=== PATIENT | male | born 1950 | race Caucasian/White ===

== ENCOUNTER 2019-07-30 14:04 | Inpatient (IN) | payer MEDICARE, MEDICAID, SELFPAY ==
[2019-07-30] VITALS (10 sets, daily range): BP systolic 88–133; BP diastolic 57–110; PULSE 77–102; RESP 12–30; TEMP 36.2; O2SAT 98–100; BMI 27.8
--- NOTE | ~2019-07-30 | XR_ITS ---
EXAMINATION: XR chest 1V portable EXAM DATE: 08/02/2019 05:52 INDICATION: Acute respiratory failure. TECHNIQUE: Portable AP frontal chest x-ray was obtained. Comparison is made to prior examination from 08/01/2019. FINDINGS: There is a left-sided chest tube in position. The left lung appears inflated. Endotracheal tube tip is 5 centimeters above the mika (ideal range is between 2 to 5 cm). Feeding tube and lef t IJ line appear in position. Moderate amount of left basilar predominant atelectasis and/or pneumonia again noted. There are no s izable pleural effusions. Cardiomediastinal silhouette is normal. There are bony degenerative méndez ges. There is aortic arterial sclerosis. There is no significant interval change compared to prior exam. IMPRESSION: 1. Line and tube(s) in position. 2. Stable airspace disease and other findings as above. Reviewed, dictated and finalized at location A.
--- NOTE | ~2019-07-30 | XR_ITS ---
EXAMINATION: XR chest port-a-cath/central INDICATION: Central line insertion TECHNIQUE: Portable AP chest at 1817 hours COMPARISON: 1501 hours FINDINGS: A left internal jugular central venous catheter has been inserted which ends with its tip i n the midsuperior vena cava. There is patchy airspace opacity of the left lung base. No pleural effus ion or pneumothorax is identified. IMPRESSION: 1. Left internal jugular central line insertion without pneumothorax. 2. Patchy opacity of the left lower lobe, likely pneumonia. Reviewed, dictated and finalized at location A.
--- NOTE | ~2019-07-30 | XR_ITS ---
EXAMINATION: XR chest 1V portable DATE: 08/11/2019 05:40 INDICATION: Left pneumothorax TECHNIQUE: frontal view of the chest was obtained. COMPARISON: Chest radiograph dated 08/11/[address] dated 08/06/2019 FINDINGS: Unchanged apically directed left chest tube. Left internal jugular central venous catheter with dista l tip at the caudal superior vena cava. No pneumothorax. Volume loss in the left hemithorax with leftward shift of the most sized heart and m ediastinum and compensatory hyperexpansion of the right lung. Hazy opacity throughout the left hemith orax with blunting at the costophrenic angle consistent with small pleural effusion. Patchy opacities at the left lung base could represent associated atelectasis and/or pneumonia. Right lung remains cl ear with no airspace disease or pleural effusion. Emphysema better appreciated on prior chest CT. Con tinued decrease in subcutaneous emphysema at the chest and base of the neck. IMPRESSION: 1. Unchanged left chest tube. No pneumothorax. 2. Persistent volume loss in left hemithorax with small left pleural effusion and left basilar atelec tasis and/or pneumonia. 3. Emphysema. Reviewed, dictated and finalized at location A. IMPRESSION: 1. Unchanged left chest tube. No pneumothorax. 2. Persistent volume loss in left hemithorax with small left pleural effusion a nd left basilar atelectasis and/or pneumonia. 3. Emphysema.
--- NOTE | ~2019-07-30 | XR_ITS ---
EXAMINATION: XR chest 1V portable DATE: 08/10/2019 05:54 INDICATION: Left pneumothorax and left lung consolidation TECHNIQUE: frontal view of the chest was obtained. COMPARISON: Chest radiograph dated 08/09/2019 FINDINGS: Unchanged apically directed left chest tube. Left internal jugular central venous catheter with dista l tip in the caudal superior vena cava. Right lung remains clear. Mild emphysematous changes at the apices. Persistent mild volume loss in th e left hemithorax with opacities in the left mid and lower lung zones. Small left pleural effusion wi th blunting at the costophrenic angle. No pneumothorax or right-sided pleural effusion. Heart size is normal. Persistent subcutaneous emphysema at the bilateral neck and chest. IMPRESSION: 1. Unchanged left chest tube with no pneumothorax. 2. No significant interval change in decreased left lung volume with small left pleural effusion and associated basilar atelectasis and/or pneumonia. 3. Emphysema. Reviewed, dictated and finalized at location A.
--- NOTE | ~2019-07-30 | XR_ITS ---
EXAMINATION: XR chest 1V portable EXAM DATE: 08/01/2019 09:19 INDICATION: Pneumothorax. TECHNIQUE: Portable AP frontal chest x-ray was obtained. Comparison is made to prior examination from earlier same date. FINDINGS: Left-sided chest tube has been removed. There has been redevelopment of a moderate-sized le ft-sided pneumothorax, pleural reflection has been indicated. Left axillary, thoracic wall and subcut aneous gas. Endotracheal tube tip is 5 centimeters above the mika (ideal range is between 2 to 5 cm). There is a left-sided IJ venous line in position. There is a nasogastric tube seen with tip collimated off th e study, but below the left hemidiaphragm. Patchy left basilar segmental atelectasis and/or pneumonia not significantly changed. Cardiomediastinal silhouette is normal. There is aortic arterial sclerosi s. There are bony degenerative changes. IMPRESSION: 1. Redevelopment of moderate size left-sided pneumothorax. 2. Left basilar multifocal atelectasis and/or pneumonia unchanged. Reviewed, dictated and finalized at location A.
--- NOTE | ~2019-07-30 | XR_ITS ---
EXAMINATION: XR chest 1V portable DATE: 08/05/2019 22:19 INDICATION: Chest tube with desaturations. TECHNIQUE: frontal view of the chest was obtained. COMPARISON: Chest radiograph dated 08/05/2019 FINDINGS: Apically directed left chest tube appears unchanged in position. No evident pneumothorax. Increasing opacities in the left lung which is decreased in volume with interval increase in leftward shift of t he heart and mediastinum. Right hemithorax remains clear with no focal airspace opacities, pulmonary edema or pleural effusion. Heart size is normal. Atherosclerotic aorta. Extensive subcutaneous emphys maritza throughout the chest likely related to chest tube placement. IMPRESSION: 1. Left chest tube in expected position with no evident residual left pneumothorax. 2. Increasing opacities throughout the left lung primarily to partial collapse of the left lung with leftward shift of the heart and mediastinum. Superimposed pneumonia not excludable. Reviewed, dictated and finalized at location A. IMPRESSION: 1. Left chest tube in expected position with no evident residual left pneumotho rax. 2. Increasing opacities throughout the left lung primarily to partial collapse of the left lung with leftward shift of the heart and mediastinum. Superimposed pneumonia not excludable.
--- NOTE | ~2019-07-30 | XR_ITS ---
EXAMINATION: XR chest 1V portable EXAM DATE: 08/01/2019 05:54 INDICATION: Left-sided pneumothorax. TECHNIQUE: Portable AP frontal chest x-ray was obtained. Comparison is made to prior examination from 07/30/2019. FINDINGS: There is a left-sided chest tube, which has retracted, with the tip still overlying the le ft hemithorax but the side-port now on the lateral aspect of the subcutaneous tissues. There is a yadi ogastric tube seen with tip collimated off the study, but below the left hemidiaphragm. There is a le ft IJ venous line overlying expected position. Moderate amount of left basilar predominant airspace disease. There are no sizable pleural effusions . There is no pneumothorax suspected. Cardiomediastinal silhouette is normal. The bones and soft tissues are unremarkable. Airspace disease appears to have mildly progressed compared to prior stud y. IMPRESSION: 1. Thoracic chest tube retraction with side port now in subcutaneous tissues. No evidence of pneumot horax. 2. Moderate left basilar atelectasis and/or pneumonia. I discussed chest tube position with nurse with nurse Dale at 08/01/2019 07:06 CDT . Reviewed, dictated and finalized at location A. IMPRESSION: 1. Thoracic chest tube retraction with side port now in subcutaneous tissues. No evidence of pneumothorax. 2. Moderate left basilar atelectasis and/or pneumonia. I discussed chest tube position with nurse with nurse Dale at 08/01/2019 07:0 6 CDT .
--- NOTE | ~2019-07-30 | XR_ITS ---
XR chest 1V portable 08/05/2019 02:50 Indication: Acute respiratory failure. Procedure: AP portable chest Comparison: Comparison to multiple prior studies sequentially, with oldest reviewed study dated 08/01. Findings: There has been significant progression of extensive subcutaneous emphysema of the neck and chest. There is a possible left pneumothorax, difficult to assess due to subcutaneous emphysema. Ther e is leftward mediastinal shift consistent with left lung collapse. There is subdiaphragmatic lucency which may relate to subcutaneous emphysema, distended bowel although pneumoperitoneum is not exclude d. Left IJ central line tip in the SVC. Impression: 1: Probable left pneumothorax with underlying compressive atelectasis. Mediastinal shift to the left, consistent with collapse. 2: Extensive subcutaneous emphysema of the neck and chest bilaterally which has progressed since larisa or examination. 3: Cannot exclude free intraperitoneal gas based on this examination. Reviewed, dictated and finalized at location A. Impression: 1: Probable left pneumothorax with underlying compressive atelectasis. Mediasti nal shift to the left, consistent with collapse. 2: Extensive subcutaneous emphysema of the neck and chest bilaterally which fernandes s progressed since prior examination. 3: Cannot exclude free intraperitoneal gas based on this examination.
--- NOTE | ~2019-07-30 | XR_ITS ---
XR abdomen NG/feed tube rechec DATE: 07/31/2019 09:03 INDICATION: Advancement of NG tube; recheck position TECHNIQUE: Portable supine AP view on 07/31/2019 at 0856 hours COMPARISON: 07/30/2019 portable supine AP view at 1925 hours FINDINGS: NG tube tip now overlies the distal body of the stomach. There is some gas distended small bowel segments as well as transverse colon. There is extensive calcification and tortuosity of the abdominal aorta and extensive calcification of the common, internal and external iliac arteries. Renal artery calcifications are noted. IMPRESSION: NG tube in distal body of stomach Reviewed, dictated and finalized at Location A. Reviewed, dictated and finalized at location B.
--- NOTE | ~2019-07-30 | XR_ITS ---
EXAMINATION: XR chest 1V portable DATE: 08/13/2019 05:43 INDICATION: Left pneumothorax TECHNIQUE: frontal view of the chest was obtained. COMPARISON: Chest radiograph dated 08/12/2019 FINDINGS: Unchanged apically directed left chest tube. No pneumothorax. Minimal change in a gradient of lower l vinnie predominant hazy airspace opacity throughout the left hemithorax with blunting at the costophreni c angle consistent with small left pleural effusion with associated basilar atelectasis and/or pneumo leonel. Hyperexpansion of lungs with increased lucency at the apices consistent with emphysema. Right johana ng remains clear with no pulmonary edema or pleural effusion. Persistent volume loss in left hemithor ax with mild leftward shift of the normal sized heart and mediastinum left internal jugular central v enous catheter with distal tip at the caudal superior vena cava. IMPRESSION: 1. Unchanged left chest tube. No pneumothorax. 2. Unchanged small left pleural effusion with associated atelectasis and/or pneumonia in the lower johana ng zone. 3. Emphysema. Reviewed, dictated and finalized at location A. IMPRESSION: 1. Unchanged left chest tube. No pneumothorax. 2. Unchanged small left pleural effusion with associated atelectasis and/or pne umonia in the lower lung zone. 3. Emphysema.
--- NOTE | ~2019-07-30 | XR_ITS ---
EXAMINATION: XR chest 1V portable DATE: 08/08/2019 05:30 INDICATION: Left pneumothorax and left lung consolidation TECHNIQUE: frontal view of the chest was obtained. COMPARISON: Chest radiograph dated 08/07/2019 FINDINGS: No interval change in position of an apically directed left chest tube. Left internal jugular central venous catheter with distal tip in the midsuperior vena cava. Emphysema. No significant interval change in airspace opacities in the left mid to lower lung zone co nsistent with small left pleural effusion and associated atelectasis and/or pneumonia. Right lung rem ains clear. No pneumothorax or right-sided pleural effusion. Cardiomediastinal silhouette remains wit hin normal limits accounting for leftward rotation of the patient. Extensive subcutaneous gas at the chest and neck and small amount of pneumomediastinum, both likely related to chest tube placement. IMPRESSION: 1. No significant change accounting for changes in patient positioning and a small left pleural effus ion with associated atelectasis and/or pneumonia. 2. Emphysema. Reviewed, dictated and finalized at location A. IMPRESSION: 1. No significant change accounting for changes in patient positioning and a sm all left pleural effusion with associated atelectasis and/or pneumonia. 2. Emphysema.
--- NOTE | ~2019-07-30 | XR_ITS ---
EXAMINATION: XR chest 1V portable EXAM DATE: 08/03/2019 05:23 INDICATION: Acute respiratory failure. Intubated. TECHNIQUE: Portable AP frontal chest x-ray was obtained. Comparison is made to prior examination from 08/02/2019. FINDINGS: There is a left-sided chest tube in position. The left lung appears inflated. Endotracheal tube tip is 6 centimeters above the mika (ideal range is between 2 to 5 cm). Feeding tube and left IJ line appear in position. Moderate amount of left basilar predominant atelectasis and/or pneumonia. There are no sizable pleur al effusions. Cardiomediastinal silhouette is normal. There are bony degenerative changes. There i s aortic arterial sclerosis. There is no significant interval change compared to prior exam. IMPRESSION: 1. ET tube could be safely advanced 1-2 cm. 2. Stable airspace disease and other findings as above. Reviewed, dictated and finalized at location A.
--- NOTE | ~2019-07-30 | XR_ITS ---
EXAMINATION: XR chest ET placement INDICATION: Endotracheal tube insertion TECHNIQUE: Portable AP chest at 1925 hours COMPARISON: 1810 hours FINDINGS: An endotracheal tube has been inserted which ends 4.1 cm above the mika. A left internal jugular central venous catheter ends in the midsuperior vena cava. Patchy opacities of the left lung base persist. There is been development of opacities in the mid and upper lung zones. A nasogastric h as been inserted which ends with its tip at the gastroesophageal junction. The cardiomediastinal silh ouette is normal. A small left pneumothorax has developed. IMPRESSION: 1. Small left pneumothorax. These findings were discussed with Dr. Johnie López MD in the Emergenc y Department at 1946 hours on 07/30/2019. 2. Endotracheal tube ending 4.1 cm above the mika. 3. Patchy opacities of the mid and upper lung zones and left lower lobe, likely pneumonia and/or pulm onary edema. 4. Nasogastric tube ending at the gastroesophageal junction which can be safely advanced 11 cm. Reviewed, dictated and finalized at location A. IMPRESSION: 1. Small left pneumothorax. These findings were discussed with Dr. Johnie harris MD in the Emergency Department at 1946 hours on 07/30/2019. 2. Endotracheal tube ending 4.1 cm above the mika. 3. Patchy opacities of the mid and upper lung zones and left lower lobe, likely pneumonia and/or pulmonary edema. 4. Nasogastric tube ending at the gastroesophageal junction which can be safely advanced 11 cm.
--- NOTE | ~2019-07-30 | XR_ITS ---
EXAMINATION: XR chest 1V portable EXAM DATE: 08/02/2019 07:59 INDICATION: Chest tube changed to waterseal. TECHNIQUE: Portable AP frontal chest x-ray was obtained. Comparison is made to prior examination from earlier same date. FINDINGS: There is a left-sided chest tube in position. The left lung appears inflated. Endotracheal tube tip is 6 centimeters above the mika (ideal range is between 2 to 5 cm). Feeding tube and lef t IJ line appear in position. Moderate amount of left basilar predominant atelectasis and/or pneumonia again noted. There are no s izable pleural effusions. Cardiomediastinal silhouette is normal. There are bony degenerative méndez ges. There is aortic arterial sclerosis. There is no significant interval change compared to prior exam. IMPRESSION: 1. ET tube could be safely advanced 1-2 cm. 2. Stable airspace disease and other findings as above. Reviewed, dictated and finalized at location A.
--- NOTE | ~2019-07-30 | XR_ITS ---
XR chest 1V portable DATE: 08/13/2019 16:40 INDICATION: Removal of left chest TECHNIQUE: Portable AP chest, 2 views, on 08/13/2019 at 1636 and 1637 hours COMPARISON: 08/13/2019 portable AP chest at 0533 hours FINDINGS: There is interval removal of left thoracostomy tube since 0533 hours today. There is persistent left lower lung infiltrate/atelectasis with leftward shift of the heart mediastin um and compensatory hyperaeration of the right lung. No pneumothorax is evident. Mild blunting of the left costophrenic angle suggests mild left pleural effusion. No right pleural effusion. Normal heart size. Aortic calcification. Diffuse osteopenia. IMPRESSION: Removal of left thoracostomy tube; no pneumothorax Persistent left lower lung infiltrate/atelectasis and mild left pleural effusion Reviewed, dictated and finalized at location B. IMPRESSION: Removal of left thoracostomy tube; no pneumothorax Persistent left lower lung infiltrate/atelectasis and mild left pleural effusio n
--- NOTE | ~2019-07-30 | XR_ITS ---
EXAMINATION: XR chest 1V portable DATE: 08/09/2019 07:40 INDICATION: Change chest tube to waterseal from suction. TECHNIQUE: frontal view of the chest was obtained. COMPARISON: Chest radiograph dated 08/09/2019 at 5:[address] dated 08/06/2019 FINDINGS: Unchanged position of an apically directed left chest tube. Left internal jugular central venous cath eter with distal tip at the caudal superior vena cava. Decreased left lung volume accentuated by leftward rotation. Opacities in the left mid and lower lung zone consistent with small bilateral pleural effusion and associated atelectasis and/or pneumonia. N o pneumothorax. Right lung is clear with increased lucency in the lower lung zone likely related to e mphysema better appreciated on prior CT. No pulmonary edema or right-sided pleural effusion. Heart si ze is normal. Subcutaneous emphysema at the neck and left chest wall. There is also mild pneumomedias tinum. IMPRESSION: 1. No pneumothorax. 2. Decreased left lung volume with persistent opacities in the mid and lower lung zone which could re present atelectasis and/or pneumonia. 3. Small left pleural effusion. 4. Emphysema. Reviewed, dictated and finalized at location A. IMPRESSION: 1. No pneumothorax. 2. Decreased left lung volume with persistent opacities in the mid and lower johana ng zone which could represent atelectasis and/or pneumonia. 3. Small left pleural effusion. 4. Emphysema.
--- NOTE | ~2019-07-30 | XR_ITS ---
EXAMINATION: XR chest-chest tube insert/pos DATE: 08/01/2019 11:40 CDT INDICATION: Left pneumothorax post chest tube placement TECHNIQUE: frontal view of the chest was obtained. COMPARISON: Chest radiograph dated 08/01/2019 at 9:15 AM FINDINGS: Endotracheal tube tip 5.1 cm above the mika. Left internal jugular central venous catheter with dis wendi tip at the caudal superior vena cava. Nasogastric tube with proximal side-port in the body of the stomach and with distal tip collimated off the study. Interval placement of an apically directed left thoracostomy tube with resolution of prior left pneum othorax. Persistent interstitial and airspace opacities in the left mid and lower lung zones. No pleu ral effusion. No right-sided airspace disease or pneumothorax. The cardiomediastinal silhouette is no rmal. Persistent subcutaneous gas along the left chest wall related to an earlier chest tube placemen t. IMPRESSION: 1. Resolution of left pneumothorax post placement of a new left chest tube. 2. Lung disease in the left mid to lower lung zone which could represent atelectasis, pneumonia or as ymmetric pulmonary edema. Reviewed, dictated and finalized at location A. IMPRESSION: 1. Resolution of left pneumothorax post placement of a new left chest tube. 2. Lung disease in the left mid to lower lung zone which could represent atelec tasis, pneumonia or asymmetric pulmonary edema.
--- NOTE | ~2019-07-30 | XR_ITS ---
XR chest 1V portable 08/05/2019 09:07 Indication: Change of chest tube system. Left pneumothorax.. Procedure: AP portable chest Comparison: 08/05/2019 Findings: Left apical chest tube present. Left IJ central line tip in the SVC. Significantly decrease d size of left pneumothorax with possible residual pneumothorax at the left lung base. Decreased left airspace consolidation, consistent with resolving atelectasis. Persistent mild mediastinal shift to the left. Decreased subcutaneous gas of the neck and chest. Right lung clear. Impression: 1: Decreased size of left pneumothorax and improved left basilar airspace consolidation, likely resol ving collapse. Reviewed, dictated and finalized at location A. Impression: 1: Decreased size of left pneumothorax and improved left basilar airspace conso lidation, likely resolving collapse.
--- NOTE | ~2019-07-30 | XR_ITS ---
XR chest 1V portable DATE: 07/30/2019 15:03 INDICATION: Shortness of breath TECHNIQUE: Portable upright AP chest on 07/30/2019 at 1503 hours COMPARISON: None FINDINGS: There is interstitial prominence in the left lower lung field which may be due to interstit ial pneumonitis or fibrosis. The lungs are clear of infiltrate or consolidation otherwise. There is minimal if any left pleural ef fusion. No right pleural effusion. Normal heart size. Aortic calcification and mild unfolding. Diffuse osteopenia. IMPRESSION: Interstitial infiltrate versus interstitial fibrosis, left lower lung. Interstitial pneum onia is favored; clinical correlation is advised. Reviewed, dictated and finalized at location B. IMPRESSION: Interstitial infiltrate versus interstitial fibrosis, left lower johana ng. Interstitial pneumonia is favored; clinical correlation is advised.
--- NOTE | ~2019-07-30 | XR_ITS ---
EXAMINATION: XR chest 1V portable INDICATION: Hypoxia TECHNIQUE: Portable AP chest at 0918 hours COMPARISON: 08/05/2019 FINDINGS: There is improved aeration of the left lung compared to prior examination. Left basilar air space opacities persist. A left chest tube projects in expected position without evidence of residual pneumothorax. There is extensive subcutaneous emphysema. A left internal jugular central venous cath eter ends with its tip in the distal superior vena cava. The cardiomediastinal silhouette is stable. IMPRESSION: 1. Improved aeration of the left lung with minimal residual opacity of the left lung base, consistent with atelectasis and/or pneumonia. 2. Left chest tube in expected position without visible pneumothorax. 3. Extensive subcutaneous emphysema. Reviewed, dictated and finalized at location B.
--- NOTE | ~2019-07-30 | XR_ITS ---
EXAMINATION: XR chest 1V portable DATE: 08/09/2019 05:41 INDICATION: Left pneumothorax. Left lung consolidation. TECHNIQUE: frontal view of the chest was obtained. COMPARISON: Chest radiograph dated 08/08/2019 FINDINGS: Unchanged position of the apically directed left chest tube. Left internal jugular central venous cat heter with distal tip at the caudal superior vena cava. Small left pleural effusion with persistent o pacities in the left lower lung zone. Right lung remains clear. No pulmonary edema, pneumothorax or r ight-sided pleural effusion. Cardiac mediastinal silhouette unchanged and within normal limits accoun ting for leftward rotation of the patient. Again seen is subcutaneous edema at the left chest and cristian ateral neck along with small amount of mediastinal emphysema. IMPRESSION: 1. Minimal change in a small left pleural effusion and left basilar opacities which could represent a telectasis and/or pneumonia. Reviewed, dictated and finalized at location A. IMPRESSION: 1. Minimal change in a small left pleural effusion and left basilar opacities w hich could represent atelectasis and/or pneumonia.
--- NOTE | ~2019-07-30 | CT_ITS ---
EXAMINATION:CT chest high resolution wo co DATE: 08/06/2019 16:07 INDICATION: Hypoxemia. Left pneumothorax. TECHNIQUE: Computed tomography (CT) of the chest was performed without intravenous contrast. Automate d exposure control and iterative reconstruction technique were employed. The dose-length product (DLP ) was 175.09 mGy-cm. COMPARISON: Chest single view 07/30/2019, 08/06/2019 FINDINGS: There is moderate emphysema. There is mild scarring at the lung apices. There are extensive airspace opacities in left lower lobe with volume loss. There are dependent airspace opacities in ri ght lower lobe. There are small pleural effusions, left greater than right. The left-sided pleural ef fusion demonstrates mixed attenuation. There is a left-sided chest tube in the pleural space anterior ly with tip abutting the mediastinum. Pneumomediastinum is noted. There is extensive soft tissue gas in the chest and neck bilaterally. No pneumothorax. The heart size is normal. There are coronary darren ry calcifications. No pericardial effusion. There is a left internal jugular central venous catheter with tip in superior vena cava. There is cortical thinning of left kidney. There is mild thoracic spo ndylosis. IMPRESSION: 1. Small pleural effusions, left worse than right. The left pleural effusion demonstrates mixed atten uation, consistent with an exudate. Left-sided chest tube in the anterior pleural space. 2. Extensive airspace opacities in left lower lobe with volume loss, likely at least predominantly at electasis. Pneumonia cannot be excluded. Mild dependent atelectasis in right lower lobe. 3. Moderate emphysema. Reviewed, dictated and finalized at location A. IMPRESSION: 1. Small pleural effusions, left worse than right. The left pleural effusion de monstrates mixed attenuation, consistent with an exudate. Left-sided chest tube in the anterior pleural space. 2. Extensive airspace opacities in left lower lobe with volume loss, likely at least predominantly atelectasis. Pneumonia cannot be excluded. Mild dependent a telectasis in right lower lobe. 3. Moderate emphysema.
--- NOTE | ~2019-07-30 | XR_ITS ---
EXAMINATION: XR chest 1V portable INDICATION: Chest tube insertion TECHNIQUE: Portable AP chest at 8 hours COMPARISON: 5 hours FINDINGS: A left-sided chest tube has been inserted. The previously described left pneumothorax is no longer evident. The nasogastric tube has advanced into the stomach. The endotracheal tube ends 4.3 c m above the mika. Again seen are patchy opacities of the left lung base and bilateral mid and upper lung zones. There is no pleural effusion. Cardiomediastinal silhouette is stable.. IMPRESSION: 1. No persistent pneumothorax post chest tube insertion. 2. Nasogastric tube advanced into the stomach. Otherwise, no significant interval change. Reviewed, dictated and finalized at location A. IMPRESSION: 1. No persistent pneumothorax post chest tube insertion. 2. Nasogastric tube advanced into the stomach. Otherwise, no significant interv al change.
--- NOTE | ~2019-07-30 | XR_ITS ---
EXAMINATION: XR chest 1V portable DATE: 08/12/2019 05:22 INDICATION: Left pneumothorax TECHNIQUE: frontal view of the chest was obtained. COMPARISON: Chest radiograph dated 08/11/[address] dated 08/06/2019 FINDINGS: Change apically directed left chest tube. Left internal jugular central venous catheter with distal t ip at the caudal superior vena cava. Improving aeration of the left lung. No pneumothorax. Opacities throughout the left lung with basilar predominance and blunting at the left costophrenic angle. Right lung remains hyperexpanded but clear with no pulmonary edema or right pleural effusion. Mild leftward shift of the normal sized heart and mediastinum likely exaggerated by some leftward rotation of the patient. IMPRESSION: 1. Unchanged left chest tube. No pneumothorax. 2. Improving aeration in the left lung with persistent opacities consistent with small left pleural e ffusion and associated atelectasis and/or pneumonia. 3. Emphysema. Reviewed, dictated and finalized at location A. IMPRESSION: 1. Unchanged left chest tube. No pneumothorax. 2. Improving aeration in the left lung with persistent opacities consistent wit h small left pleural effusion and associated atelectasis and/or pneumonia. 3. Emphysema.
--- NOTE | ~2019-07-30 | XR_ITS ---
EXAMINATION: XR abdomen NG/feed tube insert INDICATION: Nasogastric tube placement TECHNIQUE: Portable AP [id number] at 1925 hours COMPARISON: None available FINDINGS: The tip of the nasogastric tube ends at the gastroesophageal junction. The proximal side po rt is in the distal esophagus. There patchy opacities of the mid and upper lung zones and left lung b ase. A small left pneumothorax is identified. There is gaseous distention of the transverse colon. IMPRESSION: 1. Nasogastric tube with its tip at the gastroesophageal junction, can be safely advanced 11 cm. 2. Small left pneumothorax. ER aware. Reviewed, dictated and finalized at location A. IMPRESSION: 1. Nasogastric tube with its tip at the gastroesophageal junction, can be safel y advanced 11 cm. 2. Small left pneumothorax. ER aware.
--- NOTE | ~2019-07-30 | XR_ITS ---
XR chest 1V portable 08/04/2019 06:23 Indication: Acute respiratory failure Procedure: AP portable chest Comparison: Comparison to multiple prior studies sequentially, with oldest reviewed study dated 07/31. Findings: Interval removal of endotracheal and NG tubes. Diffuse bilateral airspace disease, likely e lisa. Heart size normal. Subcutaneous gas in the neck left chest wall. Left-sided apical chest tube i n position. No definite pneumothorax. Left IJ central line tip in the SVC. Atherosclerosis. Impression: 1: Cardiomegaly with pulmonary edema. Cannot exclude superimposed pneumonia. 2: Extensive subcutaneous emphysema. Reviewed, dictated and finalized at location A. Impression: 1: Cardiomegaly with pulmonary edema. Cannot exclude superimposed pneumonia. 2: Extensive subcutaneous emphysema.
--- NOTE | ~2019-07-30 | XR_ITS ---
EXAMINATION: XR chest 1V portable DATE: 08/15/2019 08:26 INDICATION: Left pneumothorax. TECHNIQUE: A single frontal view of the chest was obtained on 2 radiographs. COMPARISON: Chest single view 08/13/2019, chest CT 08/06/2019 FINDINGS: There is mild scarring at the lung apices. There are airspace opacities in left mid and low er lung zones with a basilar predominance. There is gas in left chest wall with improvement from 08/05. Again seen is a small volume of pneumomediastinum. No pleural effusion or pneumothorax. The he art size is normal. IMPRESSION: 1. No pneumothorax. 2. Persistent pneumomediastinum. 3. Unchanged airspace opacities in left mid and lower lung zones with a basilar predominance, consist ent with atelectasis versus pneumonia. Reviewed, dictated and finalized at location A. IMPRESSION: 1. No pneumothorax. 2. Persistent pneumomediastinum. 3. Unchanged airspace opacities in left mid and lower lung zones with a basilar predominance, consistent with atelectasis versus pneumonia.
--- NOTE | ~2019-07-30 | XR_ITS ---
EXAMINATION: XR chest 1V portable DATE: 08/07/2019 05:48 INDICATION: Left pneumothorax and left lung consolidation. TECHNIQUE: frontal view of the chest was obtained. COMPARISON: Chest radiograph and CT dated 08/06/2019 FINDINGS: No interval change in position of a posterior directed left chest tube. Left internal jugular central venous catheter with distal tip at the caudal superior vena cava. Emphysema with hyperexpansion of l ungs. Increasing gradient of a predominant hazy airspace opacity in the left mid to lower lung zone c onsistent with small posteriorly layering pleural effusion with superimposed atelectasis and/or pneum onia. No pneumothorax or definitive right pleural effusion. Diffuse subcutaneous emphysema throughout the chest and neck. IMPRESSION: 1. Increasing small left pleural effusion with associated atelectasis and/or pneumonia. 2. Emphysema. Reviewed, dictated and finalized at location A. IMPRESSION: 1. Increasing small left pleural effusion with associated atelectasis and/or pn eumonia. 2. Emphysema.
--- NOTE | 2019-07-30 14:10 | ECG_ITS ---
Measurements Intervals [place] Rate: 96 P: 58 WV: 137 QRS: 16 QRSD: 90 T: 58 QT: 320 QTc: 406 Interpretive Statements SINUS OR ECTOPIC ATRIAL RHYTHM LOW QRS VOLTAGE IN LIMB LEADS BORDERLINE R WAVE PROGRESSION, ANTERIOR LEADS BASELINE WANDER- II, III, AVF, V1, V3-V6 BORDERLINE ECG Electronically Signed On 07-30-2019 15:21:08 CDT by Morgan Stevens D.O.
--- NOTE | 2019-07-30 14:15 | ED.GENADULT ---
HPI - General Adult General Chief complaint: Unspecified Stated complaint: low blood pressure Time Seen by Provider: 07/30/19 14:15 Source: patient and EMS Mode of arrival: ambulatory Limitations: other (poor historian) History of Present Illness HPI narrative: A 69 y/o male presents to the ED with c/o low BP. Per EMS, they were called out by pt's wound care doctor for hypovolemic shock. Pt denies any pain at this time and told EMS that he just wanted to eat. He denies CP, N/V, fever, and chills. A complete HPI is limited due to poor historian. Related Data Allergies Allergy/AdvReac Type Severity Reaction Status Date / Time No Known Allergies Allergy Unverified 03/11/16 06:58 Review of Systems Review of Systems: Narrative: A complete ROS is limited due to poor historian. Constitutional: Constitutional: Denies chills and Denies fever(s) Cardiovascular: Cardiovascular: Denies chest pain Comments: Reports: low BP Gastrointestinal: Gastrointestinal: Denies nausea and Denies vomiting [facility] Past Medical History Medical History Bladder mass CHF (congestive heart failure) COPD (chronic obstructive pulmonary disease) Dementia Emphysema lung GERD (gastroesophageal reflux disease) HLD (hyperlipidemia) HTN (hypertension) PVD (peripheral vascular disease) Surgical History Surgical History History of below-knee amputation of both lower extremities Social History Social History (Updated 07/30/19 @ 14:22 by Muna Cheung) Smoking status: Smoker, status unknown Comments PCP: Dr. Negrete Exam Narrative: Exam Narrative: GENERAL: [id number], undernourished, and in no acute distress. HEAD: Normocephalic, atraumatic. EYES: PERRLA and EOMI. ENT: Nares clear, Mucous membranes moist. NECK: Supple. CHEST: Clear to auscultation. No respiratory distress. HEART: Tachycardic. No murmur heard. Normal peripheral pulses. ABDOMEN: Soft, non tender,, normal active bowel sounds. EXTREMITIES: Normal range of motion. No edema. Bilateral BKA SKIN: Warm, dry, no rash. NEURO: No focal deficits. Alert and oriented x2 PSYCH: Normal mood and affect. Course Course Emergency Course: Patient did not respond to IV boluses, central line was placed in the left internal jugular, Levophed was started IV Zosyn and vancomycin was given. Vital Signs Vital signs: Vital Signs Temperature 36.2 C L 07/30/19 14:00 Pulse Rate 97 07/30/19 14:00 Respiratory Rate 28 H 07/30/19 14:00 Blood Pressure 133/110 H 07/30/19 14:00 Pulse Oximetry 98 07/30/19 14:00 Temperature 36.2 C L 07/30/19 14:00 Pulse Rate 102 H 07/30/19 15:33 Respiratory Rate 30 H 07/30/19 15:33 Blood Pressure 104/86 07/30/19 15:33 Pulse Oximetry 98 07/30/19 15:33 Procedures Central Line Placement Left IJ: Central Line Date: 07/30/19 Central Line Time: 18:36 Time Out Performed: Yes Patient Placed on Monitor/Pulse Ox: Yes Max. Sterile Barrier Technique: Caps, large sterile sheet and hand hygiene Central Line Prep: 2% chlorhexidine scrub Technique: US-Guided Local Anesthetic: lidocaine 1% Ultrasound Used for Placement: Yes Central Line Lumen Inserted: triple Post Procedure: sutured in place and good blood return Post Procedure X-Ray: tip of catheter in good position Additional Comments: Dr Rm was at bed side doing procedure . Medical Decision Making Vital Signs Vital Signs: Vital Signs Temperature 36.2 C L 07/30/19 14:00 Pulse Rate 97 07/30/19 14:00 Respiratory Rate 28 H 07/30/19 14:00 Blood Pressure 133/110 H 07/30/19 14:00 Pulse Oximetry 98 07/30/19 14:00 Temperature 36.2 C L 07/30/19 14:00 Pulse Rate 102 H 07/30/19 15:33 Respiratory Rate 30 H 07/30/19 15:33 Blood Pressure 104/86 07/30/19 15:33 Pulse Oximetry 98 03
[2019-07-30 14:47] LABS: Hematocrit 33.6 % (42.0-52.0); Hemoglobin 10.3 g/dL (14.0-18.0); Mean Corpuscular HGB Conc 30.7 g/dl (32-36); Mean Corpuscular Hemoglobin 29.3 pg (26-34); Mean Corpuscular Volume 95.5 fl (80-100); Mean Platelet Volume 10.6 fl (7.4-10.4); Platelet Count Result 335 k/mm3 (150-375); Red Blood Count 3.52 M/mm3 (4.6-6.20); Red Cell Distribution Width 15.7 % (11.5-14.5)
[2019-07-30 15:05] LABS: Albumin Level 3.6 g/dL (3.5-5.1); Alkaline Phosphatase 85 U/L (38-126); Aspartate Amino Transferase 92 U/L (17-59); Bilirubin,Total 0.9 mg/dL (0.2-1.3); Blood Urea Nitrogen 55 mg/dL (9-20); Calcium 9.2 mg/dL (8.4-10.2); Carbon Dioxide 13 mmol/L (22-30); Chloride 102 mmol/L (98-107); Estimated Glomerular Filt Rate 26; Glucose 92 mg/dL (75-110); Potassium 4.4 mmol/L (3.4-5.0); Sodium 140 mmol/L (137-145)
[2019-07-30 15:16] LABS: Troponin I 0.093 ng/mL (0.000-0.034)
[2019-07-30 15:17] LABS: Lactic Acid Reflex 12.3 mmol/L (0.7-2.1)
[2019-07-30 15:18] LABS: Alanine Aminotransferase 46 U/L (4-50)
[2019-07-30 15:24] LABS: Band Neutrophils Percent 3 % (0-6); Lymphocytes Absolute Manual 2.99 K/mm3 (1.1-4.5); Monocytes Absolute Manual 2.53 K/mm3 (0.1-0.90); Monocytes Percent Manual 11 % (3-9); Neutrophils Absolute Manual 17.48 K/mm3 (1.3-6.7); Neutrophils Percent Manual 73 % (46-73); Platelet Estimate Adequate (Adequate); Total Cells Counted 100
[2019-07-30] MEDS: SODIUM CHLORIDE 0.9% IV 1,000 ML 999 ML IV CONT ×2 (16:54→21:00)
[2019-07-30] MEDS: SODIUM CHLORIDE 0.9% IV 1,000 ML 999 ML (16:55)
[2019-07-30 17:03] LABS: Add Urine Microscopic? YES; Appearance Urine Cloudy (Clear); Bacteria Urine 4+ /hpf; Bilirubin Urine Negative (Negative); Blood Urine 1+ (Negative); Budding Yeast Urine Present /hpf; Color Urine Yellow (Yellow); Glucose Urine UA 1+ mg/dL (Negative); Ketones Urine Trace mg/dL (Negative); Leukocyte Esterase Ur Trace LEU/UL (Negative); Nitrate Urine Negative (Negative); Protein Urine 3+ mg/dL (Negative); Specific Grav Ur 1.018 (1.001-1.035); Squamous Epithelial Cell Urine Few /hpf (Few); Urobilinogen Urine Negative mg/dL (<2.0); WBC Clumps Urine Present /HPF; WBC Urine >75 /hpf
[2019-07-30 17:45] LABS: Reflex Lactic Acid Yes or No Add Lactic
[2019-07-30] MEDS: LORAZEPAM INJ 2 MG/ML VIAL (17:50)
[2019-07-30] MEDS: NOREPINEPHRINE 8 MG/D5W 250 ML 8 MG/250 ML BAG 9.4 MG IV CONT (18:27)
--- NOTE | 2019-07-30 19:00 | PC.NURSE ---
1903 10mg Etomidate given via IV 190 80mg Succinylcholine given via IV 190 Intubation completed 21 at the lip, placed by EDP. 1908 NG tube placed X rays ordered for placement.
--- NOTE | 2019-07-30 19:40 | PC.NURSE ---
Called at 1934 to ICU to give report. Ramona HAGEN took report.
--- NOTE | 2019-07-30 20:16 | PM.IMHP ---
H&P: HPI History of Present Illness Chief complaint: Left pneumothorax Narrative: This is a 69 year old male with known HTN, COPD, CHF, and b/l BKA who presented to the hospital from his wound care doctor secondary to hypotension. The patient was found to be significantly hypotensive and did recieve 2 liters of IV fluids in the ER. A left IJ central line was placed and the patient was started on levophed. He was found to be in septic shock w/ an elevated WBC, abnormal urinalysis, elevated lactic acid of 12.3. The patient was started on wide spectrum IV antiboitics. Document Specialist, Dr. Her was consulted by ER provider. The patient decompensated while in the ER and was emergently intubated and placed on mechanical ventilation. On my encounter with the patient he is alone and on mechanical ventilation. There is no family present and no further history is obtainable at this time. Review of Systems Review of Systems: ROS unobtainable: unobtainable due to endotracheal tube and unobtainable due to mental condition PMFSH Past Medical History Medical History Bladder mass CHF (congestive heart failure) COPD (chronic obstructive pulmonary disease) Dementia Emphysema lung GERD (gastroesophageal reflux disease) HLD (hyperlipidemia) HTN (hypertension) PVD (peripheral vascular disease) Surgical History Surgical History History of below-knee amputation of both lower extremities Social History Social History Smoking status: Smoker, status unknown Additional smoking assessment comments: Patient unable to answer questions. Sedated/intubated. Alcohol intake: unknown Substance use: unknown Spiritual care concerns: No Meds Home Medications and Allergies Home Medications Medication Instructions Recorded Confirmed Type acetaminophen 650 mg PO Q4-6H PRN 07/30/19 07/30/19 History amlodipine 10 mg PO DAILY 07/30/19 07/30/19 History aspirin [Aspir-81] 81 mg PO DAILY 07/30/19 07/30/19 History atorvastatin 10 mg PO HS 07/30/19 07/30/19 History cholecalciferol (vitamin D3) 50,000 unit PO MONTHLY 07/30/19 07/30/19 History clotrimazole-betamethasone 1 applic TOPICAL BID 07/30/19 07/30/19 History divalproex 250 mg PO BID 07/30/19 07/30/19 History lisinopril 2.5 mg PO DAILY 07/30/19 07/30/19 History metoprolol succinate 25 mg PO DAILY 07/30/19 07/30/19 History mtgevbaqkrgd-brfkfwov-mlwdmj 1 tablet PO DAILY 07/30/19 07/30/19 History [Multivitamin 50 Plus] omeprazole 20 mg PO DAILY 07/30/19 07/30/19 History Allergies Allergy/AdvReac Type Severity Reaction Status Date / Time No Known Allergies Allergy Unverified 03/11/16 06:58 Vital Signs Vital Signs - 24 hr 07/30/19 14:00 07/30/19 14:07 07/30/19 14:45 Temperature 36.2 C L Pulse Rate 97 97 Respiratory Rate 28 H 24 H Blood Pressure 133/110 H Pulse Oximetry 98 98 07/30/19 15:33 07/30/19 19:13 07/30/19 19:42 Temperature Pulse Rate 102 H 95 89 Respiratory Rate 30 H 16 12 Blood Pressure 104/86 88/73 L 93/57 L Pulse Oximetry 98 100 100 Exam Const: General: ill appearing and other (Intubated and on mechanical ventilation. ) Nutritional Appearance: cachectic and thin Orientation/consciousness: Other orientation findings (Intubated and on mechanical ventilation. ) HENMT: Head: normal to inspection General nose exam: Normal external nose present Face and sinus: normal facial exam Eyes: Pupils: Equal, round and reactive pupils present Neck: Neck: supple and no JVD Thyroid: thyroid normal Lymphatic: lymphadenopathy not noted Resp: Effort & Inspection: normal respiratory effort Auscultation: other (course breath sounds b/l++ ) Cardio: Rate: regular rate Rhythm: regular rhythm Heart sounds: no murmurs GI: Inspection: normal to inspection Auscultation: normal bowel sounds Skin:
--- NOTE | 2019-07-30 20:18 | PC.NURSE ---
This nurse notified MD Garcia that respiratory needed a sedative in order to draw ABG that the hospitalist requested moments before leaving the patient's room, due to Pt moving hands and body making it hard to obtain blood draw. MD Garcia stated Pt had been admitted and ABG could be drawn upstairs. child welfare counselor notified by this nurse of Pt needing ABG and stated the Pt had been admitted and to get him up to the ICU. This nurse called and told Ramona that ABG would need to still be drawn.
[2019-07-30] MEDS: MIDAZOLAM HCL 50 MG in DEXTROSE 5% 90 ML IV CONT (20:20)
[2019-07-30] MEDS: MIDAZOLAM HCL 2 MG/2 ML VIAL 4 MG IV PUSH (20:50)
[2019-07-30] MEDS: NOREPINEPHRINE 8 MG/D5W 250 ML 8 MG/250 ML BAG 56.3 MG IV CONT (20:55)
[2019-07-30 21:19] LABS: Alveolar/Arterial O2 Gradient 255.2 mmHg; Base Excess ABG -6.8 mEq/l (+/-2.0); Fractional Inspired Oxygen 100 %; HCO3 ABG 17.9 mEq/l (22.0-26.0); Oxygen Content ABG 15.7 %vol (16.0-22.0); Oxygen Saturation ABG 99.8 % (95.0-100.0); Oxyhemoglobin 98.5 % THb (90.0-100.0); PCO2 ABG 33.2 mmHg (35.0-45.0); PO2 ABG 424.6 mmHg (80.0-100.0); PO2 FiO2 Ratio Arterial Blood 4.25 %; Total Hemoglobin 10.5 g/dL (12.0-18.0)
[2019-07-30 21:20] LABS: Arterial Blood Gas Vent Mode CMV; Arterial Blood Gas Ventilator rate 12 /MIN; Device VENTILATOR; Modified Allen's Test Pass; Site Drawn LEFT RADIAL
[2019-07-30 21:21] LABS: Arterial Blood Gas PEEP 5 cmH2O; Arterial Blood Gas Tidal Volume 400 ml
[2019-07-30 21:39] LABS: Lactic Acid Reflex 1.7 mmol/L (0.7-2.1)
[2019-07-30] MEDS: SODIUM BICARBONATE 8.4% 50 MEQ/50 ML VIAL IV PUSH (21:43)
[2019-07-30] MEDS: SODIUM BICARBONATE 8.4% 150 MEQ in DEXTROSE 5% 1,000 ML 950 ML IV CONT (22:07)
--- NOTE | 2019-07-30 23:42 | PC.NURSE ---
At 2216 I administered norepinephrine drip without scanning the barcode after being instructed to do so per kristy Leonardo. Jorden stated he would not be sending a scannable lable and that the scanning should be bypassed for this med administration. In order to accurately chart titrations on this medication, I administered it without a barcode scan.
--- NOTE | 2019-07-30 23:45 | ADMGEN ---
This patient, Garcia Goodwin, was admitted to Intensive Care Unit-2. Patient/family unable to be oriented to hospital policies and general routines including ID bracelet, bed and alarms, visiting hours, pain management, procedures, bathroom and other care routines, personal items, smoking policy, room service/diet, and visiting hours due to sedation and intubation. Valuables list has been completed. Information on how to activate the Rapid Response Team has been discussed. Patient/Family are encouraged to report perceived risks to care and to ask questions if they do not understand what they are told or what they should do.
[2019-07-31] VITALS (26 sets, daily range): BP systolic 72–120; BP diastolic 53–80; PULSE 75–110; RESP 15–23; TEMP 36.9–38.6; O2SAT 98–100; BMI 28.1
--- NOTE | 2019-07-31 | ECHO_ITS ---
Patient Info Name: Garcia Goodwin Age: 69 years : 1950 Gender: Male Ht: 55 in Wt: 121 lbs BSA: 1.48 m2 HR: 115 bpm BP: 89 / 53 mmHg Heart Rhythm: Tachycardia Technical Quality: Fair Exam Date: 07/31/2019 9:43 AM Exam Location: [facility] Patient Status: Inpatient Admit Date: 07/30/2019 Staff Ordering Physician: Jones Her MD Dyed Yarn Operator: Micah Schmitt RDCS Attending Provider: Jolene Hooker PA-C Referring Physician: Arden DORMAN; Exam Type: CA echo doppler color flow Study Info Indications R65.21 - Severe sepsis with septic shock Complete two-dimensional, color flow and Doppler transthoracic echocardiogram is performed. History/Risk Factors Septic shock; CHF, COPD, HTN, acute respiratory failure, BKA. Summary 1. Poor echocardiographic imaging. Limited visualization of myocardium. Grossly normal ejection fraction. Wall motion assessment cannot be provided. 2. Right ventricular chamber dimension is mildly enlarged. 3. Left atrial chamber dimension is mildly enlarged. 4. There is mild aortic valve sclerosis. 5. There is mild tricuspid valve regurgitation. 6. Technically difficult study. Left Ventricle Left ventricular chamber dimension is normal. The left ventricular diastolic function is grade I diastolic dysfunction. Poor echocardiographic imaging. Limited visualization of myocardium. Grossly normal ejection fraction. Wall motion assessment cannot be provided. Right Ventricle Right ventricular chamber dimension is mildly enlarged. Right ventricular systolic function is normal. Left Atria Left atrial chamber dimension is mildly enlarged. Right Atria Right atrial chamber dimension is normal. Atrial Septum Intact interatrial septum visualized by color flow imaging. Aortic Valve The aortic valve is trileaflet. There is mild aortic valve sclerosis. There is no aortic valve stenosis. There is trace aortic valve regurgitation. Pulmonic Valve The pulmonic valve is normal. There is no pulmonic valve stenosis. There is trace pulmonic regurgitation. Mitral Valve The mitral valve has normal leaflets. There is no mitral valve stenosis. There is mild mitral valve regurgitation. Tricuspid Valve The tricuspid valve leaflets are normal. There is no significant tricuspid valve stenosis. There is mild tricuspid valve regurgitation. Other Findings Technically difficult study. Pericardium/Pleural The pericardium appears normal. There is no pericardial effusion. Inferior Vena Cava Dilated inferior vena cava with >50% collapse upon inspiration consistent with elevated right atrial pressure, 10 mmHg. Aorta The aortic root size at the sinus of Valsalva is not well visualized. Mitral Valve Name Value Normal MV Doppler MV Decel [place] 354 cm/s2 MV PHT 50 ms MV Area (PHT) 4.4 cm2 4.0-5.0 MV Diastolic Function MV E Peak Velocity 61 cm/s MV A Peak Velocity 54 cm/s MV E/A 1.1
[2019-07-31] MEDS: NOREPINEPHRINE 8 MG/D5W 250 ML 8 MG/250 ML BAG 37.5 MG IV CONT (01:56)
[2019-07-31 04:04] LABS: Alveolar/Arterial O2 Gradient 136.3 mmHg; Base Excess ABG 2.6 mEq/l (+/-2.0); Fractional Inspired Oxygen 40 %; HCO3 ABG 26.1 mEq/l (22.0-26.0); Oxygen Content ABG 13.9 %vol (16.0-22.0); Oxygen Saturation ABG 98.3 % (95.0-100.0); Oxyhemoglobin 96.4 % THb (90.0-100.0); PCO2 ABG 35.8 mmHg (35.0-45.0); PO2 ABG 107.7 mmHg (80.0-100.0); PO2 FiO2 Ratio Arterial Blood 2.69 %; Total Hemoglobin 10.1 g/dL (12.0-18.0)
[2019-07-31 04:05] LABS: Arterial Blood Gas PEEP 5 cmH2O; Arterial Blood Gas Vent Mode CMV; Arterial Blood Gas Ventilator rate 14 /MIN; Device VENTILATOR; Modified Allen's Test Pass; Site Drawn LEFT RADIAL
[2019-07-31 04:06] LABS: Arterial Blood Gas Tidal Volume 400 ml
[2019-07-31 05:13] LABS: Hematocrit 28.1 % (42.0-52.0); Hemoglobin 9.1 g/dL (14.0-18.0); Mean Corpuscular HGB Conc 32.4 g/dl (32-36); Mean Corpuscular Hemoglobin 29.3 pg (26-34); Mean Corpuscular Volume 90.4 fl (80-100); Mean Platelet Volume 10.4 fl (7.4-10.4); Platelet Count Result 299 k/mm3 (150-375); Red Blood Count 3.11 M/mm3 (4.6-6.20); Red Cell Distribution Width 15.3 % (11.5-14.5); White Blood Count 9.5 K/mm3 (4.5-10.0)
[2019-07-31 05:30] LABS: Blood Urea Nitrogen 50 mg/dL (9-20); Calcium 7.1 mg/dL (8.4-10.2); Carbon Dioxide 29 mmol/L (22-30); Chloride 103 mmol/L (98-107); Estimated Glomerular Filt Rate 50; Glucose 147 mg/dL (75-110); Potassium 3.9 mmol/L (3.4-5.0); Sodium 135 mmol/L (137-145)
[2019-07-31] MEDS: SODIUM BICARBONATE 8.4% 150 MEQ in DEXTROSE 5% 1,000 ML 950 ML IV CONT (05:31)
[2019-07-31 07:03] LABS: Band Neutrophils Percent 14 % (0-6); Lymphocytes Absolute Manual 1.52 K/mm3 (1.1-4.5); Monocytes Absolute Manual 0.57 K/mm3 (0.1-0.90); Monocytes Percent Manual 6 % (3-9); Neutrophils Absolute Manual 7.41 K/mm3 (1.3-6.7); Neutrophils Percent Manual 64 % (46-73); Total Cells Counted 100
[2019-07-31 07:04] LABS: Hypochromasia 1+ (NORMAL); Ovalocytes 1+ (NORMAL); Platelet Estimate Adequate (Adequate); Poikilocytosis 1+ (NORMAL)
[2019-07-31] MEDS: NOREPINEPHRINE 8 MG/D5W 250 ML 8 MG/250 ML BAG 46.9 MG IV CONT (07:47)
[2019-07-31] MEDS: LACTATED RINGERS 1,000 ML 100 ML IV CONT ×2 (07:47→15:44)
--- NOTE | 2019-07-31 09:11 | WPDCNINT ---
Assessment and Plan Assessment and plan (1) Septic shock: Code(s): A41.9 - Sepsis, unspecified organism; R65.21 - Severe sepsis with septic shock Status: Acute Assessment and Plan: patient presented with hypotension, found to elevated lactic acid, acute kidney injury. - Likely source of septic shock: Lungs and urine - patient was adequately fluid resuscitated, left IJ central line in place - continue Levophed and Micheal-Synephrine, is maintain mean arterial pressures greater than 65 mmHg - Continue vancomycin and Zosyn - blood in urine cultures have been obtained and pending (2) Acute respiratory failure: Qualifiers: Respiratory failure complication: unspecified whether with hypoxia or hypercapnia Qualified Code(s): J96.00 - Acute respiratory failure, unspecified whether with hypoxia or hypercapnia Code(s): J96.00 - Acute respiratory failure, unspecified whether with hypoxia or hypercapnia Status: Acute Assessment and Plan: respiratory failure likely related to pneumonia, intubated on 07/30/2019. Influenza A and B were negative in the ED - chest x-ray and ABGs reviewed - continue antibiotics as above - will start bronchodilators, Pulmozyme - continue sedation with Versed and fentanyl, daily sedation vacation, maintain RASS of 0 to -2 (3) Pneumothorax on left: Code(s): J93.9 - Pneumothorax, unspecified Status: Acute Assessment and Plan: iatrogenic pneumothorax status post left IJ line. Chest tube in place - pneumothorax resolved on repeat chest x-ray this morning (4) UTI (urinary tract infection): Qualifiers: Urinary tract infection type: site unspecified Hematuria presence: without hematuria Qualified Code(s): N39.0 - Urinary tract infection, site not specified Code(s): N39.0 - Urinary tract infection, site not specified Status: Acute Assessment and Plan: UA revealed urinary tract infection - urine cultures obtained and pending, continue antibiotics as above (5) GERD (gastroesophageal reflux disease): Qualifiers: Esophagitis presence: esophagitis presence not specified Qualified Code(s): K21.9 - Gastro-esophageal reflux disease without esophagitis Code(s): K21.9 - Gastro-esophageal reflux disease without esophagitis Status: Acute Assessment and Plan: started on Protonix (6) CHF (congestive heart failure): Qualifiers: Heart failure type: unspecified Heart failure chronicity: chronic Qualified Code(s): I50.9 - Heart failure, unspecified Code(s): I50.9 - Heart failure, unspecified Status: Chronic Assessment and Plan: history of congestive heart failure, will obtain echocardiogram to evaluate cardiac status (7) DVT prophylaxis: Code(s): Z29.9 - Encounter for prophylactic measures, unspecified Status: Acute Assessment and Plan: heparin SQ Additional Plan will discuss with family when available. Code status: Full code Critical care time spent: 43 minutes Due to a high probability of clinically significant, life threatening deterioration, the patient required my highest level of preparedness to intervene emergently and I personally spent this critical care time directly and personally managing the patient. This critical care time included obtaining a history; examining the patient; pulse oximetry; ordering and review of studies; arranging urgent treatment with development of a management plan; evaluation of patient's response to treatment; frequent reassessment; and discussions with other providers. It was exclusive of separately billable procedures and treating other patients and teaching time. Please see Assessment and Plan section and the rest of the note for further information on patient assessment and treatment Lab Coordinator Consult Note Consult date: 07/31/19 Time Seen: 06:57 Reason for consult: Septic shock, acute
--- NOTE | 2019-07-31 09:34 | PM.CNGS ---
Assessment and Plan Assessment and plan (1) Pneumothorax on left: Code(s): J93.9 - Pneumothorax, unspecified Status: Acute Assessment and Plan: Small left pneumothorax on chest x-ray status post left internal jugular central venous catheter placement. Left anterior chest tube in place and working well. Will obtain serial chest x-rays daily. Keep the chest tube to -20 cm of suction today. We will continue to monitor the chest tube while the patient is on mechanical ventilation. Thank you for allowing me to see the patient consultation and will continue to follow along with you. (2) Acute respiratory failure: Qualifiers: Respiratory failure complication: unspecified whether with hypoxia or hypercapnia Qualified Code(s): J96.00 - Acute respiratory failure, unspecified whether with hypoxia or hypercapnia Code(s): J96.00 - Acute respiratory failure, unspecified whether with hypoxia or hypercapnia Status: Acute Assessment and Plan: Currently intubated and sedated. Care per Labour Market Economist. (3) Septic shock: Code(s): A41.9 - Sepsis, unspecified organism; R65.21 - Severe sepsis with septic shock Status: Acute Assessment and Plan: Criteria met on admission with leukocytosis, lactic acidosis, tachypnea, and tachycardia. Patient has been treated with IV fluid boluses and is currently on vasopressor support. Leukocytosis and lactic acidosis resolved today. Currently on broad-spectrum IV antibiotics. Cultures pending. (4) Metabolic acidosis: Code(s): E87.2 - Acidosis Status: Acute (5) UTI (urinary tract infection): Qualifiers: Urinary tract infection type: site unspecified Hematuria presence: without hematuria Qualified Code(s): N39.0 - Urinary tract infection, site not specified Code(s): N39.0 - Urinary tract infection, site not specified Status: Acute (6) COPD (chronic obstructive pulmonary disease): Qualifiers: COPD type: unspecified COPD Qualified Code(s): J44.9 - Chronic obstructive pulmonary disease, unspecified Code(s): J44.9 - Chronic obstructive pulmonary disease, unspecified Status: Chronic (7) CHF (congestive heart failure): Qualifiers: Heart failure type: unspecified Heart failure chronicity: chronic Qualified Code(s): I50.9 - Heart failure, unspecified Code(s): I50.9 - Heart failure, unspecified Status: Chronic Additional Plan Discussed the patient's case and plan of care with Dr. Cuellar. History of Present Illness Consult details Consult date: 07/31/19 Reason for consult: chest tube (Left pneumothorax status post chest tube placement) Requesting physician: Johnie López MD Narrative: This is a 69-year-old male with a history of CHF, COPD, and hypertension, who presented to the emergency department via EMS from his wound care doctor due to hypotension. The patient was evaluated in the ER [place] [address] and lactic acid of 12.3. He became hypotensive and tachycardic in the emergency department and was fluid resuscitated, although still ultimately required vasopressor support. A left IJ central line was placed by the ED physician. The patient went into respiratory failure and required intubation as well. Chest x-ray following procedures showed a small left pneumothorax. The patient was transferred to the ICU and admitted to the hospitalist service. Labour Market Economist was consulted. Our service was consulted for the small left pneumothorax and chest tube management. The patient is now being seen in the intensive care unit. No family is at the bedside. Unable to obtain a significant history due to the patient's medical status, therefore his history is obtained from the electronic medical record. Patient is currently intubated and sedated. He is still on vasopressors. Review of Systems Review of Systems: ROS unobtainable: unobtain
[2019-07-31] MEDS: PANTOPRAZOLE SODIUM IV 40 MG VIAL IV PUSH (09:54)
[2019-07-31] MEDS: HYDROCORTISONE SODIUM SUCCINATE 100 MG/2 ML VIAL 50 MG IV PUSH ×3 (11:02→23:41)
[2019-07-31 11:14] LABS: Magnesium 2.3 mg/dL (1.6-2.3)
--- NOTE | 2019-07-31 11:21 | PM.IMPN ---
Progress Note: A&P Assessment and Plan (1) Acute respiratory failure: Qualifiers: Respiratory failure complication: unspecified whether with hypoxia or hypercapnia Qualified Code(s): J96.00 - Acute respiratory failure, unspecified whether with hypoxia or hypercapnia Code(s): J96.00 - Acute respiratory failure, unspecified whether with hypoxia or hypercapnia Status: Acute Assessment and Plan: Remains sedated ventilator. Management per money manager. Probably result of pneumonia. Continue nebulizer treatments including Pulmozyme. Continue IV Zosyn and vancomycin. (2) Septic shock: Code(s): A41.9 - Sepsis, unspecified organism; R65.21 - Severe sepsis with septic shock Status: Acute Assessment and Plan: Criteria met on admission. Blood, urine and sputum cultures pending. Remains on phenylephrine and Levophed. Blood pressure reviewed on 07/31/2019 and stable. Telemetry reviewed on 07/31/2019 with sinus rhythm. (3) Pneumothorax on left: Code(s): J93.9 - Pneumothorax, unspecified Status: Acute Assessment and Plan: Likely caused during left IJ central line placement in ER. General surgery consulted and appreciate help. Chest tube remains in place. Chest xray today with no persistent pneumothorax. Management per general surgery. (4) Pneumonia: Qualifiers: Pneumonia type: due to unspecified organism Laterality: bilateral Lung location: unspecified part of lung Qualified Code(s): J18.9 - Pneumonia, unspecified organism Code(s): J18.9 - Pneumonia, unspecified organism Status: Acute Assessment and Plan: Patchy opacities of left lung base adn bilateral mid and upper lung zones. Continue respiratory treatments and IV antibiotics as noted. (5) UTI (urinary tract infection): Qualifiers: Hematuria presence: without hematuria Urinary tract infection type: site unspecified Qualified Code(s): N39.0 - Urinary tract infection, site not specified Code(s): N39.0 - Urinary tract infection, site not specified Status: Acute Assessment and Plan: U/A suspicious. Urine culture pending. Continue IV antibiotics as noted. (6) Normocytic anemia: Code(s): D64.9 - Anemia, unspecified Status: Acute Assessment and Plan: Hemoglobin 9.1 today. Will monitor. No sign of bleeding. (7) Metabolic acidosis: Code(s): E87.2 - Acidosis Status: Acute Assessment and Plan: Secondary to septic shock and hypoperfusion. CO2 29 today. Monitor with treatment of acute issues as noted. (8) COPD (chronic obstructive pulmonary disease): Qualifiers: COPD type: unspecified COPD Qualified Code(s): J44.9 - Chronic obstructive pulmonary disease, unspecified Code(s): J44.9 - Chronic obstructive pulmonary disease, unspecified Status: Chronic Assessment and Plan: Now on ventilator as noted above. Continue respiratory treatments as noted. (9) CHF (congestive heart failure): Qualifiers: Heart failure chronicity: chronic Heart failure type: unspecified Qualified Code(s): I50.9 - Heart failure, unspecified Code(s): I50.9 - Heart failure, unspecified Status: Chronic Assessment and Plan: Echocardiogram completed with grossly normal ejection fraction, grade 1 diastolic dysfunction and mild tricuspid valve regurgitation. Home lisinopril and metoprolol on hold. (10) GERD (gastroesophageal reflux disease): Qualifiers: Esophagitis presence: esophagitis presence not specified Qualified Code(s): K21.9 - Gastro-esophageal reflux disease without esophagitis Code(s): K21.9 - Gastro-esophageal reflux disease without esophagitis Status: Acute Assessment and Plan: Continue IV Protonix. (11) DVT prophylaxis: Code(s): Z29.9 - Encounter for prophylactic measures, unspecified Status: Acute Assessment and Plan:
--- NOTE | 2019-07-31 13:04 | PCFNICU ---
ICU Rounding Note: Pt current nutrition is NPO. Nutrition recommendation: Jevity 1.5 at 25 ml/hr advance by 10 ml q 4 hours to goal rate of 45 ml/hr Last recorded weight is [f pt wt kg]kg. Bowel Motility:+BM reported 07/30/19 Labs Reviewed:Na 135,BUN 50,Cr 1.4,Glu 147,Ca 7.1 Meds Noted:Zosyn,LR 1000 ml at 100 ml/hr, Levophed Additional Notes: Patient currently on mechanical ventilator. Bilateral BKA. Wounds: Right and Left Stump-Deep Tissue ulcer, Left hip-blister. Additional protein needs would recommend Pro stat once daily with water flush, providing additional 100 kcals and 15 gms protein. Following daily in ICU rounds and every Tuesday and Tuesday.
[2019-07-31] MEDS: NOREPINEPHRINE 8 MG/D5W 250 ML 8 MG/250 ML BAG 52.5 MG IV CONT ×2 (13:05→17:08)
[2019-07-31] MEDS: HEPARIN SODIUM 5,000 UNITS/ML VIAL 5000 UNITS SUB-Q ×2 (13:47→21:07)
[2019-07-31] MEDS: IPRATROPIUM BR 0.02% INH SOLN 0.5 MG/2.5 ML VIAL INHALATION ×2 (14:56→20:19)
[2019-07-31] MEDS: LEVALBUTEROL NEB 1.25 MG/3 ML 0.63 MG INHALATION ×2 (14:57→20:19)
[2019-07-31] MEDS: MIDAZOLAM HCL 50 MG in DEXTROSE 5% 90 ML IV CONT (19:59)
[2019-07-31] MEDS: DORNASE ALFA INH SOLN 1 MG/ML 2.5 ML AMP 2.5 MG INHALATION (20:18)
[2019-07-31] MEDS: NOREPINEPHRINE 8 MG/D5W 250 ML 8 MG/250 ML BAG 18.8 MG IV CONT (23:40)
[2019-08-01] VITALS (29 sets, daily range): BP systolic 85–114; BP diastolic 54–70; PULSE 59–78; RESP 13–20; TEMP 36.8–37.1; O2SAT 97–100
[2019-08-01] MEDS: IPRATROPIUM BR 0.02% INH SOLN 0.5 MG/2.5 ML VIAL INHALATION ×4 (02:22→19:20)
[2019-08-01] MEDS: LEVALBUTEROL NEB 1.25 MG/3 ML 0.63 MG INHALATION ×4 (02:22→19:20)
[2019-08-01] MEDS: LACTATED RINGERS 1,000 ML 100 ML IV CONT ×3 (02:52→21:45)
[2019-08-01 03:12] LABS: Alveolar/Arterial O2 Gradient 82.5 mmHg; Base Excess ABG 1.7 mEq/l (+/-2.0); Carboxyhemoglobin 0.3 % THb (0-2.0); Fractional Inspired Oxygen 30 %; HCO3 ABG 25.6 mEq/l (22.0-26.0); Methemoglobin ABG 0.6 %THb (0-1.5); Oxygen Content ABG 13.8 %vol (16.0-22.0); Oxygen Saturation ABG 97.1 % (95.0-100.0); Oxyhemoglobin 94.8 % THb (90.0-100.0); PCO2 ABG 37.4 mmHg (35.0-45.0); PO2 ABG 87.5 mmHg (80.0-100.0); PO2 FiO2 Ratio Arterial Blood 2.92 %; Reduced Hemoglobin 4.3 %THb (0-5.0); Total Hemoglobin 10.3 g/dL (12.0-18.0); pH ABG 7.453 (7.350-7.450)
[2019-08-01 03:14] LABS: Arterial Blood Gas Ventilator rate 14 /MIN; Device VENTILATOR; Modified Allen's Test Pass; Site Drawn LEFT RADIAL
[2019-08-01 03:15] LABS: Arterial Blood Gas PEEP 5 cmH2O; Arterial Blood Gas Tidal Volume 400 ml; Arterial Blood Gas Vent Mode CMV
[2019-08-01 05:33] LABS: Hemoglobin 8.1 g/dL (14.0-18.0); Mean Corpuscular HGB Conc 33.8 g/dl (32-36); Mean Corpuscular Hemoglobin 29.8 pg (26-34); Mean Corpuscular Volume 88.2 fl (80-100); Mean Platelet Volume 10.1 fl (7.4-10.4); Platelet Count Result 278 k/mm3 (150-375); Red Blood Count 2.72 M/mm3 (4.6-6.20); Red Cell Distribution Width 15.2 % (11.5-14.5); White Blood Count 17.5 K/mm3 (4.5-10.0)
[2019-08-01] MEDS: HYDROCORTISONE SODIUM SUCCINATE 100 MG/2 ML VIAL 50 MG IV PUSH ×4 (05:33→22:55)
[2019-08-01] MEDS: HEPARIN SODIUM 5,000 UNITS/ML VIAL 5000 UNITS SUB-Q ×3 (05:33→19:55)
[2019-08-01 05:50] LABS: Lactic Acid 2.2 mmol/L (0.7-2.1)
[2019-08-01 06:09] LABS: Blood Urea Nitrogen 33 mg/dL (9-20); Calcium 7.3 mg/dL (8.4-10.2); Carbon Dioxide 30 mmol/L (22-30); Chloride 99 mmol/L (98-107); Estimated Glomerular Filt Rate > 60; Glucose 170 mg/dL (75-110); Magnesium 2.4 mg/dL (1.6-2.3); Phosphorus 3.4 mg/dL (2.5-4.5); Potassium 3.8 mmol/L (3.4-5.0); Sodium 132 mmol/L (137-145)
[2019-08-01] MEDS: PANTOPRAZOLE SODIUM IV 40 MG VIAL IV PUSH (07:30)
[2019-08-01] MEDS: NOREPINEPHRINE 8 MG/D5W 250 ML 8 MG/250 ML BAG 16.9 MG IV CONT (07:44)
--- NOTE | 2019-08-01 08:01 | PM.IMPN ---
Progress Note: A&P Assessment and Plan (1) Acute respiratory failure: Qualifiers: Respiratory failure complication: unspecified whether with hypoxia or hypercapnia Qualified Code(s): J96.00 - Acute respiratory failure, unspecified whether with hypoxia or hypercapnia Code(s): J96.00 - Acute respiratory failure, unspecified whether with hypoxia or hypercapnia Status: Acute Assessment and Plan: Remains sedated ventilator. Management per cold rolling coordinator. Probably result of pneumonia. Continue nebulizer treatments including Pulmozyme. Continue IV Zosyn and vancomycin. Continue nebulizer treatments. Remains on IV fluids. Continue IV steroids. (2) Septic shock: Code(s): A41.9 - Sepsis, unspecified organism; R65.21 - Severe sepsis with septic shock Status: Acute Assessment and Plan: Criteria met on admission. 1 of 2 blood cultures now positive for gram-negative bacilli. Urine culture negative. Sputum culture pending. MRSA nasal swab negative. Now on Levophed alone. Blood pressure reviewed on 08/01/2019 and low but stable. Telemetry reviewed on 08/01/2019 with sinus rhythm. WBC up to 17.5 today and will follow. (3) Pneumothorax on left: Code(s): J93.9 - Pneumothorax, unspecified Status: Acute Assessment and Plan: Likely caused during left IJ central line placement in ER. General surgery consulted and appreciate help. Imaging today with no pneumothorax but side port of chest tube in subcutaneous tissue. Discussed with surgery. Chest tube to be removed today. (4) Pneumonia: Qualifiers: Laterality: bilateral Lung location: unspecified part of lung Pneumonia type: due to unspecified organism Qualified Code(s): J18.9 - Pneumonia, unspecified organism Code(s): J18.9 - Pneumonia, unspecified organism Status: Acute Assessment and Plan: Patchy opacities of left lung base adn bilateral mid and upper lung zones. Continue respiratory treatments and IV antibiotics as noted above. (5) UTI (urinary tract infection): Qualifiers: Hematuria presence: without hematuria Urinary tract infection type: site unspecified Qualified Code(s): N39.0 - Urinary tract infection, site not specified Code(s): N39.0 - Urinary tract infection, site not specified Status: Acute Assessment and Plan: U/A suspicious on admission but urine culture negative. UTI ruled out. (6) Normocytic anemia: Code(s): D64.9 - Anemia, unspecified Status: Acute Assessment and Plan: Hemoglobin lower at 8.1 today but may be dilutional. No sign of active bleeding. Will monitor. (7) Metabolic acidosis: Code(s): E87.2 - Acidosis Status: Resolved Assessment and Plan: Secondary to septic shock and hypoperfusion. CO2 30 today. Monitor with treatment of acute issues as noted. (8) COPD (chronic obstructive pulmonary disease): Qualifiers: COPD type: unspecified COPD Qualified Code(s): J44.9 - Chronic obstructive pulmonary disease, unspecified Code(s): J44.9 - Chronic obstructive pulmonary disease, unspecified Status: Chronic Assessment and Plan: Remains on ventilator as noted above. Continue respiratory treatments as noted. (9) CHF (congestive heart failure): Qualifiers: Heart failure chronicity: chronic Heart failure type: unspecified Qualified Code(s): I50.9 - Heart failure, unspecified Code(s): I50.9 - Heart failure, unspecified Status: Chronic Assessment and Plan: Echocardiogram completed with grossly normal ejection fraction, grade 1 diastolic dysfunction and mild tricuspid valve regurgitation. Home lisinopril and metoprolol remain on hold. (10) GERD (gastroesophageal reflux disease): Qualifiers: Esophagitis presence: esophagitis presence not specified Qualified Code(s): K21.9 - Gastro-esophageal reflux disease without esophagitis
--- NOTE | 2019-08-01 08:42 | PM.PNGS ---
Progress Note: A&P Assessment and Plan (1) Pneumothorax on left: Code(s): J93.9 - Pneumothorax, unspecified Status: Acute Assessment and Plan: Chest x-ray this morning showed thoracic chest tube retraction with side port now in subcut. tissue, no evidence of pneumothorax. Discussed chest x-ray results with Dr. Cuellar and we will remove the chest tube this morning and monitor how the patient responds throughout the day. I removed the chest tube at the bedside with the nurse present this morning and applied an occlusive sterile dressing. The chest tube only appeared to be about 2 cm into the chest wall. Will order a chest x-ray now and again this afternoon. With the patient still on mechanical ventilation, there is a possibility he may require reinsertion of a chest tube if he develops a pneumothorax after removal. (2) Acute respiratory failure: Qualifiers: Respiratory failure complication: unspecified whether with hypoxia or hypercapnia Qualified Code(s): J96.00 - Acute respiratory failure, unspecified whether with hypoxia or hypercapnia Code(s): J96.00 - Acute respiratory failure, unspecified whether with hypoxia or hypercapnia Status: Acute Assessment and Plan: Currently intubated and sedated. Care per Tapper Supervisor. (3) Septic shock: Code(s): A41.9 - Sepsis, unspecified organism; R65.21 - Severe sepsis with septic shock Status: Acute (4) Metabolic acidosis: Code(s): E87.2 - Acidosis Status: Resolved (5) UTI (urinary tract infection): Qualifiers: Urinary tract infection type: site unspecified Hematuria presence: without hematuria Qualified Code(s): N39.0 - Urinary tract infection, site not specified Code(s): N39.0 - Urinary tract infection, site not specified Status: Acute (6) COPD (chronic obstructive pulmonary disease): Qualifiers: COPD type: unspecified COPD Qualified Code(s): J44.9 - Chronic obstructive pulmonary disease, unspecified Code(s): J44.9 - Chronic obstructive pulmonary disease, unspecified Status: Chronic (7) CHF (congestive heart failure): Qualifiers: Heart failure type: unspecified Heart failure chronicity: chronic Qualified Code(s): I50.9 - Heart failure, unspecified Code(s): I50.9 - Heart failure, unspecified Status: Chronic Additional Plan Discussed the patient's case and plan of care with Dr. Cuellar. Subjective Subjective Date/Time Seen: 08/01/19 07:50 Interval history: Patient still intubated and sedated. He is [facility]. Nurse is at the bedside. No acute events overnight per the nurse. Review of Systems Review of Systems: ROS unobtainable: unobtainable due to endotracheal tube Exam Const: General: other (sedated and intubated) Nutritional Appearance: thin Chest: Other: Left anterior chest tube retracted and nearly out of the chest wall. Dressing still in place clean and dry. Crepitus around insertion site on anterior chest. Resp: Auscultation: clear to auscultation bilaterally and other (Mechanically ventilated with FiO2 30% and PEEP 5) Psych: Other: DIANNA due to sedation and on ventilator. Objective Data Vital Signs Vital Signs: Vital Signs - 24 hr 07/31/19 08:50 07/31/19 10:00 07/31/19 11:49 Temperature Pulse Rate 108 H 110 H 105 H Respiratory Rate 23 H Blood Pressure 84/68 L Pulse Oximetry 98 100 100 07/31/19 12:00 07/31/19 14:00 07/31/19 14:58 Temperature 37.4 C Pulse Rate 94 83 82 Respiratory Rate 20 20 17 Blood Pressure 91/65 L 101/68 Pulse Oximetry 100 99 07/31/19 15:03 07/31/19 15:11 07/31/19 16:00 Temperature 37.2 C Pulse Rate 81 82 82 Respiratory Rate 18 18 Blood Pressure 112/72 Pulse Oximetry 98 100 07/31/19 17:37 07/31/19 18:00 07/31/19 20:00 Temperature 37.2 C Pulse Rate 88 80 76 Respiratory Rate 18 16 Blood Pressure 100/69 120/80 Pulse Oximetry 100 100 100 03
[2019-08-01] MEDS: DORNASE ALFA INH SOLN 1 MG/ML 2.5 ML AMP 2.5 MG INHALATION ×2 (09:31→19:20)
--- NOTE | 2019-08-01 10:59 | PCDIET ---
ICU Rounding Note: Patient remains NPO/intubated with decreased pressor support. Plan for chest tube placement this morning. Discussed with MD; verbal order to start tube feedings later today. Agree with previous recommendation for Vital 1.5 at goal of 45mL/hr x 22 hours/day with Pro-Stat flush 1x daily for total of 1585kcal, 83g protein and 756mL free water. MD ordered to start decreasing IV fluids as tube feeding advances. Last recorded weight is 56.9kg which is increased. Bowel Motility: BM x 2 today. Labs Reviewed: Glu (170), BUN (33), PO4 (2.4), Na (132), Hgb (8.1), Hct (24.0) Meds Noted: Fentanyl, Solu Cortef, Atrovent, Levophed, Versed, Protonix, Zosyn, Vancomycin, LR at 100mL/hr Additional Notes: Multiple LE pressure ulcers documented. Following daily in ICU rounds. Assessing/reassessing every Tuesday/Tuesday.
[2019-08-01] MEDS: LIDO 1%/EPINEPHRINE 1:100,000 20 ML VIAL INFILTRATE (11:22)
--- NOTE | 2019-08-01 11:24 | WPDINTPN ---
Progress Note: A&P Assessment and Plan (1) Septic shock: Code(s): A41.9 - Sepsis, unspecified organism; R65.21 - Severe sepsis with septic shock Status: Acute Assessment and Plan: patient presented with hypotension, found to elevated lactic acid, acute kidney injury. - Likely source of septic shock: Lungs and urine - patient was adequately fluid resuscitated, left IJ central line in place - continue Levophed, maintain mean arterial pressures greater than 65 mmHg - OFF Micheal-Synephrine, - Continue vancomycin and Zosyn - blood culture: Gram-negative bacilli 1 of 2 bottles. - Urine culture: No growth - sputum cultures growing many Gram-positive cocci (2) Acute respiratory failure: Qualifiers: Respiratory failure complication: unspecified whether with hypoxia or hypercapnia Qualified Code(s): J96.00 - Acute respiratory failure, unspecified whether with hypoxia or hypercapnia Code(s): J96.00 - Acute respiratory failure, unspecified whether with hypoxia or hypercapnia Status: Acute Assessment and Plan: respiratory failure likely related to pneumonia, intubated on 07/30/2019. Influenza A and B were negative in the ED - chest x-ray and ABGs reviewed - continue antibiotics as above - continue bronchodilators, Pulmozyme - continue sedation with Versed and fentanyl, daily sedation vacation, maintain RASS of 0 to -2 (3) Pneumothorax on left: Code(s): J93.9 - Pneumothorax, unspecified Status: Acute Assessment and Plan: iatrogenic pneumothorax status post left IJ line. Chest tube in place - chest x-ray this morning showed chest tube retracted with side port in the subcutaneous tissue, no evidence of pneumothorax. chest tube was pulled out by surgery this morning, repeat chest x-ray showed redevelopment of pneumothorax, surgeon reinserted chest tube with resolution of the pneumothorax on repeat chest x-ray (4) UTI (urinary tract infection): Qualifiers: Urinary tract infection type: site unspecified Hematuria presence: without hematuria Qualified Code(s): N39.0 - Urinary tract infection, site not specified Code(s): N39.0 - Urinary tract infection, site not specified Status: Acute Assessment and Plan: UA revealed urinary tract infection - urine culture negative so far, continue antibiotics as above (5) GERD (gastroesophageal reflux disease): Qualifiers: Esophagitis presence: esophagitis presence not specified Qualified Code(s): K21.9 - Gastro-esophageal reflux disease without esophagitis Code(s): K21.9 - Gastro-esophageal reflux disease without esophagitis Status: Acute Assessment and Plan: continue Protonix (6) CHF (congestive heart failure): Qualifiers: Heart failure type: unspecified Heart failure chronicity: chronic Qualified Code(s): I50.9 - Heart failure, unspecified Code(s): I50.9 - Heart failure, unspecified Status: Chronic Assessment and Plan: history of congestive heart failure, will obtain echocardiogram to evaluate cardiac status - will decrease IV fluids (7) DVT prophylaxis: Code(s): Z29.9 - Encounter for prophylactic measures, unspecified Status: Acute Assessment and Plan: heparin SQ (8) Dietary surveillance and counseling: Code(s): Z71.3 - Dietary counseling and surveillance Status: Acute Assessment and Plan: will start tube feeds today Additional Plan will discuss with family when available. Code status: Full code Critical care time spent: 34 minutes Due to a high probability of clinically significant, life threatening deterioration, the patient required my highest level of preparedness to intervene emergently and I personally spent this critical care time directly and personally managing the patient. This critical care time included obtaining a history; examining the patient; pu
--- NOTE | 2019-08-01 11:33 | P.OP_ITS ---
Procedure Note - Detailed Date of procedure: 08/01/19 Pre-op diagnosis: Left pneumothorax Left pneumothorax Post-op diagnosis: same Procedure performed: Placement left chest tube Description of procedure: The patient was in the intensive care unit. He was intubated and sedated. The dressings to the previous chest tube were removed. Prep and drape of the left anterior chest wall were carried out. The anticipated site of the chest tube had been marked on the skin. This was in the mid clavicular line above the nipple. Local was infiltrated using 0.5% Marcaine with epinephrine. Incision was made and I tunneled down to the rib just above. This was probably the 6th rib. Dissecting just over the 6th rib, I did enter the chest cavity. A matta of air was heard. I dilated this tract. A 28 Romanian trocar chest tube was then passed through the tract in into the left chest. The tip was directed apically. The trocar was removed. The chest tube was sutured securely to the skin with 0 silk. 4 x 4 gauze and occlusive tape dressing was placed. The chest tube was attached to 20 cm water Pleur-evac suction. The previous chest tube site was closed with 0 silk suture prior to placing the dressing. The patient tolerated the procedure well. Anesthesia: local (0.5% Marcaine with epinephrine) Surgeon: Eduardo Cuellar MD Senior Policy Associate: Lanny Mojica [employer] Estimated blood loss (mL): 2 Drains: Yes (Chest tube) Packing: No Pathology: none sent Complications: None Condition: critical Disposition: ICU Findings: Postprocedure chest x-ray shows chest tube in good position with left lung fully re-expanded.
[2019-08-01] MEDS: MIDAZOLAM HCL 50 MG in DEXTROSE 5% 90 ML IV CONT (20:11)
[2019-08-02] VITALS (32 sets, daily range): BP systolic 89–118; BP diastolic 54–70; PULSE 62–83; RESP 11–18; TEMP 36.4–36.9; O2SAT 94–100
[2019-08-02] MEDS: IPRATROPIUM BR 0.02% INH SOLN 0.5 MG/2.5 ML VIAL INHALATION ×4 (01:40→20:57)
[2019-08-02] MEDS: LEVALBUTEROL NEB 1.25 MG/3 ML 0.63 MG INHALATION ×4 (01:40→20:57)
[2019-08-02] MEDS: HYDROCORTISONE SODIUM SUCCINATE 100 MG/2 ML VIAL 50 MG IV PUSH ×3 (04:26→17:53)
[2019-08-02] MEDS: HEPARIN SODIUM 5,000 UNITS/ML VIAL 5000 UNITS SUB-Q ×3 (04:26→20:08)
[2019-08-02 04:31] LABS: Carboxyhemoglobin 0.2 % THb (0-2.0); Fractional Inspired Oxygen 30 %; HCO3 ABG 30.6 mEq/l (22.0-26.0); Oxygen Content ABG 4.6 %vol (16.0-22.0); Oxygen Saturation ABG 96.7 % (95.0-100.0); Oxyhemoglobin 93.9 % THb (90.0-100.0); PCO2 ABG 37.7 mmHg (35.0-45.0); PO2 ABG 77.6 mmHg (80.0-100.0); PO2 FiO2 Ratio Arterial Blood 2.59 %; Reduced Hemoglobin 4.9 %THb (0-5.0)
[2019-08-02 04:32] LABS: pH ABG 7.527 (7.350-7.450)
[2019-08-02 04:33] LABS: Arterial Blood Gas PEEP 5 cmH2O; Arterial Blood Gas Vent Mode CMV; Arterial Blood Gas Ventilator rate 14 /MIN; Device VENTILATOR; Modified Allen's Test Pass; Site Drawn LEFT RADIAL; Total Hemoglobin 3.3 g/dL (12.0-18.0)
[2019-08-02 04:34] LABS: Arterial Blood Gas Tidal Volume 400 ml
[2019-08-02 04:39] LABS: Mean Corpuscular HGB Conc 32.9 g/dl (32-36); Mean Corpuscular Hemoglobin 29.2 pg (26-34); Platelet Count Result 262 k/mm3 (150-375); Red Blood Count 2.36 M/mm3 (4.6-6.20); Red Cell Distribution Width 15.4 % (11.5-14.5); White Blood Count 15.7 K/mm3 (4.5-10.0)
[2019-08-02 04:58] LABS: Blood Urea Nitrogen 28 mg/dL (9-20); Calcium 7.4 mg/dL (8.4-10.2); Carbon Dioxide 31 mmol/L (22-30); Chloride 101 mmol/L (98-107); Estimated Glomerular Filt Rate > 60; Glucose 143 mg/dL (75-110); Magnesium 2.5 mg/dL (1.6-2.3); Phosphorus 2.6 mg/dL (2.5-4.5); Potassium 3.5 mmol/L (3.4-5.0); Sodium 132 mmol/L (137-145)
[2019-08-02 05:14] LABS: Hemoglobin 6.9 g/dL (14.0-18.0)
--- NOTE | 2019-08-02 07:29 | PM.IMPN ---
Progress Note: A&P Assessment and Plan (1) Acute respiratory failure: Qualifiers: Respiratory failure complication: unspecified whether with hypoxia or hypercapnia Qualified Code(s): J96.00 - Acute respiratory failure, unspecified whether with hypoxia or hypercapnia Code(s): J96.00 - Acute respiratory failure, unspecified whether with hypoxia or hypercapnia Status: Acute Assessment and Plan: Remains sedated on ventilator. Management per municipal bond trader. Probably result of pneumonia. Will continue nebulizer treatments including Pulmozyme. Continue IV Zosyn and vancomycin. Continue IV fluids. Will continue to monitor. (2) Septic shock: Code(s): A41.9 - Sepsis, unspecified organism; R65.21 - Severe sepsis with septic shock Status: Acute Assessment and Plan: Criteria met on admission. 1 of 2 blood cultures now positive for gram-negative bacilli. Urine culture negative. Sputum culture now with yeast. MRSA nasal swab negative. Remains on Levophed alone now. Blood pressure reviewed on 08/02/2019 and low normal but stable. Telemetry reviewed on 08/02/2019 with sinus rhythm. WBC down to 15.7 today and will follow. (3) Pneumothorax on left: Code(s): J93.9 - Pneumothorax, unspecified Status: Acute Assessment and Plan: Likely caused during left IJ central line placement in ER. General surgery consulted and appreciate help. Chest tube replaced by Dr. Cuellar on 08/01/2019 due to redevelopment of pneumothorax after migration of original chest tube. Tube in place with no pneumothorax on imaging today. Management per surgery. (4) Pneumonia: Qualifiers: Laterality: bilateral Lung location: unspecified part of lung Pneumonia type: due to unspecified organism Qualified Code(s): J18.9 - Pneumonia, unspecified organism Code(s): J18.9 - Pneumonia, unspecified organism Status: Acute Assessment and Plan: Patchy opacities of left lung base and bilateral mid and upper lung zones. Continue respiratory treatments and IV antibiotics as noted above. Sputum culture as noted above. (5) Normocytic anemia: Code(s): D64.9 - Anemia, unspecified Status: Acute Assessment and Plan: Acute on chronic with hemoglobin down to 6.9 today. Transfused 1 unit PRBC. Continue to monitor. Transfuse as needed. (6) UTI (urinary tract infection): Qualifiers: Hematuria presence: without hematuria Urinary tract infection type: site unspecified Qualified Code(s): N39.0 - Urinary tract infection, site not specified Code(s): N39.0 - Urinary tract infection, site not specified Status: Acute Assessment and Plan: U/A suspicious on admission but urine culture negative. UTI ruled out. (7) Metabolic acidosis: Code(s): E87.2 - Acidosis Status: Resolved Assessment and Plan: Secondary to septic shock and hypoperfusion. CO2 31 today. Monitor with treatment of acute issues as noted. (8) COPD (chronic obstructive pulmonary disease): Qualifiers: COPD type: unspecified COPD Qualified Code(s): J44.9 - Chronic obstructive pulmonary disease, unspecified Code(s): J44.9 - Chronic obstructive pulmonary disease, unspecified Status: Chronic Assessment and Plan: Remains on ventilator as noted above. Continue respiratory treatments as noted. (9) CHF (congestive heart failure): Qualifiers: Heart failure chronicity: chronic Heart failure type: unspecified Qualified Code(s): I50.9 - Heart failure, unspecified Code(s): I50.9 - Heart failure, unspecified Status: Chronic Assessment and Plan: Echocardiogram completed with grossly normal ejection fraction, grade 1 diastolic dysfunction and mild tricuspid valve regurgitation. Home lisinopril and metoprolol remain on hold. Will monitor with IV fluids in place. (10) GERD (gastroesophageal reflux disease): Qualif
--- NOTE | 2019-08-02 07:45 | PM.PNGS ---
Progress Note: A&P Assessment and Plan (1) Pneumothorax on left: Code(s): J93.9 - Pneumothorax, unspecified Status: Acute Assessment and Plan: chest tube in good position. Lung fully inflated. Will place chest tube to water seal and repeat chest x-ray today. Plan to leave chest tube in place several days unless patient is able to be extubated. (2) Acute respiratory failure: Qualifiers: Respiratory failure complication: unspecified whether with hypoxia or hypercapnia Qualified Code(s): J96.00 - Acute respiratory failure, unspecified whether with hypoxia or hypercapnia Code(s): J96.00 - Acute respiratory failure, unspecified whether with hypoxia or hypercapnia Status: Acute Assessment and Plan: Remains on ventilator with patient unlikely to extubate today. (3) Septic shock: Code(s): A41.9 - Sepsis, unspecified organism; R65.21 - Severe sepsis with septic shock Status: Acute Assessment and Plan: Weaning vasopressor agents but still in septic shock. Subjective Subjective Date/Time Seen: 08/02/19 07:45 Remains intubated on ventilator. Review of Systems Review of Systems: ROS unobtainable: unobtainable due to endotracheal tube Exam Resp: Effort & Inspection: other ( chest tube in good position, dressing dry and intact.) Auscultation: rhonchi ( Breath sounds noted throughout) Objective Data Vital Signs Vital Signs: Vital Signs - 24 hr 08/01/19 07:47 08/01/19 08:00 08/01/19 09:32 Temperature 36.8 C Pulse Rate 69 65 66 Respiratory Rate 16 14 Blood Pressure 106/64 Pulse Oximetry 99 08/01/19 09:41 08/01/19 09:42 08/01/19 10:00 Temperature Pulse Rate 62 61 65 Respiratory Rate 14 20 Blood Pressure 93/64 L Pulse Oximetry 100 99 08/01/19 11:05 08/01/19 12:00 08/01/19 14:00 Temperature 37.1 C Pulse Rate 66 63 62 Respiratory Rate 18 14 Blood Pressure 99/60 L 96/60 L Pulse Oximetry 99 98 98 08/01/19 14:55 08/01/19 15:42 08/01/19 15:49 Temperature Pulse Rate 59 L 60 62 Respiratory Rate 16 16 Blood Pressure Pulse Oximetry 100 08/01/19 16:00 08/01/19 18:00 08/01/19 18:01 Temperature 36.9 C Pulse Rate 65 69 71 Respiratory Rate 14 14 Blood Pressure 91/56 L 85/54 L Pulse Oximetry 99 99 98 08/01/19 19:20 08/01/19 19:32 08/01/19 20:00 Temperature 36.8 C Pulse Rate 69 67 70 Respiratory Rate 16 16 14 Blood Pressure 92/60 L Pulse Oximetry 100 08/01/19 20:18 08/01/19 22:00 08/01/19 22:50 Temperature Pulse Rate 71 65 78 Respiratory Rate 18 Blood Pressure 99/59 L Pulse Oximetry 98 97 99 08/02/19 00:00 08/02/19 01:40 08/02/19 01:50 Temperature 36.9 C Pulse Rate 83 78 78 Respiratory Rate 18 16 16 Blood Pressure 118/70 Pulse Oximetry 96 99 08/02/19 02:00 08/02/19 04:00 08/02/19 05:00 Temperature 36.8 C Pulse Rate 74 66 77 Respiratory Rate 18 16 Blood Pressure 101/60 99/58 L Pulse Oximetry 97 96 99 08/02/19 06:00 Temperature Pulse Rate 64 Respiratory Rate 18 Blood Pressure 92/55 L Pulse Oximetry 97 Intake/Output Intake/Output: Intake & Output 07/30/19 07/31/19 08/01/19 08/02/19 23:59 23:59 23:59 23:59 Intake Total 2350 4985.0 3962 662 Output Total 1710 1250 530 Balance 2350 3275.0 2712 132 Meds/Results Medications: Active Medications Generic Name Dose Route Start Last Admin Trade Name Freq PRN Reason Stop Dose Admin Dornase Erick 2.5 mg 07/31/19 10:00 08/01/19 21:46 Pulmozyme INHALATION Not Given Q12HRT AMY Fentanyl Citrate 50 mcg 07/30/19 18:19 Sublimaze IV PUSH Q2H PRN Pain Rated 7-10 Heparin Sodium (Porcine) 5,000 units 07/31/19 14:00 08/02/19 04:26 Heparin Sodium SUB-Q 5,000 units Q8HR AMY Administration Hydrocortisone Sodium Succinate 50 mg 07/31/19 12:00 08/02/19 04:26 Solu-Cortef IV PUSH 50 mg Q6HR AMY Administration Piperacillin Sod/Tazobactam Sod 2.25 gm in
[2019-08-02] MEDS: DORNASE ALFA INH SOLN 1 MG/ML 2.5 ML AMP 2.5 MG INHALATION ×2 (08:00→20:56)
[2019-08-02] MEDS: SODIUM CHLORIDE 0.9% IV 250 ML 30 ML IV CONT (08:11)
[2019-08-02] MEDS: PANTOPRAZOLE SODIUM IV 40 MG VIAL IV PUSH (08:13)
--- NOTE | 2019-08-02 10:53 | PCDIET ---
ICU Rounding Note: Patient tolerating Vital 1.5 at 45mL/hr goal rate with Pro-Stat 1x daily. Last recorded weight is 56.9kg which is stable. Bowel Motility: BM x 4 this date. Labs Reviewed: Glu (143), BUN (28), Na (132), Ca (7.4), Hgb (6.9), Hct (21.0) Meds Noted: Fentanyl, Solu Cortef, Atrovent, Levophed, Versed, Zosyn, Vancomycin, Protonix Additional Notes: Chest tube to water seal. No change in multiple wounds reported. Recommend checking albumin level for calcium correction and replacing calcium, if indicated. Recommend continuing present tube feeding/Pro-Stat flush. Following daily in ICU rounds. Assessing/reassessing every Tuesday/Tuesday.
--- NOTE | 2019-08-02 12:10 | WPDINTPN ---
Progress Note: A&P Assessment and Plan (1) Septic shock: Code(s): A41.9 - Sepsis, unspecified organism; R65.21 - Severe sepsis with septic shock Status: Acute Assessment and Plan: patient presented with hypotension, found to elevated lactic acid, acute kidney injury. - Likely source of septic shock: Lungs and urine - patient was adequately fluid resuscitated, left IJ central line in place - continue Levophed, maintain mean arterial pressures greater than 65 mmHg - OFF Micheal-Synephrine, - Continue vancomycin and Zosyn - blood culture: Gram-negative bacilli 1 of 2 bottles. - Urine culture: No growth - sputum cultures growing many Gram-positive cocci (2) Acute respiratory failure: Qualifiers: Respiratory failure complication: unspecified whether with hypoxia or hypercapnia Qualified Code(s): J96.00 - Acute respiratory failure, unspecified whether with hypoxia or hypercapnia Code(s): J96.00 - Acute respiratory failure, unspecified whether with hypoxia or hypercapnia Status: Acute Assessment and Plan: respiratory failure likely related to pneumonia, intubated on 07/30/2019. Influenza A and B were negative in the ED - chest x-ray and ABGs reviewed - continue antibiotics as above - continue bronchodilators, Pulmozyme - Wean sedation and will place patient of ASV mode (3) Pneumothorax on left: Code(s): J93.9 - Pneumothorax, unspecified Status: Acute Assessment and Plan: iatrogenic pneumothorax status post left IJ line. Chest tube in place - chest x-ray this morning showed chest tube retracted with side port in the subcutaneous tissue, no evidence of pneumothorax. 07/31: chest tube was pulled out by surgery this morning, repeat chest x-ray showed redevelopment of pneumothorax, surgeon reinserted chest tube with resolution of the pneumothorax on repeat chest x-ray - surgery managing the chest tube, - Chest tube to water seal (4) UTI (urinary tract infection): Qualifiers: Urinary tract infection type: site unspecified Hematuria presence: without hematuria Qualified Code(s): N39.0 - Urinary tract infection, site not specified Code(s): N39.0 - Urinary tract infection, site not specified Status: Acute Assessment and Plan: UA revealed urinary tract infection - urine culture negative so far, continue antibiotics as above (5) GERD (gastroesophageal reflux disease): Qualifiers: Esophagitis presence: esophagitis presence not specified Qualified Code(s): K21.9 - Gastro-esophageal reflux disease without esophagitis Code(s): K21.9 - Gastro-esophageal reflux disease without esophagitis Status: Acute Assessment and Plan: continue Protonix (6) CHF (congestive heart failure): Qualifiers: Heart failure type: unspecified Heart failure chronicity: chronic Qualified Code(s): I50.9 - Heart failure, unspecified Code(s): I50.9 - Heart failure, unspecified Status: Chronic Assessment and Plan: history of congestive heart failure, will obtain echocardiogram to evaluate cardiac status - will decrease IV fluids (7) DVT prophylaxis: Code(s): Z29.9 - Encounter for prophylactic measures, unspecified Status: Acute Assessment and Plan: heparin SQ (8) Dietary surveillance and counseling: Code(s): Z71.3 - Dietary counseling and surveillance Status: Acute Assessment and Plan: tolerating tube feeds (9) Normocytic anemia: Code(s): D64.9 - Anemia, unspecified Status: Acute Assessment and Plan: transfuse PRBc recheck H/H post transfusion Additional Plan will discuss with family when available. Code status: Full code Critical care time spent: 32 minutes Due to a high probability of clinically significant, life threatening deterioration, the patient required my highest level of preparedness to intervene
[2019-08-02] MEDS: LACTATED RINGERS 1,000 ML 50 ML IV CONT (20:26)
[2019-08-02] MEDS: MIDAZOLAM HCL 50 MG in DEXTROSE 5% 90 ML IV CONT (21:11)
[2019-08-03] VITALS (23 sets, daily range): BP systolic 87–104; BP diastolic 52–69; PULSE 54–93; RESP 10–22; TEMP 36.6–36.9; O2SAT 94–100
[2019-08-03] MEDS: HYDROCORTISONE SODIUM SUCCINATE 100 MG/2 ML VIAL 50 MG IV PUSH ×4 (00:17→21:59)
[2019-08-03] MEDS: LEVALBUTEROL NEB 1.25 MG/3 ML 0.63 MG INHALATION ×4 (01:51→20:11)
[2019-08-03] MEDS: IPRATROPIUM BR 0.02% INH SOLN 0.5 MG/2.5 ML VIAL INHALATION ×4 (01:51→20:11)
[2019-08-03 04:24] LABS: Hematocrit 24.9 % (42.0-52.0); Hemoglobin 8.2 g/dL (14.0-18.0); Mean Corpuscular HGB Conc 32.9 g/dl (32-36); Mean Corpuscular Hemoglobin 29.1 pg (26-34); Mean Corpuscular Volume 88.3 fl (80-100); Platelet Count Result 278 k/mm3 (150-375); Red Blood Count 2.82 M/mm3 (4.6-6.20); Red Cell Distribution Width 15.7 % (11.5-14.5); White Blood Count 14.9 K/mm3 (4.5-10.0)
[2019-08-03 04:36] LABS: Blood Urea Nitrogen 27 mg/dL (9-20); Calcium 7.5 mg/dL (8.4-10.2); Carbon Dioxide 29 mmol/L (22-30); Chloride 102 mmol/L (98-107); Estimated Glomerular Filt Rate > 60; Glucose 147 mg/dL (75-110); Magnesium 2.5 mg/dL (1.6-2.3); Phosphorus 1.7 mg/dL (2.5-4.5); Potassium 3.8 mmol/L (3.4-5.0); Sodium 133 mmol/L (137-145)
[2019-08-03 04:38] LABS: Lactic Acid 2.1 mmol/L (0.7-2.1)
[2019-08-03 04:43] LABS: Alveolar/Arterial O2 Gradient 89.3 mmHg; Base Excess ABG 5.8 mEq/l (+/-2.0); Carboxyhemoglobin 0.3 % THb (0-2.0); Fractional Inspired Oxygen 30 %; HCO3 ABG 29.2 mEq/l (22.0-26.0); Methemoglobin ABG 0.6 %THb (0-1.5); Oxygen Content ABG 14.5 %vol (16.0-22.0); Oxygen Saturation ABG 96.8 % (95.0-100.0); Oxyhemoglobin 94.7 % THb (90.0-100.0); PCO2 ABG 37.7 mmHg (35.0-45.0); PO2 ABG 80.3 mmHg (80.0-100.0); PO2 FiO2 Ratio Arterial Blood 2.68 %; Reduced Hemoglobin 4.4 %THb (0-5.0); Site Drawn LEFT RADIAL; Total Hemoglobin 10.8 g/dL (12.0-18.0); pH ABG 7.507 (7.350-7.450)
[2019-08-03 04:44] LABS: Arterial Blood Gas PEEP 5 cmH2O; Arterial Blood Gas Vent Mode ASV; Device VENTILATOR; Modified Allen's Test Pass
[2019-08-03 05:01] LABS: Vancomycin Trough 5.6 ug/mL (10.0-20.0)
[2019-08-03] MEDS: HEPARIN SODIUM 5,000 UNITS/ML VIAL 5000 UNITS SUB-Q ×3 (05:13→21:59)
[2019-08-03] MEDS: DORNASE ALFA INH SOLN 1 MG/ML 2.5 ML AMP 2.5 MG INHALATION ×2 (07:42→20:11)
[2019-08-03] MEDS: FUROSEMIDE INJ 40 MG/4 ML VIAL 20 MG IV PUSH (08:10)
[2019-08-03] MEDS: PANTOPRAZOLE SODIUM IV 40 MG VIAL IV PUSH (08:11)
--- NOTE | 2019-08-03 08:56 | PM.IMPN ---
Progress Note: A&P Assessment and Plan (1) Acute respiratory failure: Qualifiers: Respiratory failure complication: unspecified whether with hypoxia or hypercapnia Qualified Code(s): J96.00 - Acute respiratory failure, unspecified whether with hypoxia or hypercapnia Code(s): J96.00 - Acute respiratory failure, unspecified whether with hypoxia or hypercapnia Status: Acute Assessment and Plan: Remains sedated on ventilator. Management per jailkeeper with possible attempt at weaning today. Now on Precedex. Probably result of pneumonia. Will continue nebulizer treatments including Pulmozyme. Continue IV Zosyn and vancomycin. Continue IV fluids. Will continue to monitor. (2) Septic shock: Code(s): A41.9 - Sepsis, unspecified organism; R65.21 - Severe sepsis with septic shock Status: Acute Assessment and Plan: Criteria met on admission. 1 of 2 blood cultures now positive for gram-negative bacilli with final results still pending. Urine culture negative. Sputum culture now with yeast. MRSA nasal swab negative. Now off Levophed. Blood pressure reviewed on 08/03/2019 and remains low normal but stable. Telemetry reviewed on 08/03/2019 with sinus rhythm. WBC 14.9 today. Will continue to monitor. (3) Pneumothorax on left: Code(s): J93.9 - Pneumothorax, unspecified Status: Acute Assessment and Plan: Likely caused during left IJ central line placement in ER. General surgery consulted and appreciate help. Chest tube replaced by Dr. Cuellar on 08/01/2019 due to redevelopment of pneumothorax after migration of original chest tube. Chest x-ray today with stable airspace disease and chest tube in place. Per surgery, plan to leave chest tube in place for a few days. Management per surgery. (4) Pneumonia: Qualifiers: Laterality: bilateral Lung location: unspecified part of lung Pneumonia type: due to unspecified organism Qualified Code(s): J18.9 - Pneumonia, unspecified organism Code(s): J18.9 - Pneumonia, unspecified organism Status: Acute Assessment and Plan: Patchy opacities of left lung base and bilateral mid and upper lung zones. Continue respiratory treatments and IV antibiotics as noted above. Sputum culture as noted above. (5) Hypophosphatemia: Code(s): E83.39 - Other disorders of phosphorus metabolism Status: Acute Assessment and Plan: Phosphorus low at 1.7 today. IV K-Phos ordered. Continue to monitor. (6) Normocytic anemia: Code(s): D64.9 - Anemia, unspecified Status: Acute Assessment and Plan: Acute on chronic with hemoglobin down to 6.9 on 08/02/2019 with transfusion of 1 unit PRBC. Hemoglobin up to 8.2 today. Will continue to monitor. Transfuse as needed. (7) Metabolic acidosis: Code(s): E87.2 - Acidosis Status: Resolved Assessment and Plan: Secondary to septic shock and hypoperfusion. CO2 29 today. Monitor with treatment of acute issues as noted. (8) COPD (chronic obstructive pulmonary disease): Qualifiers: COPD type: unspecified COPD Qualified Code(s): J44.9 - Chronic obstructive pulmonary disease, unspecified Code(s): J44.9 - Chronic obstructive pulmonary disease, unspecified Status: Chronic Assessment and Plan: Remains on ventilator as noted above. Continue respiratory treatments as noted. (9) CHF (congestive heart failure): Qualifiers: Heart failure chronicity: chronic Heart failure type: unspecified Qualified Code(s): I50.9 - Heart failure, unspecified Code(s): I50.9 - Heart failure, unspecified Status: Chronic Assessment and Plan: Echocardiogram completed with grossly normal ejection fraction, grade 1 diastolic dysfunction and mild tricuspid valve regurgitation. Home lisinopril and metoprolol remain on hold. Will continue to monitor. (10) GERD (gastroesophageal reflux disease):
[2019-08-03] MEDS: POTASSIUM PHOS,M-BASIC-D-BASIC 20 MMOL in SODIUM CHLORIDE 0.9% IV 250 ML 62.5 MMOL IVPB (09:15)
--- NOTE | 2019-08-03 10:41 | WPDINTPN ---
Progress Note: A&P Assessment and Plan (1) Septic shock: Code(s): A41.9 - Sepsis, unspecified organism; R65.21 - Severe sepsis with septic shock Status: Acute Assessment and Plan: patient presented with hypotension, found to elevated lactic acid, acute kidney injury. - Likely source of septic shock: Lungs and urine - left IJ central line in place - OFF Levophed, - Continue vancomycin and Zosyn - blood culture: Gram-negative bacilli 1 of 2 bottles. - Urine culture: No growth - sputum cultures: normal oropharyngeal radha, yeast isolated (2) Acute respiratory failure: Qualifiers: Respiratory failure complication: unspecified whether with hypoxia or hypercapnia Qualified Code(s): J96.00 - Acute respiratory failure, unspecified whether with hypoxia or hypercapnia Code(s): J96.00 - Acute respiratory failure, unspecified whether with hypoxia or hypercapnia Status: Acute Assessment and Plan: respiratory failure likely related to pneumonia, intubated on 07/30/2019. Influenza A and B were negative in the ED - chest x-ray and ABGs reviewed - continue antibiotics as above - continue bronchodilators, Pulmozyme - patient on ASV mode of ventilation - will start precedex and turn of fentanyl and versed - Will place pt on SBT once more awake - will diurese pt (3) Pneumothorax on left: Code(s): J93.9 - Pneumothorax, unspecified Status: Acute Assessment and Plan: iatrogenic pneumothorax status post left IJ line. Chest tube in place - chest x-ray this morning showed chest tube retracted with side port in the subcutaneous tissue, no evidence of pneumothorax. 07/31: chest tube was pulled out by surgery this morning, repeat chest x-ray showed redevelopment of pneumothorax, surgeon reinserted chest tube with resolution of the pneumothorax on repeat chest x-ray - surgery managing the chest tube, - Chest tube to water seal (4) UTI (urinary tract infection): Qualifiers: Urinary tract infection type: site unspecified Hematuria presence: without hematuria Qualified Code(s): N39.0 - Urinary tract infection, site not specified Code(s): N39.0 - Urinary tract infection, site not specified Status: Ruled-out Assessment and Plan: UA revealed urinary tract infection - urine culture negative so far, continue antibiotics as above (5) GERD (gastroesophageal reflux disease): Qualifiers: Esophagitis presence: esophagitis presence not specified Qualified Code(s): K21.9 - Gastro-esophageal reflux disease without esophagitis Code(s): K21.9 - Gastro-esophageal reflux disease without esophagitis Status: Acute Assessment and Plan: continue Protonix (6) CHF (congestive heart failure): Qualifiers: Heart failure type: unspecified Heart failure chronicity: chronic Qualified Code(s): I50.9 - Heart failure, unspecified Code(s): I50.9 - Heart failure, unspecified Status: Chronic Assessment and Plan: history of congestive heart failure, will obtain echocardiogram to evaluate cardiac status - Will diashlye (7) DVT prophylaxis: Code(s): Z29.9 - Encounter for prophylactic measures, unspecified Status: Acute Assessment and Plan: heparin SQ (8) Dietary surveillance and counseling: Code(s): Z71.3 - Dietary counseling and surveillance Status: Acute Assessment and Plan: tolerating tube feeds (9) Normocytic anemia: Code(s): D64.9 - Anemia, unspecified Status: Acute Assessment and Plan: transfuse PRBc hb stable Additional Plan will discuss with family when available. Code status: Full code Critical care time spent: 32 minutes Due to a high probability of clinically significant, life threatening deterioration, the patient required my highest level of preparedness to intervene emergently and I personally spent th
--- NOTE | 2019-08-03 11:08 | PCDIET ---
Nutrition Follow-Up Complete: Nutrition Diagnosis: Inadequate protein intake as related to wound healing as evidenced by deep tissue pressure ulcer. Nutrition Goal: Patient to meet estimated energy needs Goal met; however, tube feedings currently held for spontaneous breathing trial. Expect feedings to resume if unable to extubate (Vital 1.5 at 45mL/hr with Pro-Stat flush daily). Last recorded weight is 56.9 kg which is stable. Bowel Motility: BM x 2 today. Labs Reviewed: Glu (147), PO4 (1.7), Na (133), Ca (7.5), Hgb (8.2), Hct (24.9) Meds Noted: Precedex, Atrovent, Levophed, Solu Cortef, Protonix, Zosyn, K-Phos, Vancomycin, s/p Lasix Additional Notes: Multiple skin issues reported. Recommend checking albumin level for correction and replacing calcium, if appropriate. Will continue to monitor with same goal. Nutrition Monitoring and Evaluation: Follow up every Tuesday and Tuesday. Follow daily in ICU rounds.
[2019-08-03 13:28] LABS: Alveolar/Arterial O2 Gradient 84.7 mmHg; Base Excess ABG 6.4 mEq/l (+/-2.0); Carboxyhemoglobin 0.3 % THb (0-2.0); Fractional Inspired Oxygen 30 %; HCO3 ABG 29.5 mEq/l (22.0-26.0); Methemoglobin ABG 0.3 %THb (0-1.5); Oxygen Content ABG 15.9 %vol (16.0-22.0); Oxygen Saturation ABG 97.3 % (95.0-100.0); Oxyhemoglobin 95.9 % THb (90.0-100.0); PCO2 ABG 36.9 mmHg (35.0-45.0); PO2 ABG 85.8 mmHg (80.0-100.0); PO2 FiO2 Ratio Arterial Blood 2.86 %; Reduced Hemoglobin 3.5 %THb (0-5.0); Total Hemoglobin 11.7 g/dL (12.0-18.0)
[2019-08-03 13:29] LABS: Device VENTILATOR; Modified Allen's Test Pass; Site Drawn RIGHT RADIAL; pH ABG 7.521 (7.350-7.450)
[2019-08-03 13:30] LABS: Arterial Blood Gas PEEP 5 cmH2O; Arterial Blood Gas Pressure Support 8 cmH2O; Arterial Blood Gas Vent Mode SPONTANEOUS
--- NOTE | 2019-08-03 16:40 | PM.PNGS ---
Progress Note: A&P Assessment and Plan (1) Pneumothorax on left: Code(s): J93.9 - Pneumothorax, unspecified Status: Acute Assessment and Plan: Chest tube in good position with chest x-ray showing lung inflated this am. Will keep chest tube to water seal and will leave chest tube in place while on positive pressure ventilation. Continue to follow with daily imaging. (2) Acute respiratory failure: Qualifiers: Respiratory failure complication: unspecified whether with hypoxia or hypercapnia Qualified Code(s): J96.00 - Acute respiratory failure, unspecified whether with hypoxia or hypercapnia Code(s): J96.00 - Acute respiratory failure, unspecified whether with hypoxia or hypercapnia Status: Acute Assessment and Plan: Remains on ventilator. Possible extubation today. Plan per Outreach Analyst. (3) Septic shock: Code(s): A41.9 - Sepsis, unspecified organism; R65.21 - Severe sepsis with septic shock Status: Acute Additional Plan Discussed the patient's case and plan of care with Dr. Cuellar. Subjective Subjective Date/Time Seen: 08/03/19 12:40 Interval history: Patient seen and examined with no family at the bedside. Nurse at the bedside reports patient is on a spontaneous breathing trial this morning. He is currently on Precedex and is agitated on the ventilator. No acute events overnight per the nurse. Review of Systems Review of Systems: ROS unobtainable: unobtainable due to endotracheal tube Exam Const: General: other (sedated and intubated) Nutritional Appearance: thin Resp: Effort & Inspection: other (Left anterior chest tube in good position, dressing dry and intact.) Auscultation: rhonchi ( Breath sounds noted throughout) Neuro: General: moves all extremities and Unable to assess gait Psych: Other: DIANNA due to sedation and on ventilator. Objective Data Vital Signs Vital Signs: Vital Signs - 24 hr 08/02/19 16:48 08/02/19 18:00 08/02/19 20:00 Temperature 36.9 C Pulse Rate 74 74 70 Respiratory Rate 14 18 Blood Pressure 98/59 L 89/60 L Pulse Oximetry 99 99 100 08/02/19 21:00 08/02/19 21:01 08/02/19 21:18 Temperature Pulse Rate 72 72 70 Respiratory Rate 11 L 11 L Blood Pressure Pulse Oximetry 100 08/02/19 22:00 08/02/19 23:30 08/03/19 00:00 Temperature 36.9 C Pulse Rate 74 62 63 Respiratory Rate 18 18 Blood Pressure 98/58 L 92/58 L Pulse Oximetry 98 100 100 08/03/19 01:47 08/03/19 01:51 08/03/19 02:00 Temperature Pulse Rate 63 63 65 Respiratory Rate 11 L 18 Blood Pressure 91/56 L Pulse Oximetry 100 100 08/03/19 02:30 08/03/19 04:00 08/03/19 04:46 Temperature 36.9 C Pulse Rate 62 69 76 Respiratory Rate 12 18 Blood Pressure 87/52 L Pulse Oximetry 97 97 08/03/19 06:00 08/03/19 07:42 08/03/19 07:52 Temperature Pulse Rate 65 70 63 Respiratory Rate 18 11 L 12 Blood Pressure 94/59 L Pulse Oximetry 98 97 08/03/19 08:00 08/03/19 10:00 08/03/19 12:00 Temperature 36.7 C 36.6 C Pulse Rate 70 59 L 54 L Respiratory Rate 11 L 11 L 10 L Blood Pressure 102/58 L 101/62 104/58 L Pulse Oximetry 100 98 98 08/03/19 12:10 08/03/19 14:00 08/03/19 14:33 Temperature Pulse Rate 60 65 77 Respiratory Rate 16 18 Blood Pressure 102/61 Pulse Oximetry 97 97 Intake/Output Intake/Output: Intake & Output 07/31/19 08/01/19 08/02/19 08/03/19 23:59 23:59 23:59 23:59 Intake Total 4985.0 3962 3160 2132.87 Output Total 1710 1250 880 310 Balance 3275.0 2712 2280 1822.87 Meds/Results Medications: Active Medications Generic Name Dose Route Start Last Admin Trade Name Freq PRN Reason Stop Dose Admin Dornase Erick 2.5 mg 07/31/19 10:00 08/03/19 07:42 Pulmozyme INHALATION 2.5 mg Q12HRT AMY Administration Fentanyl Citrate 50 mcg 07/30/19 18:19 Sublimaze IV PUSH Q2H PRN Pain Rated 7-10 Heparin Sodium (Porcine) 5,000 units 07/31/19 14:00 08/03/19 12:57
[2019-08-04] VITALS (15 sets, daily range): BP systolic 104–170; BP diastolic 51–100; PULSE 82–108; RESP 16–28; TEMP 36.4–37.6; O2SAT 81–95
[2019-08-04] MEDS: LEVALBUTEROL NEB 1.25 MG/3 ML 0.63 MG INHALATION ×4 (01:30→20:11)
[2019-08-04] MEDS: IPRATROPIUM BR 0.02% INH SOLN 0.5 MG/2.5 ML VIAL INHALATION ×4 (01:30→20:12)
[2019-08-04 05:12] LABS: Hematocrit 27.5 % (42.0-52.0); Hemoglobin 9.1 g/dL (14.0-18.0); Mean Corpuscular HGB Conc 33.1 g/dl (32-36); Mean Corpuscular Volume 87.6 fl (80-100); Mean Platelet Volume 9.6 fl (7.4-10.4); Platelet Count Result 365 k/mm3 (150-375); Red Blood Count 3.14 M/mm3 (4.6-6.20); Red Cell Distribution Width 16.1 % (11.5-14.5); White Blood Count 12.9 K/mm3 (4.5-10.0)
[2019-08-04 05:41] LABS: Blood Urea Nitrogen 23 mg/dL (9-20); Calcium 7.8 mg/dL (8.4-10.2); Carbon Dioxide 33 mmol/L (22-30); Chloride 102 mmol/L (98-107); Estimated Glomerular Filt Rate > 60; Glucose 101 mg/dL (75-110); Magnesium 2.2 mg/dL (1.6-2.3); Phosphorus 2.6 mg/dL (2.5-4.5); Potassium 3.4 mmol/L (3.4-5.0); Sodium 136 mmol/L (137-145)
--- NOTE | 2019-08-04 08:12 | PM.IMPN ---
Progress Note: A&P Assessment and Plan (1) Acute respiratory failure: Qualifiers: Respiratory failure complication: unspecified whether with hypoxia or hypercapnia Qualified Code(s): J96.00 - Acute respiratory failure, unspecified whether with hypoxia or hypercapnia Code(s): J96.00 - Acute respiratory failure, unspecified whether with hypoxia or hypercapnia Status: Acute Assessment and Plan: Probably result of pneumonia. Successfully extubated on 08/03/2019. No longer on Precedex. Continue nebulizer treatments including Pulmozyme. Remains on IV Zosyn and vancomycin. Was placed on oxygen by nasal cannula at 2 L after extubation. Weaned to room air this morning. Will continue to monitor. Hopeful transfer from ICU soon. (2) Septic shock: Code(s): A41.9 - Sepsis, unspecified organism; R65.21 - Severe sepsis with septic shock Status: Acute Assessment and Plan: Criteria met on admission. 1 of 2 blood cultures now positive for gram-negative bacilli with final results still pending. Urine culture negative. Sputum culture now with yeast. MRSA nasal swab negative. Blood pressure reviewed on 08/04/2019 and stable. Telemetry reviewed on 08/04/2019 with sinus rhythm. WBC down to 12.9 today. Will continue to monitor. (3) Pneumothorax on left: Code(s): J93.9 - Pneumothorax, unspecified Status: Acute Assessment and Plan: Likely caused during left IJ central line placement in ER. General surgery consulted and appreciate help. Chest tube replaced by Dr. Cuellar on 08/01/2019 due to redevelopment of pneumothorax after migration of original chest tube. Chest x-ray today with extensive subcutaneous emphysema in the left chest wall with left-sided apical chest tube in position. Management of chest tube per surgery. (4) Pneumonia: Qualifiers: Pneumonia type: due to unspecified organism Laterality: bilateral Lung location: unspecified part of lung Qualified Code(s): J18.9 - Pneumonia, unspecified organism Code(s): J18.9 - Pneumonia, unspecified organism Status: Acute Assessment and Plan: Chest x-ray today with bilateral airspace disease. Continue respiratory treatments and IV antibiotics as noted above. Sputum cultures noted above. (5) Hypophosphatemia: Code(s): E83.39 - Other disorders of phosphorus metabolism Status: Acute Assessment and Plan: Phosphorus normal at 2.6 today. Will continue to monitor. Replace as needed. (6) Normocytic anemia: Code(s): D64.9 - Anemia, unspecified Status: Acute Assessment and Plan: Acute on chronic with hemoglobin down to 6.9 on 08/02/2019 with transfusion of 1 unit PRBC. Hemoglobin now increased to 9.1 today. Will continue to monitor. Transfuse only if needed. No sign of active bleeding. (7) Metabolic acidosis: Code(s): E87.2 - Acidosis Status: Resolved Assessment and Plan: Secondary to septic shock and hypoperfusion. CO2 33 today. Monitor with treatment of acute issues as noted. (8) COPD (chronic obstructive pulmonary disease): Qualifiers: COPD type: unspecified COPD Qualified Code(s): J44.9 - Chronic obstructive pulmonary disease, unspecified Code(s): J44.9 - Chronic obstructive pulmonary disease, unspecified Status: Chronic Assessment and Plan: Now extubated as noted above. Continue respiratory treatments as noted above. (9) CHF (congestive heart failure): Qualifiers: Heart failure type: unspecified Heart failure chronicity: chronic Qualified Code(s): I50.9 - Heart failure, unspecified Code(s): I50.9 - Heart failure, unspecified Status: Chronic Assessment and Plan: Echocardiogram completed with grossly normal ejection fraction, grade 1 diastolic dysfunction and mild tricuspid valve regurgitation. Home lisinopril and metoprolol remain on hold. Will continue to monitor.
[2019-08-04] MEDS: HYDROCORTISONE SODIUM SUCCINATE 100 MG/2 ML VIAL 50 MG IV PUSH (09:01)
[2019-08-04] MEDS: FUROSEMIDE INJ 40 MG/4 ML VIAL IV PUSH (09:01)
[2019-08-04] MEDS: PANTOPRAZOLE SODIUM IV 40 MG VIAL IV PUSH (09:02)
--- NOTE | 2019-08-04 10:13 | PCSTNOTE ---
Bedside Swallow Evaluation This pt was seen for a bedside swallow evaluation after being extubated. He was seated upright at 45 degrees in bed and couldn't go further due to pain from his LE amputations. He was cooperative but would not allow palpation of his pharyngeal swallow. He is edentulous. The pt was given trials of thin liquid, extremely thick liquid, and puree. All trials were within normal limits and no clinical signs of aspiration were noted. No solid foods were given due to the pt's dentition. It is recommended that the pt receive an oral diet of soft and bite sized foods (6) and thin liquids (0). Position during intake should be as upright as possible. It is recommended for the pt to eat with supervision due to his impulsiveness. He may also require setup assistance. No skilled ST is warranted at this time.
--- NOTE | 2019-08-04 11:26 | WPDINTPN ---
Progress Note: A&P Assessment and Plan (1) Septic shock: Code(s): A41.9 - Sepsis, unspecified organism; R65.21 - Severe sepsis with septic shock Status: Acute Assessment and Plan: patient presented with hypotension, found to elevated lactic acid, acute kidney injury. - Likely source of septic shock: Lungs and urine - left IJ central line in place. Thornton removed if patient has good peripheral axis. - OFF Levophed for the last 36-48 hours. - Continue vancomycin and Zosyn. May potentially stop vancomycin and 1-2 days if cultures remain negative. - blood culture: Gram-negative bacilli 1 of 2 bottles. - Urine culture: No growth - sputum cultures: normal oropharyngeal radha, yeast isolated. - Will wean hydrocortisone to 50 mg once a day and will discontinue tomorrow. (2) Acute respiratory failure: Qualifiers: Respiratory failure complication: unspecified whether with hypoxia or hypercapnia Qualified Code(s): J96.00 - Acute respiratory failure, unspecified whether with hypoxia or hypercapnia Code(s): J96.00 - Acute respiratory failure, unspecified whether with hypoxia or hypercapnia Status: Acute Assessment and Plan: Acute respiratory failure likely related to pneumonia, intubated on 07/30/2019. Now extubated on 08/03/19 and seems to tolerated well. Influenza A and B were negative in the ED - continue antibiotics as above - continue bronchodilators. . Pulmozyme. - He is currently on room air. - Will give a dose of Lasix as chest x-ray still looks congested and had crepitation on auscultation. Strict intake output record and daily weight. - Speech evaluation Is pending. (3) Pneumothorax on left: Code(s): J93.9 - Pneumothorax, unspecified Status: Acute Assessment and Plan: iatrogenic pneumothorax status post left IJ line. Chest tube in place - 07/31 Chest tube was discontinued because of the side port and the subcutaneous tissue causing significant subcutaneous emphysema. Repeat chest x-ray showed reappearance of pneumothorax requiring placing chest tube again. - surgery managing the chest tube, - Chest tube to water seal. still with significant air leak. (4) UTI (urinary tract infection): Qualifiers: Hematuria presence: without hematuria Urinary tract infection type: site unspecified Qualified Code(s): N39.0 - Urinary tract infection, site not specified Code(s): N39.0 - Urinary tract infection, site not specified Status: Ruled-out Assessment and Plan: UA revealed urinary tract infection - urine culture negative so far, continue antibiotics as above (5) GERD (gastroesophageal reflux disease): Qualifiers: Esophagitis presence: esophagitis presence not specified Qualified Code(s): K21.9 - Gastro-esophageal reflux disease without esophagitis Code(s): K21.9 - Gastro-esophageal reflux disease without esophagitis Status: Acute Assessment and Plan: Continue Protonix. (6) CHF (congestive heart failure): Qualifiers: Heart failure chronicity: chronic Heart failure type: unspecified Qualified Code(s): I50.9 - Heart failure, unspecified Code(s): I50.9 - Heart failure, unspecified Status: Chronic Assessment and Plan: history of congestive heart failure. No echocardiogram in the system. Will give a dose of Lasix as he still looks congested both on exam and thoracic imaging. (7) DVT prophylaxis: Code(s): Z29.9 - Encounter for prophylactic measures, unspecified Status: Acute Assessment and Plan: heparin SQ (8) Dietary surveillance and counseling: Code(s): Z71.3 - Dietary counseling and surveillance Status: Acute Assessment and Plan: speech evaluation is pending. He will be started on diet after speech evaluation. (9) Normocytic anemia: Code(s): D64.9 - Anemia, unspecified
--- NOTE | 2019-08-04 11:46 | PCOTNOTE ---
Attempted Occupational Therapy Evaluation on this date, pt reports does not want any kind of therapy and for us to go away go away . RN and Dr. Gudino aware. Per Dr. Gudino discontinue OT at this time.
--- NOTE | 2019-08-04 11:50 | PCPTNOTE ---
[facility]oyd received...pt refused... go away pt apparently is dependent at [facility]...uses wc for mobility, and states that facility uses [facility] for transfers...spoke with and he will d/c PT/OT orders
--- NOTE | 2019-08-04 12:49 | PM.PNGS ---
Progress Note: A&P Assessment and Plan (1) Pneumothorax on left: Code(s): J93.9 - Pneumothorax, unspecified Status: Acute Assessment and Plan: Does have subcutaneous emphysema but no pleural leak seen. If chest x-ray looks good tomorrow will DC chest tube. Discussed with weigher and charger. (2) Acute respiratory failure: Qualifiers: Respiratory failure complication: unspecified whether with hypoxia or hypercapnia Qualified Code(s): J96.00 - Acute respiratory failure, unspecified whether with hypoxia or hypercapnia Code(s): J96.00 - Acute respiratory failure, unspecified whether with hypoxia or hypercapnia Status: Acute Assessment and Plan: Extubated and seems to be breathing well. Subjective Subjective Date/Time Seen: 08/04/19 12:50 Extubated. No complaints but does not appear to be fully lucid. Does know he is at [facility]. Review of Systems Review of Systems: ROS unobtainable: unobtainable due to mental status Exam Resp: Effort & Inspection: normal respiratory effort, no respiratory distress, no stridor and other (Chest tube dressing dry and intact. No pleural leak seen.) Auscultation: rhonchi and No rub present Other: Subcutaneous emphysema Psych: Appearance: disheveled Affect: Irritable affect present Insight: Poor insight present (Psych) Judgement: Poor judgement present (Psych) Objective Data Vital Signs Vital Signs: Vital Signs - 24 hr 08/03/19 14:00 08/03/19 14:33 08/03/19 14:43 Temperature Pulse Rate 65 77 71 Respiratory Rate 16 18 18 Blood Pressure 102/61 Pulse Oximetry 97 08/03/19 16:00 08/03/19 18:00 08/03/19 20:00 Temperature 36.7 C 36.6 C Pulse Rate 93 85 80 Respiratory Rate 18 20 18 Blood Pressure 91/59 L 104/65 95/69 L Pulse Oximetry 96 95 95 08/03/19 20:11 08/03/19 20:26 08/03/19 22:00 Temperature Pulse Rate 90 88 91 Respiratory Rate 22 H 18 19 Blood Pressure 94/63 L Pulse Oximetry 94 95 08/04/19 00:00 08/04/19 01:30 08/04/19 01:41 Temperature 36.9 C Pulse Rate 85 87 89 Respiratory Rate 23 H 19 18 Blood Pressure 114/78 Pulse Oximetry 95 08/04/19 02:00 08/04/19 04:00 08/04/19 06:00 Temperature 36.7 C Pulse Rate 102 H 108 H 83 Respiratory Rate 18 24 H 16 Blood Pressure 111/68 126/82 104/67 Pulse Oximetry 93 93 91 08/04/19 07:52 08/04/19 08:00 08/04/19 08:04 Temperature Pulse Rate 93 82 89 Respiratory Rate 28 H 20 23 H Blood Pressure 107/67 Pulse Oximetry 90 90 Intake/Output Intake/Output: Intake & Output 08/01/19 08/02/19 08/03/19 08/04/19 23:59 23:59 23:59 23:59 Intake Total 3962 3160 2752.87 380 Output Total 4127 195 9783 580 Balance 2712 2280 1207.87 -200 Meds/Results Medications: Active Medications Generic Name Dose Route Start Last Admin Trade Name Freq PRN Reason Stop Dose Admin Divalproex Sodium 250 mg 08/04/19 17:00 Depakote Sprinkle PO BID AMY Heparin Sodium (Porcine) 5,000 units 07/31/19 14:00 08/04/19 06:06 Heparin Sodium SUB-Q Not Given Q8HR AMY Hydrocortisone Sodium Succinate 50 mg 08/04/19 09:00 08/04/19 09:01 Solu-Cortef IV PUSH 50 mg DAILY AMY Administration Piperacillin Sod/Tazobactam Sod 2.25 gm in 50 mls @ 100 mls/hr 07/30/19 22:00 08/04/19 06:33 Zosyn 2.25 Gm/D5w 50 Ml IVPB Infused Q6HR AMY Infusion Vancomycin HCl 1,000 mg in 250 mls @ 250 mls/hr 08/03/19 17:00 08/04/19 05:41 Vancomycin 1,000 Mg/D5w 250 Ml IVPB Infused Q12H AMY Infusion Ipratropium Petal 0.5 mg 07/31/19 14:00 08/04/19 07:49 Atrovent Neb INHALATION 0.5 mg Q6HRT AMY Administration Levalbuterol HCl 0.63 mg 07/31/19 14:00 08/04/19 07:49 Xopenex 1.25 Mg/3 Ml INHALATION 0.63 mg Q6HRT AMY Administration Morphine Sulfate 2 mg 08/04/19 07:40 Morphine Sulfate Inj IV PUSH Q4H PRN Pain Rated 7-10 Ondansetron HCl 4 mg 07/30/19 18:19 Zofran Inj IV PUSH Q4H PRN N
[2019-08-04] MEDS: HEPARIN SODIUM 5,000 UNITS/ML VIAL 5000 UNITS SUB-Q (17:56)
[2019-08-04] MEDS: DIVALPROEX SODIUM SPRINKLE 125 MG CAP.DR 250 MG PO (17:57)
--- NOTE | 2019-08-04 19:15 | ADMGEN ---
This patient, Garcia Goodwin, was admitted to 3 [facility] Surg Room 331-01. Patient/family oriented to hospital policies and general routines including ID bracelet, bed and alarms, visiting hours, pain management, procedures, bathroom and other care routines, personal items, smoking policy, room service/diet, and visiting hours.s
[2019-08-05] VITALS (27 sets, daily range): BP systolic 73–156; BP diastolic 52–98; PULSE 84–121; RESP 16–30; TEMP 36.4–37.2; O2SAT 79–100
[2019-08-05] MEDS: IPRATROPIUM BR 0.02% INH SOLN 0.5 MG/2.5 ML VIAL INHALATION ×4 (02:37→21:07)
[2019-08-05] MEDS: LEVALBUTEROL NEB 1.25 MG/3 ML 0.63 MG INHALATION ×4 (02:37→21:07)
--- NOTE | 2019-08-05 03:05 | PCRCNOTE ---
PT SPO2 LOW PRIOR TO NEB TX. O2 CHANGES DOCUMENTED ON FLOWSHEET. STAT CXR DONE, DR WAHL NOTIFIED. KEY ACCOUNT COORDINATOR PLACED CALL TO DR DILL REGARDING CHEST TUBE, WHICH WAS EVALUATED BY DIAL PRINTER. SPO2 STABLE ON NRB.
--- NOTE | 2019-08-05 03:15 | PC.NURSE ---
Rt found patient with O2 saturation in the low 70%. Pt O2 was increased to 15L per mask and saturation increased to 86%. Pt was responsive with no complaint of SOB. tool and die supervisor was nearby and rapid was called but not paged overhead since members were already present. Stat CXR was obtained. Dr Lozano was consulted along with Dr Cuellar. Pt chest tube was ordered to suction per Dr. Cuellar. Pt transferred to IMU 206-1.
--- NOTE | 2019-08-05 03:55 | P.PNCROSS_ITS ---
Event Note Event Note Event Note: Nursing staff called just before 3:00 a.m. to notify me the patient had a rapid increase in oxygen requirement. Nursing staff report him in the patient had been on room air at shift change. At around 10:00 p.m. he developed an oxygen requirement of 4 L nasal cannula with his next evaluation the patient was hypoxic again and it is oxygen requirement was increased to 6 L. when respiratory therapy went in to evaluate the patient patient was hypoxic with oxygen saturations in the 70s. Patient was placed on a non-rebreather. A stat chest x-ray was obtained which demonstrated significant increase in size of the patient's pneumothorax despite chest tube. I instructed the nursing staff to contact the general surgeon for further recommendations. Evidently turned out the patient's chest tube had been placed to water-seal. The surgeon recommended the chest to be placed back to suction and that he would re-evaluate the patient in the morning. I went to evaluate the patient and he had coarse breath sounds bilaterally in upper anterior berg. He had some mild accessory muscle use. He had a non-rebreather in place and was satting 88 to 92% while I was at the bedside. The patient does have a history of COPD. He is chronically ill- appearing in sitting upright almost at a 90 degree angle. He is physically deconditioned with tacky mucous membranes. I is mildly tachycardic with somewhat bounding pulses. Patient was unable to answer questions but nursing staff tells me that this is pretty much patient's baseline mentation. Patient was not diaphoretic skin was normal temperature any as generalized pallor. The patient's vital signs were reviewed. His blood pressures have been stable. He has been afebrile with a temperature of 99?. Acute hypoxic respiratory failure: I gave the patient 1 time dose of the Lasix. The patient's chest tube was placed back to suction. Since is been placed back to suction he has had a relatively large amount of fluid output. The patient will be transferred to IMU for closer monitoring. 30 minutes was spent in critical care activities including bedside evaluation the patient, discussing the patient's care with nursing staff, review of past medical records and recent lab, as well as personal review of imaging studies. The patient's condition have high probability of decline without these interventions.
--- NOTE | 2019-08-05 04:05 | PC.NURSE ---
This patient, Garcia Goodwin, was received from [[phone] ] on 08/05/19 at 0338 for increased oxygen requirements with a chest tube. Personal belongings list checked and signed. Patient/family oriented to unit policies and routines
[2019-08-05 04:07] LABS: Hematocrit 31.8 % (42.0-52.0); Hemoglobin 10.2 g/dL (14.0-18.0); Mean Corpuscular Volume 89.3 fl (80-100); Red Blood Count 3.56 M/mm3 (4.6-6.20); White Blood Count 14.5 K/mm3 (4.5-10.0)
[2019-08-05 04:08] LABS: Mean Corpuscular HGB Conc 32.1 g/dl (32-36); Mean Corpuscular Hemoglobin 28.7 pg (26-34); Mean Platelet Volume 9.6 fl (7.4-10.4); Platelet Count Result 437 k/mm3 (150-375)
[2019-08-05 04:22] LABS: Blood Urea Nitrogen 24 mg/dL (9-20); Carbon Dioxide 35 mmol/L (22-30); Estimated Glomerular Filt Rate > 60; Glucose 87 mg/dL (75-110); Phosphorus 2.8 mg/dL (2.5-4.5)
[2019-08-05 04:40] LABS: Calcium 7.9 mg/dL (8.4-10.2); Chloride 98 mmol/L (98-107); Magnesium 2.1 mg/dL (1.6-2.3); Potassium 3.1 mmol/L (3.4-5.0); Sodium 137 mmol/L (137-145)
[2019-08-05 04:44] LABS: Vancomycin Trough 13.7 ug/mL (10.0-20.0)
--- NOTE | 2019-08-05 06:39 | PC.NURSE ---
0300 rapid response charted for Zeynep Mayfield RN.
--- NOTE | 2019-08-05 08:05 | PM.IMPN ---
Progress Note: A&P Assessment and Plan (1) Acute respiratory failure: Qualifiers: Respiratory failure complication: unspecified whether with hypoxia or hypercapnia Qualified Code(s): J96.00 - Acute respiratory failure, unspecified whether with hypoxia or hypercapnia Code(s): J96.00 - Acute respiratory failure, unspecified whether with hypoxia or hypercapnia Status: Acute Assessment and Plan: Probably result of pneumonia as well as pneumothorax at this point. Successfully extubated on 08/03/2019. Continue nebulizer treatments including Pulmozyme. Remains on IV Zosyn and vancomycin. Was on room air until issues with pneumothorax as noted below. Now on non-rebreather but will and wean oxygen as tolerated. Continue to monitor closely. (2) Septic shock: Code(s): A41.9 - Sepsis, unspecified organism; R65.21 - Severe sepsis with septic shock Status: Acute Assessment and Plan: Criteria met on admission. 1 of 2 blood cultures now positive for gram-negative bacilli with final results still pending but preliminary indicating unable to identify. Urine culture negative. Sputum culture now with yeast. MRSA nasal swab negative. Blood pressure reviewed on 08/05/2019 with variability but current readings acceptable. Telemetry reviewed on 08/05/2019 with sinus rhythm. WBC slightly higher at 14.5 today but may be stress related due to issues overnight. Will continue to monitor. (3) Pneumothorax on left: Code(s): J93.9 - Pneumothorax, unspecified Status: Acute Assessment and Plan: Likely caused during left IJ central line placement in ER. General surgery consulted and appreciate help. Chest tube replaced by Dr. Cuellar on 08/01/2019 due to redevelopment of pneumothorax after migration of original chest tube. Additional issues overnight with increase in pneumothorax. Now in. On rebreather but will wean oxygen as tolerated. Tubing remains in place other suction equipment exchanged. Will repeat chest x-ray. Await further recommendations from surgery. (4) Pneumonia: Qualifiers: Pneumonia type: due to unspecified organism Laterality: bilateral Lung location: unspecified part of lung Qualified Code(s): J18.9 - Pneumonia, unspecified organism Code(s): J18.9 - Pneumonia, unspecified organism Status: Acute Assessment and Plan: Continue respiratory treatments and IV antibiotics as noted above. Repeat chest x-ray after adjustment to chest tube equipment pending. Sputum culture as noted above. (5) Hypokalemia: Code(s): E87.6 - Hypokalemia Status: Acute Assessment and Plan: Potassium 3.1 today. Will give IV replacement with current situation. Will continue to monitor replace as needed. (6) Hypophosphatemia: Code(s): E83.39 - Other disorders of phosphorus metabolism Status: Acute Assessment and Plan: Phosphorus normal at 2.8 today. Will continue to monitor. Replace as needed. (7) Normocytic anemia: Code(s): D64.9 - Anemia, unspecified Status: Acute Assessment and Plan: Acute on chronic with hemoglobin down to 6.9 on 08/02/2019 with transfusion of 1 unit PRBC. Hemoglobin continues to increase and up to 10.2 today. Will continue to monitor. Transfuse only if needed. No sign of active bleeding. (8) Metabolic acidosis: Code(s): E87.2 - Acidosis Status: Resolved Assessment and Plan: Secondary to septic shock and hypoperfusion. CO2 35 today. Monitor with treatment of acute issues as noted. (9) COPD (chronic obstructive pulmonary disease): Qualifiers: COPD type: unspecified COPD Qualified Code(s): J44.9 - Chronic obstructive pulmonary disease, unspecified Code(s): J44.9 - Chronic obstructive pulmonary disease, unspecified Status: Chronic Assessment and Plan: Continue respiratory treatments as noted above. (10) CHF (congestive heart f
--- NOTE | 2019-08-05 08:06 | PCSTNOTE ---
Pt had Bedside Swallow Evaluation yesterday (08/04/19) but had change of condition and now requires more O2. Cancelled duplicate ST eval order today but may reevaluate tomorrow.
[2019-08-05] MEDS: PANTOPRAZOLE SODIUM IV 40 MG VIAL IV PUSH (09:05)
[2019-08-05] MEDS: HYDROCORTISONE SODIUM SUCCINATE 100 MG/2 ML VIAL 50 MG IV PUSH (09:05)
--- NOTE | 2019-08-05 11:52 | PM.PNGS ---
Progress Note: A&P Assessment and Plan (1) Pneumothorax on left: Code(s): J93.9 - Pneumothorax, unspecified Status: Acute Assessment and Plan: It appears Pleur-Evac was not working well. Putting the chest tube back to suction and changing the Pleur-Evac which nursing did early this morning has greatly improved the situation that developed at 4:00 a.m.. Currently the subcutaneous emphysema is decreasing. The patient is on rebreather mask but seems to be breathing much more normally than was described before. Continue to monitor with clinical assessment as well as daily chest x-rays. I discussed with Dr. Arreaga, if the pneumothorax cannot be resolved with chest tube that is currently in place, patient should be transferred to facility where thoracic surgery is available. (2) Acute respiratory failure: Qualifiers: Respiratory failure complication: unspecified whether with hypoxia or hypercapnia Qualified Code(s): J96.00 - Acute respiratory failure, unspecified whether with hypoxia or hypercapnia Code(s): J96.00 - Acute respiratory failure, unspecified whether with hypoxia or hypercapnia Status: Acute Assessment and Plan: Much improved. Exacerbation earlier this morning appears to be due to Pleur-Evac malfunction and now has been corrected. Hopefully we will see continued improvement. (3) COPD (chronic obstructive pulmonary disease): Qualifiers: COPD type: unspecified COPD Qualified Code(s): J44.9 - Chronic obstructive pulmonary disease, unspecified Code(s): J44.9 - Chronic obstructive pulmonary disease, unspecified Status: Chronic Subjective Subjective Date/Time Seen: 08/05/19 11:52 Events of earlier this morning noted. All x-rays reviewed. Patient has rebreather mask on O2 and is unable to answer questions. This was his mental status yesterday as well. He does not like to have his chest examined either. Not combative but certainly prefers not to be touched or examined. No real subjective findings to be obtained. Review of Systems Review of Systems: All systems reviewed & are unremarkable except as noted in HPI and below (HPI) ROS unobtainable: unobtainable due to mental status Exam Resp: Effort & Inspection: respiratory distress (Much better than earlier this morning) and tachypneic Auscultation: rhonchi Objective Data Vital Signs Vital Signs: Vital Signs - 24 hr 08/04/19 13:16 08/04/19 15:28 08/04/19 20:12 Temperature 37.6 C Pulse Rate 96 87 89 Respiratory Rate 24 H 16 20 Blood Pressure 170/100 H Pulse Oximetry 90 81 L 08/04/19 20:23 08/04/19 21:04 08/04/19 22:00 Temperature 36.4 C Pulse Rate 87 86 93 Respiratory Rate 22 H 20 22 H Blood Pressure 123/51 L Pulse Oximetry 90 90 08/05/19 02:37 08/05/19 02:50 08/05/19 03:01 Temperature Pulse Rate 101 H 106 H Respiratory Rate 24 H 24 H Blood Pressure Pulse Oximetry 80 L 85 L 79 L 08/05/19 03:04 08/05/19 03:52 08/05/19 03:53 Temperature 37.2 C Pulse Rate 115 H 112 H Respiratory Rate 24 H Blood Pressure 130/98 H Pulse Oximetry 89 L 88 L 08/05/19 06:15 08/05/19 07:45 08/05/19 08:00 Temperature 36.7 C Pulse Rate 106 H 121 H 104 H Respiratory Rate 24 H 30 H Blood Pressure 156/89 H 90/55 L Pulse Oximetry 89 L 98 08/05/19 08:15 08/05/19 08:30 08/05/19 08:35 Temperature Pulse Rate 98 98 Respiratory Rate 20 20 Blood Pressure Pulse Oximetry 92 08/05/19 10:00 Temperature Pulse Rate 101 H Respiratory Rate Blood Pressure Pulse Oximetry Intake/Output Intake/Output: Intake & Output 08/02/19 08/03/19 08/04/19 08/05/19 23:59 23:59 23:59 23:59 Intake Total 3160 2752.87 930 450 Output Total 880 1545 2930 2070 Balance 2280 1207.87 -2000 -1620 Meds/Results Medications: Active Medications Generic Name Dose Route Start Last Admin Trade Name Freq PRN Reason Stop Dose Admin Divalproex Sodium 250 mg 08/03
[2019-08-05] MEDS: HEPARIN SODIUM 5,000 UNITS/ML VIAL 5000 UNITS SUB-Q ×2 (13:36→23:48)
[2019-08-05] MEDS: DIVALPROEX SODIUM SPRINKLE 125 MG CAP.DR 250 MG PO (16:26)
[2019-08-06] VITALS (26 sets, daily range): BP systolic 99–121; BP diastolic 53–72; PULSE 71–96; RESP 16–22; TEMP 36.3–37.3; O2SAT 91–100
[2019-08-06 04:02] LABS: Hematocrit 27.2 % (42.0-52.0); Hemoglobin 8.7 g/dL (14.0-18.0); Mean Corpuscular Hemoglobin 28.9 pg (26-34); Mean Corpuscular Volume 90.4 fl (80-100); Mean Platelet Volume 9.7 fl (7.4-10.4); Platelet Count Result 371 k/mm3 (150-375); Red Blood Count 3.01 M/mm3 (4.6-6.20); White Blood Count 11.2 K/mm3 (4.5-10.0)
[2019-08-06 04:19] LABS: Alanine Aminotransferase 65 U/L (4-50); Albumin Level 2.3 g/dL (3.5-5.1); Alkaline Phosphatase 92 U/L (38-126); Aspartate Amino Transferase 70 U/L (17-59); Bilirubin,Total 0.3 mg/dL (0.2-1.3); Blood Urea Nitrogen 23 mg/dL (9-20); Calcium 7.7 mg/dL (8.4-10.2); Carbon Dioxide 35 mmol/L (22-30); Chloride 100 mmol/L (98-107); Estimated Glomerular Filt Rate > 60; Glucose 90 mg/dL (75-110); Magnesium 2.2 mg/dL (1.6-2.3); Phosphorus 3.3 mg/dL (2.5-4.5); Potassium 3.4 mmol/L (3.4-5.0); Sodium 134 mmol/L (137-145)
[2019-08-06] MEDS: HEPARIN SODIUM 5,000 UNITS/ML VIAL 5000 UNITS SUB-Q ×3 (05:17→21:22)
[2019-08-06] MEDS: LEVALBUTEROL NEB 1.25 MG/3 ML 0.63 MG INHALATION ×3 (07:59→20:44)
[2019-08-06] MEDS: IPRATROPIUM BR 0.02% INH SOLN 0.5 MG/2.5 ML VIAL INHALATION ×3 (07:59→20:45)
[2019-08-06] MEDS: DIVALPROEX SODIUM SPRINKLE 125 MG CAP.DR 250 MG PO (08:37)
[2019-08-06] MEDS: HYDROCORTISONE SODIUM SUCCINATE 100 MG/2 ML VIAL 50 MG IV PUSH (08:38)
[2019-08-06] MEDS: PANTOPRAZOLE SODIUM IV 40 MG VIAL IV PUSH (08:38)
--- NOTE | 2019-08-06 09:02 | PM.IMPN ---
Progress Note: A&P Assessment and Plan (1) Acute respiratory failure: Qualifiers: Respiratory failure complication: unspecified whether with hypoxia or hypercapnia Qualified Code(s): J96.00 - Acute respiratory failure, unspecified whether with hypoxia or hypercapnia Code(s): J96.00 - Acute respiratory failure, unspecified whether with hypoxia or hypercapnia Status: Acute Assessment and Plan: Probably result of pneumonia as well as pneumothorax. Successfully extubated on 08/03/2019. Had desaturation issues with position last night with chest xray showing left chest tube in place but increasing opacities throughout the left lung primarily to partial collapse of the left lung with leftward shift of the heart and mediastinum, superimposed pneumonia not excludable. Was repositioned after xray. On high-flow oxygen at 12. Repeat chest x-ray this morning. May need chest CT. Add incentive spirometer. Continue nebulizer treatments including Pulmozyme. Continue IV Zosyn and vancomycin. Will consult pulmonology. Check ABG. May need transfer to a tertiary center. (2) Septic shock: Code(s): A41.9 - Sepsis, unspecified organism; R65.21 - Severe sepsis with septic shock Status: Acute Assessment and Plan: Criteria met on admission. 1 of 2 blood cultures now positive for gram-negative bacilli with final results indicating unable to identify. Urine culture negative. Sputum culture now with yeast. MRSA nasal swab negative. Will continue current IV antibiotics as noted above. Blood pressure reviewed on 08/06/2019 with readings low normal but remaining stable. Telemetry reviewed on 08/06/2019 with sinus rhythm. WBC back down to 11.2 today. Will continue to monitor. (3) Pneumothorax on left: Code(s): J93.9 - Pneumothorax, unspecified Status: Acute Assessment and Plan: Likely caused during left IJ central line placement in ER. General surgery consulted and appreciate help. Chest tube replaced by Dr. Cuellar on 08/01/2019 due to redevelopment of pneumothorax after migration of original chest tube. Suction equipment exchanged yesterday. Chest tube in place with no pneumothorax on last image but other issues as noted above. Management of chest tube per surgery. (4) Pneumonia: Qualifiers: Pneumonia type: due to unspecified organism Laterality: bilateral Lung location: unspecified part of lung Qualified Code(s): J18.9 - Pneumonia, unspecified organism Code(s): J18.9 - Pneumonia, unspecified organism Status: Acute Assessment and Plan: Last chest xray as noted above with image pending this morning. Continue respiratory treatments and IV antibiotics as noted above. Sputum culture as noted above. (5) Hypokalemia: Code(s): E87.6 - Hypokalemia Status: Acute Assessment and Plan: Potassium 3.4 today. Will continue to monitor and replace as needed. (6) Hypophosphatemia: Code(s): E83.39 - Other disorders of phosphorus metabolism Status: Acute Assessment and Plan: Phosphorus normal at 3.3 today. Will continue to monitor. (7) Normocytic anemia: Code(s): D64.9 - Anemia, unspecified Status: Acute Assessment and Plan: Acute on chronic with hemoglobin down to 6.9 on 08/02/2019 with transfusion of 1 unit PRBC. Hemoglobin dropped to 8.7 today but no signs of bleeding. Will continue to monitor. Transfuse only if needed. No sign of active bleeding. (8) Metabolic acidosis: Code(s): E87.2 - Acidosis Status: Resolved Assessment and Plan: Secondary to septic shock and hypoperfusion. CO2 35 again today. Monitor with treatment of acute issues as noted. (9) COPD (chronic obstructive pulmonary disease): Qualifiers: COPD type: unspecified COPD Qualified Code(s): J44.9 - Chronic obstructive pulmonary disease, unspecified Code(s): J44.9 - Chronic obstructive pulmona
[2019-08-06 10:28] LABS: Alveolar/Arterial O2 Gradient 380.5 mmHg; Base Excess ABG 5.3 mEq/l (+/-2.0); Carboxyhemoglobin 0.3 % THb (0-2.0); Fractional Inspired Oxygen 72 %; HCO3 ABG 28.3 mEq/l (22.0-26.0); Methemoglobin ABG 0.4 %THb (0-1.5); Oxygen Content ABG 14.3 %vol (16.0-22.0); Oxygen Saturation ABG 97.9 % (95.0-100.0); PCO2 ABG 35.4 mmHg (35.0-45.0); PO2 FiO2 Ratio Arterial Blood 1.32 %; Reduced Hemoglobin 3.3 %THb (0-5.0); Total Hemoglobin 10.5 g/dL (12.0-18.0)
[2019-08-06 10:29] LABS: pH ABG 7.521 (7.350-7.450)
[2019-08-06 10:30] LABS: Modified Allen's Test Pass; Site Drawn LEFT RADIAL
[2019-08-06 10:31] LABS: Device HIGH FLOW NASAL CANN
--- NOTE | 2019-08-06 10:37 | PM.PNGS ---
Progress Note: A&P Assessment and Plan (1) Pneumothorax on left: Code(s): J93.9 - Pneumothorax, unspecified Status: Acute Assessment and Plan: Not sure why patient continues to have subcutaneous emphysema but it does seem to be stable. Chest tube appears to be working. I do not have evidence of a large pleural leak. Chest x-ray shows no pneumothorax but consolidation and some loss of volume on the left side. I discussed with brought us. Will ask Pulmonary to see the patient. (2) Acute respiratory failure: Qualifiers: Respiratory failure complication: unspecified whether with hypoxia or hypercapnia Qualified Code(s): J96.00 - Acute respiratory failure, unspecified whether with hypoxia or hypercapnia Code(s): J96.00 - Acute respiratory failure, unspecified whether with hypoxia or hypercapnia Status: Acute Assessment and Plan: Another brief episode last night. Seems to be much better this morning. (3) Pneumonia: Qualifiers: Pneumonia type: due to unspecified organism Laterality: bilateral Lung location: unspecified part of lung Qualified Code(s): J18.9 - Pneumonia, unspecified organism Code(s): J18.9 - Pneumonia, unspecified organism Status: Acute Assessment and Plan: Continues on Zosyn and vancomycin. Subjective Subjective Date/Time Seen: 08/06/19 10:37 More calm today. Had another episode of hypoxemia last night. Continues to have subcutaneous emphysema on chest films and exam. On a nasal cannula O2 this morning and does not appear short of breath. Review of Systems Review of Systems: ROS unobtainable: unobtainable due to mental status Exam Chest: Chest palpation & inspection: other ( chest tube dressing dry and intact.) Resp: Effort & Inspection: normal respiratory effort and no cough Auscultation: rhonchi and other ( No pleural leak although patient will not cough) Objective Data Vital Signs Vital Signs: Vital Signs - 24 hr 08/05/19 12:00 08/05/19 14:00 08/05/19 14:15 Temperature 36.6 C Pulse Rate 93 89 96 Respiratory Rate 28 H 20 Blood Pressure 95/55 L Pulse Oximetry 100 08/05/19 14:25 08/05/19 16:00 08/05/19 18:00 Temperature 36.6 C Pulse Rate 98 94 88 Respiratory Rate 20 22 H Blood Pressure 95/59 L Pulse Oximetry 95 08/05/19 19:55 08/05/19 20:00 08/05/19 21:07 Temperature 36.4 C L Pulse Rate 84 87 96 Respiratory Rate 22 H 22 H 20 Blood Pressure 96/58 L Pulse Oximetry 92 92 94 08/05/19 21:18 08/05/19 21:33 08/05/19 21:46 Temperature Pulse Rate 91 Respiratory Rate 20 Blood Pressure Pulse Oximetry 88 L 93 08/05/19 22:00 08/05/19 23:18 08/06/19 00:00 Temperature 36.6 C Pulse Rate 88 93 88 Respiratory Rate 16 16 Blood Pressure 98/58 L Pulse Oximetry 91 91 08/06/19 02:00 08/06/19 03:08 08/06/19 04:00 Temperature Pulse Rate 88 86 80 Respiratory Rate 22 H 22 H Blood Pressure Pulse Oximetry 94 94 08/06/19 04:56 08/06/19 06:00 08/06/19 07:43 Temperature 37.3 C 36.3 C L Pulse Rate 83 86 74 Respiratory Rate 16 20 Blood Pressure 116/72 104/56 L Pulse Oximetry 94 94 08/06/19 08:00 08/06/19 08:12 08/06/19 10:11 Temperature Pulse Rate 85 91 Respiratory Rate 20 20 Blood Pressure Pulse Oximetry 91 100 Intake/Output Intake/Output: Intake & Output 08/03/19 08/04/19 08/05/19 08/06/19 23:59 23:59 23:59 23:59 Intake Total 2752.87 930 1450 150 Output Total 1545 2930 2620 510 Balance 1207.87 -2000 -1170 -360 Meds/Results Medications: Active Medications Generic Name Dose Route Start Last Admin Trade Name Freq PRN Reason Stop Dose Admin Divalproex Sodium 250 mg 08/04/19 17:00 08/06/19 08:37 Depakote Sprinkle PO 250 mg BID AMY Administration Heparin Sodium (Porcine) 5,000 units 07/31/19 14:00 08/06/19 05:17 Heparin Sodium SUB-Q 5,000 units Q8HR AMY Administration Hydrocortis
--- NOTE | 2019-08-06 11:21 | PCDIET ---
Nutrition Follow-Up Complete: Nutrition Diagnosis: Inadequate protein intake related to wounds as evidenced by deep tissue pressure ulcer. Nutrition Goal: Patient to meet estimated energy needs. Goal not met. Patient extubated with diet upgrade to minced and moist, heart healthy. Eating 20-30% of meals. Recommend changing Pro-Stat supplement to Ensure Compact (220kcal, 9g protein) BID. Also suggest liberalizing diet to minced and moist only (no heart healthy restriction). Last recorded weight is 56.7 kg which is stable. Bowel Motility: Last documented bowel movement on 08/03/19. Labs Reviewed: Na (134), Alb (2.3), Joe Ca (9.06) Meds Noted: Solu Cortef, Atrovent, Protonix, Zosyn, Vancomycin Additional Notes: No change in skin; noted multiple wounds. Nutrition Monitoring and Evaluation: Follow up every 3 days.
--- NOTE | 2019-08-06 13:08 | PM.CNPUL ---
Assessment and Plan Assessment and plan (1) Acute respiratory failure: Qualifiers: Respiratory failure complication: unspecified whether with hypoxia or hypercapnia Qualified Code(s): J96.00 - Acute respiratory failure, unspecified whether with hypoxia or hypercapnia Code(s): J96.00 - Acute respiratory failure, unspecified whether with hypoxia or hypercapnia Status: Acute Assessment and Plan: July 29 -- sepsis with acute respiratory failure attributed to pneumonia, required intubation and Left IJ line with atrogenic left pneumothorax, left chest tube, new chest tube placed July 31; extubated Aug 02; now with recurrent episodes of left lung plugging with increased O2 requirements. Chest tube is functional, has small air leak. High res chest CT shows significant emphysema, pneumonia in both bases Left > than Right with the left chest tube and a small effusion that appears to be an exudate, the volume of fluid is too small to tap. I recommend continuing antibiotics for treatment, bronchodilators, and add controller meds with Symbicort. We will wean his O2 as tolerated. He needs higher amounts when he has plugging and atelectasis. (2) COPD (chronic obstructive pulmonary disease): Qualifiers: COPD type: unspecified COPD Qualified Code(s): J44.9 - Chronic obstructive pulmonary disease, unspecified Code(s): J44.9 - Chronic obstructive pulmonary disease, unspecified Status: Chronic Assessment and Plan: Has a history of COPD, no longer smoking; continue brochodailtros, Incentive spirometer, Pulmozyme, deep breathing. Cannot ambulate too easily with chest tube taped to his left side. (3) Alkalosis: Code(s): E87.3 - Alkalosis Status: Acute Assessment and Plan: He has a metabolic and respiratory alkalosis; pH remains 7.52 with increased respiratory rate, and his A-a gradient is greatly increased. This is worrisome for a PE. This is not going to show up on a CXR. His plain CXR has been improving slowly, still has subcutaneous emphysema however lungs are inflated. Will CT scan lung evaluate for plugging; there is not evidence of a pulmonary embolus. . (4) Pneumonia: Qualifiers: Laterality: bilateral Lung location: unspecified part of lung Pneumonia type: due to unspecified organism Qualified Code(s): J18.9 - Pneumonia, unspecified organism Code(s): J18.9 - Pneumonia, unspecified organism Status: Acute Assessment and Plan: He has infiltrate easily seen on chest , today, with a modest left sided effusion. He does not have (+) cultures, agree with empiric antibiotics with his effusion, recurrent plugging and collapse of the left lung, and inability to get him weaned off the left chest tube. Will try to maximize his pulmonary hygiene, get him to water seal, and slowly work him off the chest tube. He has subcutaneous air that is seeking the path of least resistance. (5) Pneumothorax on left: Code(s): J93.9 - Pneumothorax, unspecified Status: Acute Assessment and Plan: Left ptx occured after intubation, treated with chest tube #1 Jul 29, then replaced with another Jul 18; still has small air leak. Needs to continue suction, trals of decreasing suction, move towards water seal, repeat chest x-rays, and get his chest tube out. He is not a great caondidate for any type of chest curgery, and I believe that we can get his chest t
[2019-08-07] VITALS (23 sets, daily range): BP systolic 96–109; BP diastolic 55–88; PULSE 71–95; RESP 18–22; TEMP 36.3–36.9; O2SAT 91–99
[2019-08-07] MEDS: IPRATROPIUM BR 0.02% INH SOLN 0.5 MG/2.5 ML VIAL INHALATION ×4 (02:11→19:57)
[2019-08-07] MEDS: LEVALBUTEROL NEB 1.25 MG/3 ML 0.63 MG INHALATION ×4 (02:13→19:57)
[2019-08-07 04:32] LABS: Hematocrit 25.4 % (42.0-52.0); Hemoglobin 8.2 g/dL (14.0-18.0); Mean Corpuscular HGB Conc 32.3 g/dl (32-36); Mean Corpuscular Hemoglobin 29.3 pg (26-34); Mean Corpuscular Volume 90.7 fl (80-100); Mean Platelet Volume 9.2 fl (7.4-10.4); Platelet Count Result 355 k/mm3 (150-375); Red Cell Distribution Width 16.2 % (11.5-14.5); White Blood Count 8.3 K/mm3 (4.5-10.0)
[2019-08-07 04:49] LABS: Blood Urea Nitrogen 20 mg/dL (9-20); Calcium 7.7 mg/dL (8.4-10.2); Carbon Dioxide 34 mmol/L (22-30); Chloride 100 mmol/L (98-107); Estimated Glomerular Filt Rate > 60; Glucose 83 mg/dL (75-110); Potassium 2.9 mmol/L (3.4-5.0); Sodium 133 mmol/L (137-145)
[2019-08-07] MEDS: HEPARIN SODIUM 5,000 UNITS/ML VIAL 5000 UNITS SUB-Q ×3 (05:16→21:49)
--- NOTE | 2019-08-07 07:55 | PM.IMPN ---
Progress Note: A&P Assessment and Plan (1) Acute respiratory failure: Qualifiers: Respiratory failure complication: unspecified whether with hypoxia or hypercapnia Qualified Code(s): J96.00 - Acute respiratory failure, unspecified whether with hypoxia or hypercapnia Code(s): J96.00 - Acute respiratory failure, unspecified whether with hypoxia or hypercapnia Status: Acute Assessment and Plan: Probably result of pneumonia as well as pneumothorax. Successfully extubated on 08/03/2019. Pulmonology consulted yesterday due to recurrent problems with collapse of left lung and desaturation. Discussed with Dr. Araiza. High-resolution chest CT yesterday with bilateral pneumonia worse on left, moderate emphysema, small pleural effusions most likely exudate and left chest tube in place. Most likely has had mucus plugging. Currently on 2 L of oxygen. Will continue nebulizer treatments and incentive spirometer if he will use. Symbicort added. Continue nebulizer treatments and Pulmozyme. Continue IV Zosyn and vancomycin. Also remains on IV Solu-Cortef. Telemetry reviewed on 08/07/2019 with sinus rhythm. Will continue to monitor. (2) Septic shock: Code(s): A41.9 - Sepsis, unspecified organism; R65.21 - Severe sepsis with septic shock Status: Acute Assessment and Plan: Criteria met on admission. 1 of 2 blood cultures now positive for gram-negative bacilli with final results indicating unable to identify. Urine culture negative. Sputum culture now with yeast. MRSA nasal swab negative. Will continue current IV antibiotics as noted above. Blood pressure reviewed on 08/07/2019 with readings variable but acceptable. WBC normal today. Continue treatment of acute issues as noted. (3) Pneumonia: Qualifiers: Pneumonia type: due to unspecified organism Laterality: bilateral Lung location: unspecified part of lung Qualified Code(s): J18.9 - Pneumonia, unspecified organism Code(s): J18.9 - Pneumonia, unspecified organism Status: Acute Assessment and Plan: CT chest on 08/06/2019 as noted above. Will continue IV antibiotics along with respiratory treatments as noted above. Appreciate input from pulmonology. WBC normal today. (4) Pneumothorax on left: Code(s): J93.9 - Pneumothorax, unspecified Status: Acute Assessment and Plan: Likely caused during left IJ central line placement in ER. General surgery consulted and appreciate help. Chest tube replaced by Dr. Cuellar on 08/01/2019 due to redevelopment of pneumothorax after migration of original chest tube. Suction equipment exchanged on 08/05/2019. Chest tube remains in place with no pneumothorax on chest x-ray and CT chest from 08/06/2019. No changes overnight. Management per surgery. (5) Hypokalemia: Code(s): E87.6 - Hypokalemia Status: Acute Assessment and Plan: Potassium decreased to 2.9 today. Will give IV replacement. Recheck later today. Continue to monitor and replace as needed. Will also continue to monitor magnesium with level 2.2 today. (6) Hypophosphatemia: Code(s): E83.39 - Other disorders of phosphorus metabolism Status: Acute Assessment and Plan: Phosphorus normal at 3.3 on 08/06/2019. Will continue to monitor periodically. (7) Normocytic anemia: Code(s): D64.9 - Anemia, unspecified Status: Acute Assessment and Plan: Acute on chronic with hemoglobin down to 6.9 on 08/02/2019 with transfusion of 1 unit PRBC. Hemoglobin decreased back down to 8.2 today. No active signs bleeding. Will monitor and transfuse as needed. (8) Metabolic acidosis: Code(s): E87.2 - Acidosis Status: Resolved Assessment and Plan: Secondary to septic shock and hypoperfusion. Now resolved. Does have alkalosis. Continue treatment of acute issues as noted. (9) COPD (chronic obstructive pulmonary disease): Qualifiers:
[2019-08-07] MEDS: PANTOPRAZOLE SODIUM IV 40 MG VIAL IV PUSH (08:44)
[2019-08-07] MEDS: DIVALPROEX SODIUM SPRINKLE 125 MG CAP.DR 250 MG PO ×2 (08:44→18:36)
[2019-08-07] MEDS: HYDROCORTISONE SODIUM SUCCINATE 100 MG/2 ML VIAL 50 MG IV PUSH (08:44)
--- NOTE | 2019-08-07 10:59 | PM.PNGS ---
Progress Note: A&P Assessment and Plan (1) Pneumothorax on left: Code(s): J93.9 - Pneumothorax, unspecified Status: Acute Assessment and Plan: Chest tube in good position. Patient looks better. Continue chest tube to Pleur-Evac suction for now. (2) Acute respiratory failure: Qualifiers: Respiratory failure complication: unspecified whether with hypoxia or hypercapnia Qualified Code(s): J96.00 - Acute respiratory failure, unspecified whether with hypoxia or hypercapnia Code(s): J96.00 - Acute respiratory failure, unspecified whether with hypoxia or hypercapnia Status: Acute Assessment and Plan: Still some problems with volume loss and mucous plugging. , car worker, seeing patient and instituting changes. Looks better today. (3) COPD (chronic obstructive pulmonary disease): Qualifiers: COPD type: unspecified COPD Qualified Code(s): J44.9 - Chronic obstructive pulmonary disease, unspecified Code(s): J44.9 - Chronic obstructive pulmonary disease, unspecified Status: Chronic Subjective Subjective Date/Time Seen: 08/07/19 10:59 More alert, less agitated, eating breakfast readily. Remains nonverbal Review of Systems Review of Systems: ROS unobtainable: unobtainable due to mental status Exam Chest: Chest palpation & inspection: other ( chest tube dressing dry and intact; subcutaneous emphysema) Resp: Auscultation: rhonchi and other ( subcutaneous emphysema) Objective Data Vital Signs Vital Signs: Vital Signs - 24 hr 08/06/19 11:42 08/06/19 12:00 08/06/19 14:00 Temperature 36.7 C Pulse Rate 84 80 82 Respiratory Rate 20 Blood Pressure 102/55 L Pulse Oximetry 100 100 08/06/19 14:03 08/06/19 14:14 08/06/19 16:00 Temperature 36.6 C Pulse Rate 96 83 89 Respiratory Rate 20 20 22 H Blood Pressure 121/59 L Pulse Oximetry 98 08/06/19 16:25 08/06/19 18:00 08/06/19 18:11 Temperature Pulse Rate 71 Respiratory Rate Blood Pressure Pulse Oximetry 100 97 08/06/19 19:29 08/06/19 20:00 08/06/19 20:45 Temperature 36.5 C Pulse Rate 81 73 Respiratory Rate 20 Blood Pressure 99/53 L Pulse Oximetry 100 97 95 08/06/19 20:46 08/06/19 20:56 08/06/19 22:00 Temperature Pulse Rate 85 87 78 Respiratory Rate 20 20 Blood Pressure Pulse Oximetry 08/07/19 00:00 08/07/19 02:00 08/07/19 02:14 Temperature 36.6 C Pulse Rate 95 76 79 Respiratory Rate 20 20 Blood Pressure 103/55 L Pulse Oximetry 96 08/07/19 02:21 08/07/19 04:00 08/07/19 06:00 Temperature Pulse Rate 77 78 79 Respiratory Rate 20 Blood Pressure Pulse Oximetry 96 08/07/19 08:23 08/07/19 09:14 08/07/19 09:25 Temperature 36.3 C L Pulse Rate 93 83 82 Respiratory Rate 22 H 20 20 Blood Pressure 109/62 Pulse Oximetry 99 94 Intake/Output Intake/Output: Intake & Output 08/04/19 08/05/19 08/06/19 08/07/19 23:59 23:59 23:59 23:59 Intake Total 930 1450 1155 300 Output Total 2930 2620 960 Balance -2000 -1170 195 300 Meds/Results Medications: Active Medications Generic Name Dose Route Start Last Admin Trade Name Freq PRN Reason Stop Dose Admin Budesonide/Formoterol Fumarate 2 puff 08/06/19 20:00 08/07/19 09:14 Symbicort 160-4.5 Mcg (*Sp) Inhaler INHALATION 2 puff Q12HRT AMY Administration Divalproex Sodium 250 mg 08/04/19 17:00 08/07/19 08:44 Depakote Sprinkle PO 250 mg BID AMY Administration Heparin Sodium (Porcine) 5,000 units 07/31/19 14:00 08/07/19 05:16 Heparin Sodium SUB-Q 5,000 units Q8HR AMY Administration Hydrocortisone Sodium Succinate 50 mg 08/04/19 09:00 08/07/19 08:44 Solu-Cortef IV PUSH 50 mg DAILY AMY Administration Piperacillin Sod/Tazobactam Sod 2.25 gm in 50 mls @ 100 mls/hr 07/30/19 22:00 08/07/19 05:45 Zosyn 2.25 Gm/D5w 50 Ml IVPB Infused Q6HR AMY Infusion Vancomycin HCl 1,000 mg in 250 ml
--- NOTE | 2019-08-07 21:55 | P.PNPL_ITS ---
Progress Note: A&P Assessment and Plan (1) Acute respiratory failure: Qualifiers: Respiratory failure complication: unspecified whether with hypoxia or hypercapnia Qualified Code(s): J96.00 - Acute respiratory failure, unspecified whether with hypoxia or hypercapnia Code(s): J96.00 - Acute respiratory failure, unspecified whether with hypoxia or hypercapnia Status: Acute Assessment and Plan: July 29 -- sepsis with acute respiratory failure attributed to pneumonia, required intubation and Left IJ line with atrogenic left pneumothorax, left chest tube, new chest tube placed July 31; extubated Aug 02; now with recurrent episodes of left lung plugging with increased O2 requirements. Chest tube is functional, has small air leak. High res chest CT shows significant emphysema, pneumonia in both bases Left > than Right with the left chest tube and a small effusion that appears to be an exudate, the volume of fluid is too small to tap. I recommend continuing antibiotics for treatment, bronchodilators, and add controller meds with Symbicort. We will wean his O2 as tolerated. He needs higher amounts when he has plugging and atelectasis. (2) COPD (chronic obstructive pulmonary disease): Qualifiers: COPD type: unspecified COPD Qualified Code(s): J44.9 - Chronic obstructive pulmonary disease, unspecified Code(s): J44.9 - Chronic obstructive pulmonary disease, unspecified Status: Chronic Assessment and Plan: Has a history of COPD, no longer smoking; continue brochodailtros, Incentive spirometer, Pulmozyme, deep breathing. Cannot ambulate too easily with chest tube taped to his left side. (3) Alkalosis: Code(s): E87.3 - Alkalosis Status: Acute Assessment and Plan: He has a metabolic and respiratory alkalosis; pH remains 7.52 with increased respiratory rate, and his A-a gradient is greatly increased. This is worrisome for a PE. This is not going to show up on a CXR. His plain CXR has been improving slowly, still has subcutaneous emphysema however lungs are inflated. Will CT scan lung evaluate for plugging; there is not evidence of a pulmonary embolus. . (4) Pneumonia: Qualifiers: Laterality: bilateral Lung location: unspecified part of lung Pneumonia type: due to unspecified organism Qualified Code(s): J18.9 - Pneumonia, unspecified organism Code(s): J18.9 - Pneumonia, unspecified organism Status: Acute Assessment and Plan: He has infiltrate easily seen on chest , today, with a modest left sided effusion. He does not have (+) cultures, agree with empiric antibiotics with his effusion, recurrent plugging and collapse of the left lung, and inability to get him weaned off the left chest tube. Will try to maximize his pulmonary hygiene, get him to water seal, and slowly work him off the chest tube. He has subcutaneous air that is seeking the path of least resistance. (5) Pneumothorax on left: Code(s): J93.9 - Pneumothorax, unspecified Status: Acute Assessment and Plan: Left ptx occured after intubation, treated with chest tube
[2019-08-08] VITALS (16 sets, daily range): BP systolic 93–109; BP diastolic 49–81; PULSE 73–95; RESP 14–26; TEMP 36.1–37.3; O2SAT 92–99
[2019-08-08] MEDS: IPRATROPIUM BR 0.02% INH SOLN 0.5 MG/2.5 ML VIAL INHALATION ×4 (01:35→20:29)
[2019-08-08] MEDS: LEVALBUTEROL NEB 1.25 MG/3 ML 0.63 MG INHALATION ×4 (01:35→20:29)
[2019-08-08 04:40] LABS: Hematocrit 27.9 % (42.0-52.0); Hemoglobin 8.7 g/dL (14.0-18.0); Mean Corpuscular HGB Conc 31.2 g/dl (32-36); Mean Corpuscular Hemoglobin 28.8 pg (26-34); Mean Corpuscular Volume 92.4 fl (80-100); Mean Platelet Volume 9.2 fl (7.4-10.4); Platelet Count Result 361 k/mm3 (150-375); Red Blood Count 3.02 M/mm3 (4.6-6.20); Red Cell Distribution Width 16.4 % (11.5-14.5); White Blood Count 9.8 K/mm3 (4.5-10.0)
[2019-08-08 05:01] LABS: Blood Urea Nitrogen 15 mg/dL (9-20); Carbon Dioxide 32 mmol/L (22-30); Chloride 102 mmol/L (98-107); Estimated Glomerular Filt Rate > 60; Glucose 89 mg/dL (75-110); Magnesium 2.2 mg/dL (1.6-2.3); Phosphorus 2.5 mg/dL (2.5-4.5); Potassium 3.2 mmol/L (3.4-5.0); Sodium 134 mmol/L (137-145)
[2019-08-08 05:17] LABS: Vancomycin Trough 23.3 ug/mL (10.0-20.0)
[2019-08-08] MEDS: HEPARIN SODIUM 5,000 UNITS/ML VIAL 5000 UNITS SUB-Q ×3 (05:39→21:43)
[2019-08-08] MEDS: PANTOPRAZOLE SODIUM IV 40 MG VIAL IV PUSH (08:30)
[2019-08-08] MEDS: DIVALPROEX SODIUM SPRINKLE 125 MG CAP.DR 250 MG PO ×2 (08:30→17:17)
[2019-08-08] MEDS: HYDROCORTISONE SODIUM SUCCINATE 100 MG/2 ML VIAL 50 MG IV PUSH (08:30)
--- NOTE | 2019-08-08 10:23 | PM.PNGS ---
Progress Note: A&P Assessment and Plan (1) Pneumothorax on left: Code(s): J93.9 - Pneumothorax, unspecified Status: Acute Assessment and Plan: Chest x-ray this morning showed no pneumothorax. Chest tube remains in good position. Will keep the chest tube to -20 cm suction today and consider putting it to water seal tomorrow if he continues to do well. Will repeat a chest x-ray tomorrow morning. (2) Acute respiratory failure: Qualifiers: Respiratory failure complication: unspecified whether with hypoxia or hypercapnia Qualified Code(s): J96.00 - Acute respiratory failure, unspecified whether with hypoxia or hypercapnia Code(s): J96.00 - Acute respiratory failure, unspecified whether with hypoxia or hypercapnia Status: Acute Assessment and Plan: Pulmonology consulted and following the patient. Continues to improve and now weaned off of O2. (3) COPD (chronic obstructive pulmonary disease): Qualifiers: COPD type: unspecified COPD Qualified Code(s): J44.9 - Chronic obstructive pulmonary disease, unspecified Code(s): J44.9 - Chronic obstructive pulmonary disease, unspecified Status: Chronic Additional Plan Discussed the patient's case and plan of care with Dr. Cuellar. Subjective Subjective Date/Time Seen: 08/08/19 09:20 Interval history: Patient appears alert this morning and eating breakfast. Still difficult to get answers from the patient but he was able to tell me today that his chest hurt near the chest tube. Review of Systems Review of Systems: ROS unobtainable: unobtainable due to mental status Exam Const: General: no acute distress, alert and awake Resp: Effort & Inspection: normal respiratory effort and other (Chest tube dressing dry and intact. No air leak.) Auscultation: clear to auscultation bilaterally and diminished lung sounds on the left in the lower lung berg Other: Subcutaneous emphysema Psych: Insight: Poor insight present (Psych) Judgement: Poor judgement present (Psych) Objective Data Vital Signs Vital Signs: Vital Signs - 24 hr 08/07/19 12:00 08/07/19 12:32 08/07/19 14:00 Temperature 36.7 C Pulse Rate 79 87 81 Respiratory Rate 20 Blood Pressure 96/58 L Pulse Oximetry 98 08/07/19 14:14 08/07/19 14:21 08/07/19 16:00 Temperature 36.9 C Pulse Rate 86 81 77 Respiratory Rate 20 20 20 Blood Pressure 108/88 Pulse Oximetry 97 08/07/19 18:00 08/07/19 19:32 08/07/19 19:58 Temperature 36.4 C L Pulse Rate 76 76 77 Respiratory Rate 18 18 Blood Pressure 96/56 L Pulse Oximetry 96 91 08/07/19 20:00 08/07/19 20:11 08/07/19 22:00 Temperature Pulse Rate 71 74 87 Respiratory Rate 18 Blood Pressure Pulse Oximetry 08/08/19 00:00 08/08/19 01:35 08/08/19 01:48 Temperature 36.6 C Pulse Rate 74 82 78 Respiratory Rate 20 18 18 Blood Pressure 108/81 Pulse Oximetry 99 08/08/19 02:00 08/08/19 04:00 08/08/19 04:47 Temperature 36.7 C Pulse Rate 79 82 95 Respiratory Rate 22 H Blood Pressure 106/51 L Pulse Oximetry 92 08/08/19 06:00 08/08/19 08:00 08/08/19 08:39 Temperature 37.3 C Pulse Rate 80 79 79 Respiratory Rate 26 H 18 Blood Pressure 97/52 L Pulse Oximetry 99 97 Intake/Output Intake/Output: Intake & Output 08/05/19 08/06/19 08/07/19 08/08/19 23:59 23:59 23:59 23:59 Intake Total 1450 1155 1670 150 Output Total 2620 960 1100 450 Balance -1170 195 570 -300 Meds/Results Medications: Active Medications Generic Name Dose Route Start Last Admin Trade Name Freq PRN Reason Stop Dose Admin Budesonide/Formoterol Fumarate 2 puff 08/06/19 20:00 08/07/19 19:58 Symbicort 160-4.5 Mcg (*Sp) Inhaler INHALATION 2 puff Q12HRT AMY Administration Divalproex Sodium 250 mg 08/04/19 17:00 08/08/19 08:30 Depakote Sprinkle PO 250 mg BID AMY Administration Heparin Sodium (Porcine) 5,000 units 07/31/19 14:00 08/08/19 05:39 He
[2019-08-08] MEDS: POTASSIUM CHLORIDE 20 MEQ TABLET 40 MEQ PO (13:02)
--- NOTE | 2019-08-08 13:28 | PM.IMPN ---
Progress Note: A&P Assessment and Plan (1) Acute respiratory failure: Qualifiers: Respiratory failure complication: unspecified whether with hypoxia or hypercapnia Qualified Code(s): J96.00 - Acute respiratory failure, unspecified whether with hypoxia or hypercapnia Code(s): J96.00 - Acute respiratory failure, unspecified whether with hypoxia or hypercapnia Status: Acute Assessment and Plan: Secondary to pneumonia and pneumothorax. Successfully extubated on 08/03/2019. Pulmonology consulted. Continue nebulizer treatments and Pulmozyme. Continue IV Zosyn and vancomycin. IV hydrocortisone (2) Septic shock: Code(s): A41.9 - Sepsis, unspecified organism; R65.21 - Severe sepsis with septic shock Status: Resolved (3) Pneumonia: Qualifiers: Pneumonia type: due to unspecified organism Laterality: bilateral Lung location: unspecified part of lung Qualified Code(s): J18.9 - Pneumonia, unspecified organism Code(s): J18.9 - Pneumonia, unspecified organism Status: Acute Assessment and Plan: CT chest on 08/06/2019 as noted above. Will continue IV antibiotics along with respiratory treatments as noted above. Dc Iv abx tomorrow after checking with respiratory team. Bc negative, sputum culture showing yeast. (4) Pneumothorax on left: Code(s): J93.9 - Pneumothorax, unspecified Status: Acute Assessment and Plan: Secondary to left IJ central line placement in ER. Chest tube replaced by Dr. Cuellar on 08/01/2019 due to redevelopment of pneumothorax after removal of original chest tube. No pneumothorax on recent chest x-ray and CT chest from 08/06/2019. (5) Hypokalemia: Code(s): E87.6 - Hypokalemia Status: Acute Assessment and Plan: Potassium decreased to 3.2 continue to replace. (6) Hypophosphatemia: Code(s): E83.39 - Other disorders of phosphorus metabolism Status: Acute Assessment and Plan: Phosphorus normal at 3.3 (7) Normocytic anemia: Code(s): D64.9 - Anemia, unspecified Status: Acute Assessment and Plan: Acute on chronic with hemoglobin down to 8.7 (8) Metabolic acidosis: Code(s): E87.2 - Acidosis Status: Resolved Assessment and Plan: Secondary to septic shock and hypoperfusion. Now resolved. (9) COPD (chronic obstructive pulmonary disease): Qualifiers: COPD type: unspecified COPD Qualified Code(s): J44.9 - Chronic obstructive pulmonary disease, unspecified Code(s): J44.9 - Chronic obstructive pulmonary disease, unspecified Status: Chronic Assessment and Plan: Moderate emphysema on CT chest. Pt is on symbicort and nebulisers (10) CHF (congestive heart failure): Qualifiers: Heart failure type: unspecified Heart failure chronicity: chronic Qualified Code(s): I50.9 - Heart failure, unspecified Code(s): I50.9 - Heart failure, unspecified Status: Chronic Assessment and Plan: Chronic and stable diastolic CHF (11) GERD (gastroesophageal reflux disease): Qualifiers: Esophagitis presence: esophagitis presence not specified Qualified Code(s): K21.9 - Gastro-esophageal reflux disease without esophagitis Code(s): K21.9 - Gastro-esophageal reflux disease without esophagitis Status: Acute Assessment and Plan: Continue IV Protonix. (12) DVT prophylaxis: Code(s): Z29.9 - Encounter for prophylactic measures, unspecified Status: Acute Assessment and Plan: Heparin subcutaneously. Subjective Date/time seen: 08/08/19 13:28 Interval history: Pt admitted with septic shock, left pneumothorax and COPD. Successfully extubated on 08/03/2019. Patient had been transferred from ICU to medical floor on 08/04/2019. Remains stable. Pt is confused history of dementia. Pt has chest tube in situ pt being followed by surgery team. Chest tube in situ hopeful rem
--- NOTE | 2019-08-08 13:37 | PC.NURSE ---
This patient, Garcia Goodwin, was received from [facility] on 08/08/19 at 1337. Personal belongings list checked and signed. Patient/family oriented to unit policies and routines. Report received from HIEU Tiwari.
--- NOTE | 2019-08-08 18:33 | PM.PNPUL ---
Progress Note: A&P Assessment and Plan (1) Acute respiratory failure: Qualifiers: Respiratory failure complication: unspecified whether with hypoxia or hypercapnia Qualified Code(s): J96.00 - Acute respiratory failure, unspecified whether with hypoxia or hypercapnia Code(s): J96.00 - Acute respiratory failure, unspecified whether with hypoxia or hypercapnia Status: Acute Assessment and Plan: July 29 -- sepsis, acute respiratory failure 2/2 pneumonia, tubed, Left IJ line with atrogenic left pneumothorax, L chest tube. July 31 -- new chest tube; Aug 02 -- extubated Recurrent episodes of left lung plugging with increased O2 requirements, improved, lower O2 requirements. functional, has small air leak. High res chest CT shows significant emphysema, pneumonia in both bases Left > than Right with the left chest tube and a small effusion that appears to be an exudate, the volume of fluid is too small to tap. I recommend continuing antibiotics for treatment, bronchodilators, and add controller meds with Symbicort. We will wean his O2 as tolerated. He needs higher amounts when he has plugging and atelectasis. (2) COPD (chronic obstructive pulmonary disease): Qualifiers: COPD type: unspecified COPD Qualified Code(s): J44.9 - Chronic obstructive pulmonary disease, unspecified Code(s): J44.9 - Chronic obstructive pulmonary disease, unspecified Status: Chronic Assessment and Plan: Has a history of COPD, no longer smoking; continue brochodilators, Incentive spirometer, Pulmozyme, deep breathing. Cannot ambulate too easily with chest tube taped to his left side. (3) Pneumonia: Qualifiers: Laterality: bilateral Lung location: unspecified part of lung Pneumonia type: due to unspecified organism Qualified Code(s): J18.9 - Pneumonia, unspecified organism Code(s): J18.9 - Pneumonia, unspecified organism Status: Acute Assessment and Plan: He has infiltrate easily seen on chest , today, with a modest left sided effusion. He does not have (+) cultures, agree with empiric antibiotics with his effusion, recurrent plugging and collapse of the left lung, and inability to get him weaned off the left chest tube. Will try to maximize his pulmonary hygiene, get him to water seal, and slowly work him off the chest tube. He has subcutaneous air that is seeking the path of least resistance. (4) Pneumothorax on left: Code(s): J93.9 - Pneumothorax, unspecified Status: Acute Assessment and Plan: Left ptx occured after intubation, treated with chest tube #1 Jul 16, then replaced with another Jul 18; still has small air leak. Needs to continue suction, trals of decreasing suction, move towards water seal, repeat chest x-rays, and get his chest tube out. He is not a great caondidate for any type of chest curgery, and I believe that we can get his chest tube out at [facility]. Increase activity, pulmonary hygiene, wean O2. He does not appear to need any surgical intervention now, and we can use conservative management to try to get his pneumothorax to seal over, get the chest tube out. Subjective Date/time seen: 08/08/19 18:33 69 yo man is seen in follow up for persistent left ptx, improved iwth O2 weaned down to 2 L/min, now transferred to [facility] medical room 248. His saturatoin is running 91-97%. Not in distress. CXR today 08/07 same No significant change accou
[2019-08-09] VITALS (9 sets, daily range): BP systolic 110–114; BP diastolic 55–58; PULSE 68–93; RESP 16–21; TEMP 36.2–36.4; O2SAT 93–96
[2019-08-09] MEDS: LEVALBUTEROL NEB 1.25 MG/3 ML 0.63 MG INHALATION ×4 (02:07→20:22)
[2019-08-09] MEDS: IPRATROPIUM BR 0.02% INH SOLN 0.5 MG/2.5 ML VIAL INHALATION ×4 (02:08→20:22)
[2019-08-09] MEDS: HEPARIN SODIUM 5,000 UNITS/ML VIAL 5000 UNITS SUB-Q ×3 (05:50→20:50)
[2019-08-09 05:58] LABS: Hematocrit 27.1 % (42.0-52.0); Hemoglobin 8.5 g/dL (14.0-18.0); Mean Corpuscular HGB Conc 31.4 g/dl (32-36); Mean Corpuscular Hemoglobin 28.5 pg (26-34); Mean Corpuscular Volume 90.9 fl (80-100); Mean Platelet Volume 9.1 fl (7.4-10.4); Platelet Count Result 390 k/mm3 (150-375); Red Blood Count 2.98 M/mm3 (4.6-6.20); Red Cell Distribution Width 16.7 % (11.5-14.5); White Blood Count 8.9 K/mm3 (4.5-10.0)
[2019-08-09 06:06] LABS: Blood Urea Nitrogen 15 mg/dL (9-20); Calcium 7.9 mg/dL (8.4-10.2); Carbon Dioxide 30 mmol/L (22-30); Chloride 104 mmol/L (98-107); Estimated Glomerular Filt Rate > 60; Glucose 81 mg/dL (75-110); Potassium 3.5 mmol/L (3.4-5.0); Sodium 137 mmol/L (137-145)
[2019-08-09 06:20] LABS: Vancomycin Trough 11.8 ug/mL (10.0-20.0)
[2019-08-09] MEDS: PANTOPRAZOLE SODIUM IV 40 MG VIAL IV PUSH (09:15)
[2019-08-09] MEDS: HYDROCORTISONE SODIUM SUCCINATE 100 MG/2 ML VIAL 50 MG IV PUSH (11:17)
[2019-08-09] MEDS: DIVALPROEX SODIUM SPRINKLE 125 MG CAP.DR 250 MG PO ×2 (11:19→17:28)
--- NOTE | 2019-08-09 12:04 | PM.IMPN ---
Progress Note: A&P Assessment and Plan (1) Acute respiratory failure: Qualifiers: Respiratory failure complication: unspecified whether with hypoxia or hypercapnia Qualified Code(s): J96.00 - Acute respiratory failure, unspecified whether with hypoxia or hypercapnia Code(s): J96.00 - Acute respiratory failure, unspecified whether with hypoxia or hypercapnia Status: Acute Assessment and Plan: Secondary to pneumonia and pneumothorax. Successfully extubated on 08/03/2019. Pulmonology consulted. Continue nebulizer treatments and Pulmozyme. Can stop iv zosyn and vancomycin. wean off iv hydrocortisone. (2) Septic shock: Code(s): A41.9 - Sepsis, unspecified organism; R65.21 - Severe sepsis with septic shock Status: Resolved (3) Pneumonia: Qualifiers: Pneumonia type: due to unspecified organism Laterality: bilateral Lung location: unspecified part of lung Qualified Code(s): J18.9 - Pneumonia, unspecified organism Code(s): J18.9 - Pneumonia, unspecified organism Status: Acute Assessment and Plan: CT chest on 08/06/2019 as noted above. Will continue IV antibiotics along with respiratory treatments as noted above. Dc Iv abx today. Bc negative, sputum culture showing yeast. (4) Pneumothorax on left: Code(s): J93.9 - Pneumothorax, unspecified Status: Acute Assessment and Plan: Secondary to left IJ central line placement in ER. Chest tube replaced by Dr. Cuellar on 08/01/2019 due to redevelopment of pneumothorax after removal of original chest tube. No pneumothorax on recent chest x-ray and CT chest from 08/06/2019. (5) Hypokalemia: Code(s): E87.6 - Hypokalemia Status: Resolved Assessment and Plan: Potassium normalised. (6) Hypophosphatemia: Code(s): E83.39 - Other disorders of phosphorus metabolism Status: Acute Assessment and Plan: Phosphorus normal at 3.3 (7) Normocytic anemia: Code(s): D64.9 - Anemia, unspecified Status: Acute Assessment and Plan: Acute on chronic with hemoglobin down to 8.5 (8) Metabolic acidosis: Code(s): E87.2 - Acidosis Status: Resolved Assessment and Plan: Secondary to septic shock and hypoperfusion. Now resolved. (9) COPD (chronic obstructive pulmonary disease): Qualifiers: COPD type: unspecified COPD Qualified Code(s): J44.9 - Chronic obstructive pulmonary disease, unspecified Code(s): J44.9 - Chronic obstructive pulmonary disease, unspecified Status: Chronic Assessment and Plan: Moderate emphysema on CT chest. Pt is on symbicort and nebulisers (10) CHF (congestive heart failure): Qualifiers: Heart failure type: unspecified Heart failure chronicity: chronic Qualified Code(s): I50.9 - Heart failure, unspecified Code(s): I50.9 - Heart failure, unspecified Status: Chronic Assessment and Plan: Chronic and stable diastolic CHF (11) GERD (gastroesophageal reflux disease): Qualifiers: Esophagitis presence: esophagitis presence not specified Qualified Code(s): K21.9 - Gastro-esophageal reflux disease without esophagitis Code(s): K21.9 - Gastro-esophageal reflux disease without esophagitis Status: Acute Assessment and Plan: transition to oral Protonix. (12) DVT prophylaxis: Code(s): Z29.9 - Encounter for prophylactic measures, unspecified Status: Acute Assessment and Plan: Heparin subcutaneously. Subjective Date/time seen: 08/09/19 12:04 Interval history: Pt admitted with septic shock, left pneumothorax and COPD. Successfully extubated on 08/03/2019. Patient had been transferred from ICU to medical floor on 08/04/2019. Remains stable. Pt is confused history of dementia. Pt has chest tube in situ pt being followed by surgery team. Chest tube in situ hopeful removal soon. Surgery considering chest tube to w
--- NOTE | 2019-08-09 12:56 | PM.PNGS ---
Progress Note: A&P Assessment and Plan (1) Pneumothorax on left: Code(s): J93.9 - Pneumothorax, unspecified Status: Acute Assessment and Plan: Chest tube placed to water seal. On water seal, chest x-ray is unchanged. No evidence of pneumothorax. Will continue water seal suction for now. Chest tube remains in good position. (2) COPD (chronic obstructive pulmonary disease): Qualifiers: COPD type: unspecified COPD Qualified Code(s): J44.9 - Chronic obstructive pulmonary disease, unspecified Code(s): J44.9 - Chronic obstructive pulmonary disease, unspecified Status: Chronic (3) Acute respiratory failure: Qualifiers: Respiratory failure complication: unspecified whether with hypoxia or hypercapnia Qualified Code(s): J96.00 - Acute respiratory failure, unspecified whether with hypoxia or hypercapnia Code(s): J96.00 - Acute respiratory failure, unspecified whether with hypoxia or hypercapnia Status: Acute Assessment and Plan: Persistent problems with mucus plugging left chest. Patient also rotates that side which makes it more difficult to assess and difficult to clear the plugging. Subjective Subjective Date/Time Seen: 08/09/19 12:56 Awake and alert. Nods to questions. Mental status continues to improve. No obvious problems with breathing. Review of Systems Review of Systems: ROS unobtainable: Yes unobtainable due to mental status Exam Const: General: comfortable and no acute distress Nutritional Appearance: thin Orientation/consciousness: confusion Chest: Chest palpation & inspection: other ( Left chest tube dressing dry and intact. Minimal subcutaneous emphysema.) Other: No air leak noted. Resp: Effort & Inspection: normal respiratory effort, no cough and no retractions Auscultation: rhonchi Objective Data Vital Signs Vital Signs: Vital Signs - 24 hr 08/08/19 14:00 08/08/19 14:54 08/08/19 15:03 Temperature 36.2 C L Pulse Rate 92 84 88 Respiratory Rate 14 18 18 Blood Pressure 94/54 L Pulse Oximetry 93 08/08/19 20:29 08/08/19 20:38 08/08/19 21:14 Temperature 36.1 C L Pulse Rate 88 87 80 Respiratory Rate 20 20 16 Blood Pressure 93/49 L Pulse Oximetry 92 93 08/09/19 02:08 08/09/19 08:33 03/26/20 08:43 Temperature Pulse Rate 68 90 92 Respiratory Rate 16 18 18 Blood Pressure Pulse Oximetry 93 93 Intake/Output Intake/Output: Intake & Output 08/06/19 08/07/19 08/08/19 08/09/19 23:59 23:59 23:59 23:59 Intake Total 1155 1670 1070 500 Output Total 960 1100 600 200 Balance 195 570 470 300 Meds/Results Medications: Active Medications Generic Name Dose Route Start Last Admin Trade Name Freq PRN Reason Stop Dose Admin Budesonide/Formoterol Fumarate 2 puff 08/06/19 20:00 08/09/19 08:33 Symbicort 160-4.5 Mcg (*Sp) Inhaler INHALATION 2 puff Q12HRT AMY Administration Divalproex Sodium 250 mg 08/04/19 17:00 08/09/19 11:19 Depakote Sprinkle PO 250 mg BID AMY Administration Heparin Sodium (Porcine) 5,000 units 07/31/19 14:00 08/09/19 05:50 Heparin Sodium SUB-Q 5,000 units Q8HR AMY Administration Hydrocortisone Sodium Succinate 25 mg 08/10/19 09:00 Solu-Cortef IV PUSH DAILY AMY Ipratropium [place] 0.5 mg 07/31/19 14:00 08/09/19 08:32 Atrovent Neb INHALATION 0.5 mg Q6HRT AMY Administration Levalbuterol HCl 0.63 mg 07/31/19 14:00 08/09/19 08:31 Xopenex 1.25 Mg/3 Ml INHALATION 0.63 mg Q6HRT AMY Administration Morphine Sulfate 2 mg 08/04/19 07:40 Morphine Sulfate Inj IV PUSH Q4H PRN Pain Rated 7-10 Ondansetron HCl 4 mg 07/30/19 18:19 Zofran Inj IV PUSH Q4H PRN Nausea Radiology Results: ITS Impressions Abdomen X-Ray 07/31/19 09:05 IMPRESSION: NG tube in distal body of stomach High Resolution CT 08/06/19 16:39 IMPRESSION: 1. Small pleural effusions, left worse than ri
--- NOTE | 2019-08-09 20:52 | PM.PNPUL ---
Progress Note: A&P Assessment and Plan (1) Acute respiratory failure: Qualifiers: Respiratory failure complication: unspecified whether with hypoxia or hypercapnia Qualified Code(s): J96.00 - Acute respiratory failure, unspecified whether with hypoxia or hypercapnia Code(s): J96.00 - Acute respiratory failure, unspecified whether with hypoxia or hypercapnia Status: Acute Assessment and Plan: July 29 -- sepsis, acute respiratory failure 2/2 pneumonia, tubed, Left IJ line with atrogenic left pneumothorax, L chest tube. July 31 -- new chest tube; Aug 02 -- extubated Recurrent episodes of left lung plugging with increased O2 requirements, improved, lower O2 requirements. Now on water seal for Left ptx (2) COPD (chronic obstructive pulmonary disease): Qualifiers: COPD type: unspecified COPD Qualified Code(s): J44.9 - Chronic obstructive pulmonary disease, unspecified Code(s): J44.9 - Chronic obstructive pulmonary disease, unspecified Status: Chronic Assessment and Plan: Has a history of COPD, no longer smoking; continue brochodilators, Incentive spirometer, Pulmozyme, deep breathing. (3) Pneumonia: Qualifiers: Laterality: bilateral Lung location: unspecified part of lung Pneumonia type: due to unspecified organism Qualified Code(s): J18.9 - Pneumonia, unspecified organism Code(s): J18.9 - Pneumonia, unspecified organism Status: Acute Assessment and Plan: Small infiltrate v atelectasis left base today's CXR. (4) Pneumothorax on left: Code(s): J93.9 - Pneumothorax, unspecified Status: Acute Assessment and Plan: Resolved. Now on water seal. CXR pendig for tomorrow. Subjective Date/time seen: 08/09/19 20:52 69 yo man is seen in follow up for persistent left ptx, improved, O2 at 1.5 L/min, sat is 92-94%. In room 248. Not in distress.Now on water seal. CXR today 08/08 Decreased left lung volume accentuated by leftward rotation. Opacities in the left mid and lower lung zone consistent with small bilateral pleural effusion and associated atelectasis and/or pneumonia. No pneumothorax. Right lung is clear with increased lucency in the lower lung zone likely related to emphysema better appreciated on prior CT. No pulmonary edema or right-sided pleural effusion. Heart size is normal. Subcutaneous emphysema at the neck and left chest wall. There is also mild pneumomediastinum. IMPRESSION: 1. No pneumothorax. 2. Decreased left lung volume with persistent opacities in the mid and lower lung zone which could represent atelectasis and/or pneumonia. 3. Small left pleural effusion. 4. Emphysema. Review of Systems Review of Systems: All systems reviewed & are unremarkable except as noted in HPI and below Exam Narrative: Exam Narrative: Appears chronically ill, mild dyspnea, no acute distress. Left IJ Central line. Transparent dressing. Const: General: no acute distress HENMT: Other: edentulous, moist oral membranes; no erythema. Eyes: Other: His pupils appear equal; exam is limited by patient cooperation. He says that he had a right eye injury when he was young. Neck: Neck: no JVD Chest: Other: Chest exam appears normal. Decreased breath sounds both bases. Resp: Other: Not performed; patient would not allow me to touch him. Cardio: Other: regular s1s2 GI: Other: not performed Skin: Other: ecchymoses on arms Neuro: General: No gait normal (not walking; has chest tube with 20 cm water adn small air leak. ) Speech: No normal speech (speaks quickly, says No before question is asked, abnormal behavior) Extrem: Other: bilateral below the knee a
[2019-08-10] VITALS (13 sets, daily range): BP systolic 107–123; BP diastolic 53–78; PULSE 77–102; RESP 16–20; TEMP 36.3–37.2; O2SAT 91–97
[2019-08-10] MEDS: IPRATROPIUM BR 0.02% INH SOLN 0.5 MG/2.5 ML VIAL INHALATION ×4 (02:08→19:48)
[2019-08-10] MEDS: LEVALBUTEROL NEB 1.25 MG/3 ML 0.63 MG INHALATION ×4 (02:08→19:48)
[2019-08-10] MEDS: HEPARIN SODIUM 5,000 UNITS/ML VIAL 5000 UNITS SUB-Q ×3 (05:55→20:59)
[2019-08-10 05:56] LABS: Hematocrit 27.9 % (42.0-52.0); Hemoglobin 8.8 g/dL (14.0-18.0); Mean Corpuscular HGB Conc 31.5 g/dl (32-36); Mean Corpuscular Hemoglobin 29.4 pg (26-34); Mean Corpuscular Volume 93.3 fl (80-100); Mean Platelet Volume 9.2 fl (7.4-10.4); Platelet Count Result 365 k/mm3 (150-375); Red Blood Count 2.99 M/mm3 (4.6-6.20); Red Cell Distribution Width 16.9 % (11.5-14.5); White Blood Count 8.6 K/mm3 (4.5-10.0)
[2019-08-10 06:08] LABS: Blood Urea Nitrogen 16 mg/dL (9-20); Carbon Dioxide 31 mmol/L (22-30); Chloride 105 mmol/L (98-107); Estimated Glomerular Filt Rate > 60; Glucose 74 mg/dL (75-110); Potassium 3.4 mmol/L (3.4-5.0); Sodium 135 mmol/L (137-145)
--- NOTE | 2019-08-10 06:45 | PM.PNGS ---
Progress Note: A&P Assessment and Plan (1) Pneumothorax on left: Code(s): J93.9 - Pneumothorax, unspecified Status: Acute Assessment and Plan: Will leave chest tube to water seal this weekend. Check serial chest x-rays. If pneumothorax recurs, resume 20 cm water Pleur-Evac suction. Possibly remove chest tube next week. (2) COPD (chronic obstructive pulmonary disease): Qualifiers: COPD type: unspecified COPD Qualified Code(s): J44.9 - Chronic obstructive pulmonary disease, unspecified Code(s): J44.9 - Chronic obstructive pulmonary disease, unspecified Status: Chronic (3) Acute respiratory failure: Qualifiers: Respiratory failure complication: unspecified whether with hypoxia or hypercapnia Qualified Code(s): J96.00 - Acute respiratory failure, unspecified whether with hypoxia or hypercapnia Code(s): J96.00 - Acute respiratory failure, unspecified whether with hypoxia or hypercapnia Status: Acute Assessment and Plan: Persistent problems with mucus plugging left chest. Patient also rotates that side which makes it more difficult to assess and difficult to clear the plugging. Dr. Araiza following. May consider bronchoscopy. Subjective Subjective Date/Time Seen: 08/10/19 06:45 Very alert again this morning. Wanting to eat breakfast. Review of Systems Review of Systems: ROS unobtainable: Yes unobtainable due to mental status Neurologic: Reports confusion Psychiatric: Psychiatric: Reports confusion Exam Const: General: comfortable, no acute distress and confusion Nutritional Appearance: thin Orientation/consciousness: confusion Chest: Chest palpation & inspection: other ( Left chest tube dressing dry and intact. Minimal subcutaneous emphysema.) Other: No air leak noted. Resp: Effort & Inspection: normal respiratory effort, no cough, no retractions and no stridor Auscultation: rhonchi and No rub present Neuro: General: confusion Psych: Appearance: disheveled Affect: Irritable affect present Insight: Poor insight present (Psych) Judgement: Poor judgement present (Psych) Objective Data Vital Signs Vital Signs: Vital Signs - 24 hr 08/09/19 08:33 08/09/19 08:43 08/09/19 14:00 Temperature 36.4 C Pulse Rate 90 92 84 Respiratory Rate 18 18 21 H Blood Pressure 110/55 L Pulse Oximetry 93 93 08/09/19 14:14 08/09/19 14:25 08/09/19 20:22 Temperature Pulse Rate 83 86 93 Respiratory Rate 20 20 20 Blood Pressure Pulse Oximetry 94 08/09/19 20:32 08/09/19 21:46 08/10/19 02:08 Temperature 36.2 C L Pulse Rate 90 84 85 Respiratory Rate 20 16 18 Blood Pressure 114/58 L Pulse Oximetry 96 08/10/19 02:17 08/10/19 06:12 Temperature 36.3 C L Pulse Rate 89 90 Respiratory Rate 18 18 Blood Pressure 122/78 Pulse Oximetry 91 Intake/Output Intake/Output: Intake & Output 08/07/19 08/08/19 08/09/19 08/10/19 23:59 23:59 23:59 23:59 Intake Total 1670 1070 1275 240 Output Total 1100 600 450 150 Balance 570 470 825 90 Meds/Results Medications: Active Medications Generic Name Dose Route Start Last Admin Trade Name Freq PRN Reason Stop Dose Admin Budesonide/Formoterol Fumarate 2 puff 08/06/19 20:00 08/09/19 20:23 Symbicort 160-4.5 Mcg (*Sp) Inhaler INHALATION 2 puff Q12HRT [facility] Administration Divalproex Sodium 250 mg 08/04/19 17:00 08/09/19 17:28 Depakote Sprinkle PO 250 mg BID AMY Administration Heparin Sodium (Porcine) 5,000 units 07/31/19 14:00 08/10/19 05:55 Heparin Sodium SUB-Q 5,000 units Q8HR [facility] Administration Hydrocortisone Sodium Succinate 25 mg 08/10/19 09:00 Solu-Cortef IV PUSH DAILY [facility] Ipratropium [place] 0.5 mg 07/31/19 14:00 08/10/19 02:08 Atrovent Neb INHALATION 0.5 mg Q6HRT [facility] Administration Levalbuterol HCl 0.63 mg 07/31/19 14:00 08/10/19 02:08 Xopenex 1.25 Mg/3 Ml INHALATION 0.63 mg Q6HRT [facility] Administratio
--- NOTE | 2019-08-10 09:19 | PC.NURSE ---
Called pharmacy and requested 0900 dose of solu-cortef be sent to floor for administration.
[2019-08-10] MEDS: DIVALPROEX SODIUM SPRINKLE 125 MG CAP.DR 250 MG PO ×2 (09:30→18:18)
[2019-08-10] MEDS: HYDROCORTISONE SODIUM SUCCINATE 100 MG/2 ML VIAL 25 MG IV PUSH (09:40)
--- NOTE | 2019-08-10 11:45 | PCNFU ---
Nutrition Follow-Up Complete: Inadequate Protein Intake as related to wounds as evidenced by Deep Tissue PU Goal: Meet estimated energy needs Limited progress towards goal. Pt current nutrition is Minced & Moist Level 5/Heart Healthy. Nutrition recommendation: Agree Last recorded weight is 57 kg. Bowel Motility:+BM 08/09 Labs Reviewed:Na 135,Hct 27.9,Hgb 8.8 Meds Noted:Heparin Additional Notes: Multiple wounds noted. Patient has been refusing meals, intake 10-15% of trays. Diet supplements had been changed to Ensure Compact BID providing an additional 220kcals and 9 gms protein. Agree with diet orders and supplements. PO intake is encouraged. Monitoring: RD will monitor every 3 days.
--- NOTE | 2019-08-10 11:57 | PM.IMPN ---
Progress Note: A&P Assessment and Plan (1) Acute respiratory failure: Qualifiers: Respiratory failure complication: unspecified whether with hypoxia or hypercapnia Qualified Code(s): J96.00 - Acute respiratory failure, unspecified whether with hypoxia or hypercapnia Code(s): J96.00 - Acute respiratory failure, unspecified whether with hypoxia or hypercapnia Status: Acute Assessment and Plan: Secondary to pneumonia and pneumothorax. Successfully extubated on 08/03/2019. Pulmonology consulted. Continue nebulizer treatments and Pulmozyme. Continue to wean off iv hydrocortisone. (2) Septic shock: Code(s): A41.9 - Sepsis, unspecified organism; R65.21 - Severe sepsis with septic shock Status: Resolved (3) Pneumonia: Qualifiers: Pneumonia type: due to unspecified organism Laterality: bilateral Lung location: unspecified part of lung Qualified Code(s): J18.9 - Pneumonia, unspecified organism Code(s): J18.9 - Pneumonia, unspecified organism Status: Resolved Assessment and Plan: CT chest on 08/06/2019 as noted above. Bc negative, sputum culture showing yeast. (4) Pneumothorax on left: Code(s): J93.9 - Pneumothorax, unspecified Status: Acute Assessment and Plan: Secondary to left IJ central line placement in ER. Chest tube replaced by Dr. Cuellar on 08/01/2019 due to redevelopment of pneumothorax after removal of original chest tube. No pneumothorax on recent chest x-ray and CT chest from 08/06/2019. Continue water seal over the weekend. DC chest tube next week. (5) Hypokalemia: Code(s): E87.6 - Hypokalemia Status: Resolved Assessment and Plan: Potassium normalised. (6) Hypophosphatemia: Code(s): E83.39 - Other disorders of phosphorus metabolism Status: Acute Assessment and Plan: Phosphorus normal at 3.3 (7) Normocytic anemia: Code(s): D64.9 - Anemia, unspecified Status: Acute Assessment and Plan: Acute on chronic with hemoglobin down to 8.8 (8) Metabolic acidosis: Code(s): E87.2 - Acidosis Status: Resolved Assessment and Plan: Secondary to septic shock and hypoperfusion. Now resolved. (9) COPD (chronic obstructive pulmonary disease): Qualifiers: COPD type: unspecified COPD Qualified Code(s): J44.9 - Chronic obstructive pulmonary disease, unspecified Code(s): J44.9 - Chronic obstructive pulmonary disease, unspecified Status: Chronic Assessment and Plan: Moderate emphysema on CT chest. Pt is on symbicort and nebulisers (10) CHF (congestive heart failure): Qualifiers: Heart failure type: unspecified Heart failure chronicity: chronic Qualified Code(s): I50.9 - Heart failure, unspecified Code(s): I50.9 - Heart failure, unspecified Status: Chronic Assessment and Plan: Chronic and stable diastolic CHF (11) GERD (gastroesophageal reflux disease): Qualifiers: Esophagitis presence: esophagitis presence not specified Qualified Code(s): K21.9 - Gastro-esophageal reflux disease without esophagitis Code(s): K21.9 - Gastro-esophageal reflux disease without esophagitis Status: Acute Assessment and Plan: Transition to oral Protonix. (12) DVT prophylaxis: Code(s): Z29.9 - Encounter for prophylactic measures, unspecified Status: Acute Assessment and Plan: Heparin subcutaneously. Subjective Date/time seen: 08/10/19 11:57 Interval history: Pt admitted with septic shock, left pneumothorax and COPD. Successfully extubated on 08/03/2019. Patient had been transferred from ICU to medical floor on 08/04/2019. Remains stable. Pt is confused history of dementia. Pt has chest tube in situ pt being followed by surgery team. Chest tube is to water seal over the weekend, then hopefully removed. Review of Systems Review of Systems: All systems
[2019-08-11] VITALS (11 sets, daily range): BP systolic 107–114; BP diastolic 54–60; PULSE 84–96; RESP 16–24; TEMP 36.3–36.7; O2SAT 90–94
[2019-08-11] MEDS: LEVALBUTEROL NEB 1.25 MG/3 ML 0.63 MG INHALATION ×4 (01:10→20:35)
[2019-08-11] MEDS: IPRATROPIUM BR 0.02% INH SOLN 0.5 MG/2.5 ML VIAL INHALATION ×4 (01:10→20:35)
[2019-08-11] MEDS: HEPARIN SODIUM 5,000 UNITS/ML VIAL 5000 UNITS SUB-Q (05:24)
--- NOTE | 2019-08-11 08:50 | PC.NURSE ---
Patient seems very anxious and agitated. He is requesting that I do not finish my assessment at this time.
[2019-08-11] MEDS: DIVALPROEX SODIUM SPRINKLE 125 MG CAP.DR 250 MG PO (10:39)
--- NOTE | 2019-08-11 10:39 | PC.NURSE ---
Patient's medications are late due to patient refusing medications. He agreed to take the Depakote and then became very agitated and aggressive. Patient was yelling and stating that he does not want to take the rest of his medications at this time. I will notify Dr. Antony about patient refusing medications.
--- NOTE | 2019-08-11 11:30 | PC.NURSE ---
Patient is refusing to take the rest of his [address] Antony was notified.
--- NOTE | 2019-08-11 12:06 | PM.IMPN ---
Progress Note: A&P Assessment and Plan (1) Acute respiratory failure: Qualifiers: Respiratory failure complication: unspecified whether with hypoxia or hypercapnia Qualified Code(s): J96.00 - Acute respiratory failure, unspecified whether with hypoxia or hypercapnia Code(s): J96.00 - Acute respiratory failure, unspecified whether with hypoxia or hypercapnia Status: Acute Assessment and Plan: Secondary to pneumonia and pneumothorax. Successfully extubated on 08/03/2019. Pulmonology consulted. Continue nebulizer treatments and Pulmozyme. Continue to wean off iv hydrocortisone. change to oral prednisone (2) Septic shock: Code(s): A41.9 - Sepsis, unspecified organism; R65.21 - Severe sepsis with septic shock Status: Resolved (3) Pneumonia: Qualifiers: Pneumonia type: due to unspecified organism Laterality: bilateral Lung location: unspecified part of lung Qualified Code(s): J18.9 - Pneumonia, unspecified organism Code(s): J18.9 - Pneumonia, unspecified organism Status: Resolved Assessment and Plan: CT chest on 08/06/2019 as noted above. Bc negative, sputum culture showing yeast. (4) Pneumothorax on left: Code(s): J93.9 - Pneumothorax, unspecified Status: Acute Assessment and Plan: Secondary to left IJ central line placement in ER. Chest tube replaced by Dr. Cuellar on 08/01/2019 due to redevelopment of pneumothorax after removal of original chest tube. No pneumothorax on recent chest x-ray and CT chest from 08/06/2019. Continue water seal over the weekend. DC chest tube next week. (5) Hypokalemia: Code(s): E87.6 - Hypokalemia Status: Resolved Assessment and Plan: Potassium normalised. (6) Hypophosphatemia: Code(s): E83.39 - Other disorders of phosphorus metabolism Status: Acute Assessment and Plan: Phosphorus normal at 3.3 (7) Normocytic anemia: Code(s): D64.9 - Anemia, unspecified Status: Acute Assessment and Plan: Acute on chronic with hemoglobin down to 8.8 (8) Metabolic acidosis: Code(s): E87.2 - Acidosis Status: Resolved Assessment and Plan: Secondary to septic shock and hypoperfusion. Now resolved. (9) COPD (chronic obstructive pulmonary disease): Qualifiers: COPD type: unspecified COPD Qualified Code(s): J44.9 - Chronic obstructive pulmonary disease, unspecified Code(s): J44.9 - Chronic obstructive pulmonary disease, unspecified Status: Chronic Assessment and Plan: Moderate emphysema on CT chest. Pt is on symbicort and nebulisers (10) CHF (congestive heart failure): Qualifiers: Heart failure type: unspecified Heart failure chronicity: chronic Qualified Code(s): I50.9 - Heart failure, unspecified Code(s): I50.9 - Heart failure, unspecified Status: Chronic Assessment and Plan: Chronic and stable diastolic CHF (11) GERD (gastroesophageal reflux disease): Qualifiers: Esophagitis presence: esophagitis presence not specified Qualified Code(s): K21.9 - Gastro-esophageal reflux disease without esophagitis Code(s): K21.9 - Gastro-esophageal reflux disease without esophagitis Status: Acute Assessment and Plan: Transition to oral Protonix. (12) DVT prophylaxis: Code(s): Z29.9 - Encounter for prophylactic measures, unspecified Status: Acute Assessment and Plan: Heparin subcutaneously. Subjective Date/time seen: 08/11/19 12:06 Interval history: Pt admitted with septic shock, left pneumothorax and COPD. Successfully extubated on 08/03/2019. Patient had been transferred from ICU to medical floor on 08/04/2019. Remains stable. Pt is confused history of dementia. Pt has chest tube in situ pt being followed by surgery team. Chest tube is to water seal over the weekend, then hopefully removed. Review of Systems Review
--- NOTE | 2019-08-11 16:56 | PC.NURSE ---
Patient is refusing to take [address] Antony was notified. She said it is okay for patient not to receive medications at this time.
--- NOTE | 2019-08-11 19:00 | PC.NURSE ---
Patient refuses dressing changes.
[2019-08-12] VITALS (12 sets, daily range): BP systolic 104–121; BP diastolic 51–62; PULSE 70–96; RESP 16–20; TEMP 36.1–36.9; O2SAT 91–95
[2019-08-12] MEDS: HEPARIN SODIUM 5,000 UNITS/ML VIAL 5000 UNITS SUB-Q ×2 (05:39→14:51)
[2019-08-12 05:54] LABS: Hematocrit 29.3 % (42.0-52.0); Hemoglobin 9.1 g/dL (14.0-18.0); Mean Corpuscular HGB Conc 31.1 g/dl (32-36); Mean Corpuscular Volume 93.3 fl (80-100); Mean Platelet Volume 9.7 fl (7.4-10.4); Platelet Count Result 315 k/mm3 (150-375); Red Blood Count 3.14 M/mm3 (4.6-6.20); Red Cell Distribution Width 17.3 % (11.5-14.5); White Blood Count 6.8 K/mm3 (4.5-10.0)
[2019-08-12 06:20] LABS: Blood Urea Nitrogen 12 mg/dL (9-20); Carbon Dioxide 26 mmol/L (22-30); Chloride 107 mmol/L (98-107); Estimated Glomerular Filt Rate > 60; Glucose 79 mg/dL (75-110); Potassium 3.7 mmol/L (3.4-5.0); Sodium 135 mmol/L (137-145)
[2019-08-12] MEDS: IPRATROPIUM BR 0.02% INH SOLN 0.5 MG/2.5 ML VIAL INHALATION ×3 (08:00→19:15)
[2019-08-12] MEDS: LEVALBUTEROL NEB 1.25 MG/3 ML 0.63 MG INHALATION ×3 (08:00→19:15)
--- NOTE | 2019-08-12 09:00 | PC.NURSE ---
Notified Dr. Drew that patient is refusing medications. He is agitated and yelling obscenities at me.
--- NOTE | 2019-08-12 13:14 | PM.IMPN ---
Progress Note: A&P Assessment and Plan (1) Acute respiratory failure: Qualifiers: Respiratory failure complication: unspecified whether with hypoxia or hypercapnia Qualified Code(s): J96.00 - Acute respiratory failure, unspecified whether with hypoxia or hypercapnia Code(s): J96.00 - Acute respiratory failure, unspecified whether with hypoxia or hypercapnia Status: Acute Assessment and Plan: Secondary to pneumonia and pneumothorax. Successfully extubated on 08/03/2019. Pulmonology consulted. Continue nebulizer treatments and Pulmozyme. Continue to wean off iv hydrocortisone. change to oral prednisone Pt admitted with septic shock, left pneumothorax and COPD. Successfully extubated on 08/03/2019. Patient had been transferred from ICU to medical floor on 08/04/2019. Remains stable. Pt is confused history of dementia. Pt has chest tube in situ pt being followed by surgery team. Chest tube is to water seal over the weekend, repeat chest x-ray did not show any pneumothorax today then hopefully removed tomorrow, however patient is not very cooperative today his refusing to take all his medication including Depakote for seizure we tried to reason with him but he is refusing to take any medication, currently his clinically stable continue to monitor patient is high risk of going into seizure. Will communicate with pharmacy to switch him over to IV Depakote or possibly Keppra to prevent any seizure (2) Septic shock: Code(s): A41.9 - Sepsis, unspecified organism; R65.21 - Severe sepsis with septic shock Status: Resolved Assessment and Plan: Now resolved (3) Pneumonia: Qualifiers: Laterality: bilateral Lung location: unspecified part of lung Pneumonia type: due to unspecified organism Qualified Code(s): J18.9 - Pneumonia, unspecified organism Code(s): J18.9 - Pneumonia, unspecified organism Status: Resolved Assessment and Plan: CT chest on 08/06/2019 as noted above. Bc negative, sputum culture showing yeast. (4) Pneumothorax on left: Code(s): J93.9 - Pneumothorax, unspecified Status: Acute Assessment and Plan: Secondary to left IJ central line placement in ER. Chest tube replaced by Dr. Cuellar on 08/01/2019 due to redevelopment of pneumothorax after removal of original chest tube. No pneumothorax on recent chest x-ray and CT chest from 08/06/2019. Continue water seal over the weekend. Repeat chest x-ray today did not show pneumothorax, will DC chest tube next week. (5) Hypokalemia: Code(s): E87.6 - Hypokalemia Status: Resolved Assessment and Plan: Potassium normalised. (6) Hypophosphatemia: Code(s): E83.39 - Other disorders of phosphorus metabolism Status: Acute Assessment and Plan: Phosphorus normal at 3.3 (7) Normocytic anemia: Code(s): D64.9 - Anemia, unspecified Status: Acute Assessment and Plan: Acute on chronic with hemoglobin down to 8.8 (8) Metabolic acidosis: Code(s): E87.2 - Acidosis Status: Resolved Assessment and Plan: Secondary to septic shock and hypoperfusion. Now resolved. (9) COPD (chronic obstructive pulmonary disease): Qualifiers: COPD type: unspecified COPD Qualified Code(s): J44.9 - Chronic obstructive pulmonary disease, unspecified Code(s): J44.9 - Chronic obstructive pulmonary disease, unspecified Status: Chronic Assessment and Plan: Moderate emphysema on CT chest. Pt is on symbicort and nebulisers (10) CHF (congestive heart failure): Qualifiers: Heart failure chronicity: chronic Heart failure type: unspecified Qualified Code(s): I50.9 - Heart failure, unspecified Code(s): I50.9 - Heart failure, unspecified Status: Chronic Assessment and Plan: Chronic and stable diastolic CHF (11) GERD (gastroesophageal reflux disease): Qualifiers: Esophag
[2019-08-12] MEDS: levETIRAcetam 500MG/NACL 100ML 500 MG/100 ML BAG 400 MG IVPB (14:42)
[2019-08-13] VITALS (8 sets, daily range): BP systolic 94–123; BP diastolic 55–69; PULSE 85–100; RESP 18–22; TEMP 36.2–37.5; O2SAT 90–91
[2019-08-13] MEDS: IPRATROPIUM BR 0.02% INH SOLN 0.5 MG/2.5 ML VIAL INHALATION ×2 (01:50→08:34)
[2019-08-13] MEDS: LEVALBUTEROL NEB 1.25 MG/3 ML 0.63 MG INHALATION ×2 (01:50→08:34)
[2019-08-13 05:48] LABS: Hematocrit 31.1 % (42.0-52.0); Hemoglobin 9.6 g/dL (14.0-18.0); Mean Corpuscular HGB Conc 30.9 g/dl (32-36); Mean Corpuscular Hemoglobin 28.8 pg (26-34); Mean Corpuscular Volume 93.4 fl (80-100); Mean Platelet Volume 9.5 fl (7.4-10.4); Platelet Count Result 273 k/mm3 (150-375); Red Blood Count 3.33 M/mm3 (4.6-6.20); Red Cell Distribution Width 17.6 % (11.5-14.5); White Blood Count 6.4 K/mm3 (4.5-10.0)
[2019-08-13 06:00] LABS: Blood Urea Nitrogen 11 mg/dL (9-20); Calcium 7.9 mg/dL (8.4-10.2); Carbon Dioxide 23 mmol/L (22-30); Chloride 106 mmol/L (98-107); Estimated Glomerular Filt Rate > 60; Glucose 68 mg/dL (75-110); Potassium 3.9 mmol/L (3.4-5.0); Sodium 137 mmol/L (137-145)
[2019-08-13] MEDS: predniSONE 20 MG, predniSONE 10 MG 30 MG PO (08:40)
[2019-08-13] MEDS: levETIRAcetam 500MG/NACL 100ML 500 MG/100 ML BAG 400 MG IVPB (08:40)
--- NOTE | 2019-08-13 10:29 | PC.NURSE ---
Patient refusing any care. He is hitting at me and combative when I try to do my assessment and/or administer medications. Dr. Rajendra velasco.
--- NOTE | 2019-08-13 10:31 | PC.NURSE ---
Patient refusing dressing changes. Aware
--- NOTE | 2019-08-13 12:16 | PM.PNPUL ---
Progress Note: A&P Assessment and Plan (1) Acute respiratory failure: Qualifiers: Respiratory failure complication: unspecified whether with hypoxia or hypercapnia Qualified Code(s): J96.00 - Acute respiratory failure, unspecified whether with hypoxia or hypercapnia Code(s): J96.00 - Acute respiratory failure, unspecified whether with hypoxia or hypercapnia Status: Acute (2) COPD (chronic obstructive pulmonary disease): Qualifiers: COPD type: unspecified COPD Qualified Code(s): J44.9 - Chronic obstructive pulmonary disease, unspecified Code(s): J44.9 - Chronic obstructive pulmonary disease, unspecified Status: Chronic (3) Pneumonia: Qualifiers: Pneumonia type: due to unspecified organism Laterality: bilateral Lung location: unspecified part of lung Qualified Code(s): J18.9 - Pneumonia, unspecified organism Code(s): J18.9 - Pneumonia, unspecified organism Status: Resolved Assessment and Plan: appears to be improving clinically - persistent LLL consolidation vs atelectasis from chest tube - chest tube to water seal, no leak seen - consider removing chest tube - incentive spirometer Q2h while awake (4) Pneumothorax on left: Code(s): J93.9 - Pneumothorax, unspecified Status: Acute Time Spent With Patient Time with patient: 15 - 25 minutes Subjective Date/time seen: 08/13/19 12:16 Interval history: Pt was sleeping but awakens and responds yes and no to questions. He did allow me to exam him. he denied dyspnea or pain. Review of Systems Review of Systems: All systems reviewed & are unremarkable except as noted in HPI and below Exam Const: General: no acute distress HENMT: Mouth: Yes moist mucous membranes Neck: Neck: supple and no JVD Resp: Auscultation: diminished lung sounds Cardio: Rate: regular rate Rhythm: regular rhythm Heart sounds: no murmurs and no rubs GI: Auscultation: normal bowel sounds Skin: General skin exam: normal color Neuro: General: gait normal Extrem: General: normal to inspection, no edema and no pedal edema Objective Data Vital Signs Vital Signs: Vital Signs - 24 hr 08/12/19 13:57 08/12/19 14:00 08/12/19 14:03 Temperature 36.7 C Pulse Rate 96 70 93 Respiratory Rate 18 20 18 Blood Pressure 115/62 Pulse Oximetry 91 08/12/19 19:16 08/12/19 19:18 08/12/19 19:22 Temperature Pulse Rate 88 90 Respiratory Rate 18 18 Blood Pressure Pulse Oximetry 94 08/12/19 20:00 08/12/19 22:00 08/13/19 01:51 Temperature 36.9 C Pulse Rate 90 87 86 Respiratory Rate 18 18 18 Blood Pressure 104/53 L Pulse Oximetry 94 94 08/13/19 01:56 08/13/19 05:59 08/13/19 08:35 Temperature 36.2 C L Pulse Rate 85 92 88 Respiratory Rate 18 22 H 18 Blood Pressure 94/65 L Pulse Oximetry 90 91 08/13/19 08:46 Temperature Pulse Rate Respiratory Rate 18 Blood Pressure Pulse Oximetry Intake/Output Intake/Output: Intake & Output 08/10/19 08/11/19 08/12/19 08/13/19 23:59 23:59 23:59 23:59 Intake Total 853 293 2014 240 Output Total 919 801 5812 200 Balance 23 -310 140 40 Meds/Results Medications: Active Medications Generic Name Dose Route Start Last Admin Trade Name Freq PRN Reason Stop Dose Admin Budesonide/Formoterol Fumarate 2 puff 08/06/19 20:00 08/13/19 08:46 Symbicort 160-4.5 Mcg (*Sp) Inhaler INHALATION Not Given Q12HRT [facility] Divalproex Sodium 250 mg 08/04/19 17:00 08/12/19 10:49 Depakote Sprinkle PO Not Given BID [facility] Heparin Sodium (Porcine) 5,000 units 07/31/19 14:00 08/13/19 05:39 Heparin Sodium SUB-Q Not Given Q8HR [facility] Levetiracetam 500 mg in 100 mls @ 400 mls/hr 08/12/19 14:00 08/13/19 08:40 Keppra Iv IVPB 400 mls/hr Q12HR [facility] Administration Ipratropium [place] 0.5 mg 07/31/19 14:00 08/13/19 08:34 Atrovent Neb INHALATION 0.5 mg Q6HRT [facility] Administration Levalbuterol HCl 0.63
--- NOTE | 2019-08-13 13:55 | PCNFU ---
Nutrition Follow-Up Complete: Inadequate Protein Intake as related to wounds as evidenced by Deep Tissue PU Meet estimated energy needs Goal: limited progress towards goal. Pt current nutrition is Minced and Moist Level 5/Heart Healthy with Mildly Thick liquids, Level 2. Nutrition recommendation:Agree Last recorded weight is 57 kg. Bowel Motility:+BM reported 08/09 Labs Reviewed:Glu 68,Hct 31.1,Hgb 9.6 Meds Noted: Keppra, Prednisone. Additional Notes: Patient has chest tube with plans for that to be discontinued this week. IJ was pulled out by patient today. Oral intakes remain poor 10-15% or refusing meals. diet supplements: Ensure Compact BID providing patient with 220 kcals and 10 gms protein. Multiple skin issues. RD will monitor every 3 days.
--- NOTE | 2019-08-13 14:40 | PC.NURSE ---
Patient still refusing all nursing care. He will not let me assess chest tube or help him with eating, etc. Dr. Rajendra velasco.
--- NOTE | 2019-08-13 16:02 | PM.PNGS ---
Progress Note: A&P Assessment and Plan (1) Pneumothorax on left: Code(s): J93.9 - Pneumothorax, unspecified Status: Acute Assessment and Plan: Chest tube removed today without difficulty. Pending follow-up chest x-ray. Will need to leave dressing intact for 3 days and then can be removed and left open. Patient should stay in the hospital at least another couple days. (2) COPD (chronic obstructive pulmonary disease): Qualifiers: COPD type: unspecified COPD Qualified Code(s): J44.9 - Chronic obstructive pulmonary disease, unspecified Code(s): J44.9 - Chronic obstructive pulmonary disease, unspecified Status: Chronic Subjective Subjective Date/Time Seen: 08/13/19 16:02 No new complaints. Appears comfo Review of Systems Review of Systems: ROS unobtainable: Yes unobtainable due to medical condition Exam Resp: Effort & Inspection: normal respiratory effort Auscultation: rhonchi Other: Left chest tube removed without difficulty. Objective Data Vital Signs Vital Signs: Vital Signs - 24 hr 08/12/19 19:16 08/12/19 19:18 08/12/19 19:22 Temperature Pulse Rate 88 90 Respiratory Rate 18 18 Blood Pressure Pulse Oximetry 94 08/12/19 20:00 08/12/19 22:00 08/13/19 01:51 Temperature 36.9 C Pulse Rate 90 87 86 Respiratory Rate 18 18 18 Blood Pressure 104/53 L Pulse Oximetry 94 94 08/13/19 01:56 08/13/19 05:59 08/13/19 08:35 Temperature 36.2 C L Pulse Rate 85 92 88 Respiratory Rate 18 22 H 18 Blood Pressure 94/65 L Pulse Oximetry 90 91 08/13/19 08:46 08/13/19 14:00 Temperature 37.1 C Pulse Rate 92 Respiratory Rate 18 18 Blood Pressure 102/55 L Pulse Oximetry 91 Intake/Output Intake/Output: Intake & Output 08/10/19 08/11/19 08/12/19 08/13/19 23:59 23:59 23:59 23:59 Intake Total 484 435 0217 460 Output Total 110 873 5105 200 Balance 23 -310 140 260 Meds/Results Medications: Active Medications Generic Name Dose Route Start Last Admin Trade Name Freq PRN Reason Stop Dose Admin Budesonide/Formoterol Fumarate 2 puff 08/06/19 20:00 08/13/19 08:46 Symbicort 160-4.5 Mcg (*Sp) Inhaler INHALATION Not Given Q12HRT [facility] Divalproex Sodium 250 mg 08/04/19 17:00 08/12/19 10:49 Depakote Sprinkle PO Not Given BID [facility] Heparin Sodium (Porcine) 5,000 units 07/31/19 14:00 08/13/19 13:03 Heparin Sodium SUB-Q Not Given Q8HR [facility] Levetiracetam 500 mg in 100 mls @ 400 mls/hr 08/12/19 14:00 08/13/19 09:00 Keppra Iv IVPB Infused Q12HR [facility] Infusion Ipratropium [place] 0.5 mg 07/31/19 14:00 08/13/19 14:29 Atrovent Neb INHALATION Not Given Q6HRT [facility] Levalbuterol HCl 0.63 mg 07/31/19 14:00 08/13/19 14:29 Xopenex 1.25 Mg/3 Ml INHALATION Not Given Q6HRT [facility] Morphine Sulfate 2 mg 08/04/19 07:40 Morphine Sulfate Inj IV PUSH Q4H PRN Pain Rated 7-10 Ondansetron HCl 4 mg 07/30/19 18:19 Zofran Inj IV PUSH Q4H PRN Nausea Prednisone 20 mg/ Prednisone 30 mg 08/11/19 08:00 08/13/19 08:40 10 mg PO 30 mg DAILY@0800 [facility] Administration Radiology Results: ITS Impressions Abdomen X-Ray 07/31/19 09:05 IMPRESSION: NG tube in distal body of stomach High Resolution CT 08/06/19 16:39 IMPRESSION: 1. Small pleural effusions, left worse than right. The left pleural effusion demonstrates mixed attenuation, consistent with an exudate. Left-sided chest tube in the anterior pleural space. 2. Extensive airspace opacities in left lower lobe with volume loss, likely at least predominantly atelectasis. Pneumonia cannot be excluded. Mild dependent atelectasis in right lower lobe. 3. Moderate emphysema. Chest X-Ray 08/13/19 07:11 IMPRESSION: 1. Unchanged left chest tube. No pneumothorax. 2. Unchanged small left pleural effusion with associated atelectasis and/or pneumonia in the lower lung zone. 3. Emphysema. Labs Labs: Labo
[2019-08-13] MEDS: DIVALPROEX SODIUM SPRINKLE 125 MG CAP.DR 250 MG PO (16:36)
--- NOTE | 2019-08-13 16:43 | PM.IMPN ---
Progress Note: A&P Assessment and Plan (1) Acute respiratory failure: Qualifiers: Respiratory failure complication: unspecified whether with hypoxia or hypercapnia Qualified Code(s): J96.00 - Acute respiratory failure, unspecified whether with hypoxia or hypercapnia Code(s): J96.00 - Acute respiratory failure, unspecified whether with hypoxia or hypercapnia Status: Acute Assessment and Plan: 08/13/19 16:43 Secondary to pneumonia and pneumothorax. Successfully extubated on 08/03/2019. Pulmonology consulted. Continue nebulizer treatments and Pulmozyme. Continue to wean off iv hydrocortisone. change to oral prednisone Pt admitted with septic shock, left pneumothorax and COPD. Successfully extubated on 08/03/2019. Patient had been transferred from ICU to medical floor on 08/04/2019. Remains stable. Pt is confused history of dementia. Pt has chest tube in situ pt being followed by surgery team. Chest tube is to water seal over the weekend, repeat chest x-ray did not show any pneumothorax today then hopefully removed tomorrow, however patient is not very cooperative on 08/11 was refusing refusing to take all his medication including Depakote for seizure we tried to reason with him but he is refusing to take any medication, he was clinically stable continue to monitor patient is high risk of going into seizure. Will communicated with pharmacy to switch him over to IV Keppra to prevent any seizure, today patient still uncooperative and does not take his oral medication, finally for the nurse was able to convince him to take his medication, he was seen by the surgeon and chest tube was removed as there is no pneumothorax on the chest x-ray today again, is clinically stable will continue to monitor 2 more days to check for pneumothorax before discharging him (2) Septic shock: Code(s): A41.9 - Sepsis, unspecified organism; R65.21 - Severe sepsis with septic shock Status: Resolved Assessment and Plan: Now resolved (3) Pneumonia: Qualifiers: Pneumonia type: due to unspecified organism Laterality: bilateral Lung location: unspecified part of lung Qualified Code(s): J18.9 - Pneumonia, unspecified organism Code(s): J18.9 - Pneumonia, unspecified organism Status: Resolved Assessment and Plan: CT chest on 08/06/2019 as noted above. Bc negative, sputum culture showing yeast. (4) Pneumothorax on left: Code(s): J93.9 - Pneumothorax, unspecified Status: Acute Assessment and Plan: Secondary to left IJ central line placement in ER. Chest tube replaced by Dr. Cuellar on 08/01/2019 due to redevelopment of pneumothorax after removal of original chest tube. No pneumothorax on recent chest x-ray and CT chest from 08/06/2019. Continue water seal over the weekend. Repeat chest x-ray today did not show pneumothorax, plan is above (5) Hypokalemia: Code(s): E87.6 - Hypokalemia Status: Resolved Assessment and Plan: Potassium normalised. (6) Hypophosphatemia: Code(s): E83.39 - Other disorders of phosphorus metabolism Status: Acute Assessment and Plan: Phosphorus normal at 3.3 (7) Normocytic anemia: Code(s): D64.9 - Anemia, unspecified Status: Acute Assessment and Plan: Acute on chronic with hemoglobin down to 8.8 (8) Metabolic acidosis: Code(s): E87.2 - Acidosis Status: Resolved Assessment and Plan: Secondary to septic shock and hypoperfusion. Now resolved. (9) COPD (chronic obstructive pulmonary disease): Qualifiers: COPD type: unspecified COPD Qualified Code(s): J44.9 - Chronic obstructive pulmonary disease, unspecified Code(s): J44.9 - Chronic obstructive pulmonary disease, unspecified Status: Chronic Assessment and Plan: Moderate emphysema on CT chest. Pt is on symbicort and nebulisers (10) CHF (congestive heart failure): Qualifiers
--- NOTE | 2019-08-13 20:39 | PCRCNOTE ---
pt refused all respiratory treatments stating I don't want it
[2019-08-14 03:05] VITALS: O2SAT 91
[2019-08-14 05:24] LABS: Hematocrit 34.1 % (42.0-52.0); Hemoglobin 11.1 g/dL (14.0-18.0); Mean Corpuscular HGB Conc 32.6 g/dl (32-36); Mean Corpuscular Hemoglobin 29.7 pg (26-34); Mean Corpuscular Volume 91.2 fl (80-100); Mean Platelet Volume 9.8 fl (7.4-10.4); Platelet Count Result 270 k/mm3 (150-375); Red Blood Count 3.74 M/mm3 (4.6-6.20); White Blood Count 8.5 K/mm3 (4.5-10.0)
[2019-08-14 05:38] LABS: Blood Urea Nitrogen 11 mg/dL (9-20); Calcium 8.4 mg/dL (8.4-10.2); Carbon Dioxide 23 mmol/L (22-30); Chloride 108 mmol/L (98-107); Estimated Glomerular Filt Rate > 60; Glucose 82 mg/dL (75-110); Sodium 136 mmol/L (137-145)
[2019-08-14 05:55] VITALS: BP 100/80; PULSE 100; RESP 18; TEMP 37.2; O2SAT 90
[2019-08-14] MEDS: predniSONE 20 MG, predniSONE 10 MG 30 MG PO (08:42)
[2019-08-14] MEDS: DIVALPROEX SODIUM SPRINKLE 125 MG CAP.DR 250 MG PO ×2 (08:42→17:16)
--- NOTE | 2019-08-14 12:20 | PM.IMPN ---
Progress Note: A&P Assessment and Plan (1) Acute respiratory failure: Qualifiers: Respiratory failure complication: unspecified whether with hypoxia or hypercapnia Qualified Code(s): J96.00 - Acute respiratory failure, unspecified whether with hypoxia or hypercapnia Code(s): J96.00 - Acute respiratory failure, unspecified whether with hypoxia or hypercapnia Status: Acute Assessment and Plan: 08/14/19 12:20 Secondary to pneumonia and pneumothorax. Successfully extubated on 08/03/2019. Pulmonology consulted. Continue nebulizer treatments and Pulmozyme. Continue to wean off iv hydrocortisone. change to oral prednisone Pt admitted with septic shock, left pneumothorax and COPD. Successfully extubated on 08/03/2019. Patient had been transferred from ICU to medical floor on 08/04/2019. Remains stable. Pt is confused history of dementia. Pt has chest tube in situ pt being followed by surgery team. Chest tube is to water seal over the weekend, repeat chest x-ray did not show any pneumothorax today then hopefully removed tomorrow, however patient is not very cooperative on 08/11 was refusing refusing to take all his medication including Depakote for seizure we tried to reason with him but he is refusing to take any medication, he was clinically stable continue to monitor patient is high risk of going into seizure. Will communicated with pharmacy to switch him over to IV Keppra to prevent any seizure, today patient still uncooperative and does not take his oral medication, finally for the nurse was able to convince him to take his medication, on 08/12 he was seen by the surgeon and chest tube was removed as there is no pneumothorax on the chest x-ray on 08/12 again, is clinically stable, he is little more cooperative today, took some of his medications, he was seen by surgery teams today, will continue to monitor 1 more days to check for pneumothorax before discharging him tomorrow. (2) Septic shock: Code(s): A41.9 - Sepsis, unspecified organism; R65.21 - Severe sepsis with septic shock Status: Resolved Assessment and Plan: Now resolved (3) Pneumonia: Qualifiers: Pneumonia type: due to unspecified organism Laterality: bilateral Lung location: unspecified part of lung Qualified Code(s): J18.9 - Pneumonia, unspecified organism Code(s): J18.9 - Pneumonia, unspecified organism Status: Resolved Assessment and Plan: CT chest on 08/06/2019 as noted above. Bc negative, sputum culture showing yeast. chest x-ray on 08/12 showed some infiltrates, clinically improving see, by community service technician (4) Pneumothorax on left: Code(s): J93.9 - Pneumothorax, unspecified Status: Acute Assessment and Plan: Secondary to left IJ central line placement in ER. Chest tube replaced by Dr. Cuellar on 08/01/2019 due to redevelopment of pneumothorax after removal of original chest tube. No pneumothorax on recent chest x-ray and CT chest from 08/06/2019. Continue water seal over the weekend. Repeat chest x-ray 08/12 did not show pneumothorax, plan is above (5) Hypokalemia: Code(s): E87.6 - Hypokalemia Status: Resolved Assessment and Plan: Potassium normalised. (6) Hypophosphatemia: Code(s): E83.39 - Other disorders of phosphorus metabolism Status: Acute Assessment and Plan: Phosphorus normal at 3.3 (7) Normocytic anemia: Code(s): D64.9 - Anemia, unspecified Status: Acute Assessment and Plan: Acute on chronic with hemoglobin down to 11.1 (8) Metabolic acidosis: Code(s): E87.2 - Acidosis Status: Resolved Assessment and Plan: Secondary to septic shock and hypoperfusion. Now resolved. (9) COPD (chronic obstructive pulmonary disease): Qualifiers: COPD type: unspecified COPD Qualified Code(s): J44.9 - Chronic obstructive pulmonary disease, unspecified Code(s): J44.9 - Chronic obstruc
[2019-08-14 14:00] VITALS: BP 112/54; PULSE 99; RESP 14; TEMP 37.2; O2SAT 91
[2019-08-14 19:32] VITALS: PULSE 87; RESP 20; O2SAT 91
[2019-08-14 22:00] VITALS: BP 129/54; PULSE 101; RESP 16; TEMP 36.4; O2SAT 94
[2019-08-15 06:00] VITALS: BP 148/84; PULSE 87; RESP 18; TEMP 36.6; O2SAT 96
[2019-08-15 09:15] VITALS: O2SAT 92
[2019-08-15] MEDS: DIVALPROEX SODIUM SPRINKLE 125 MG CAP.DR 250 MG PO (11:47)
[2019-08-15 14:00] VITALS: BP 114/77; PULSE 110; RESP 16; TEMP 37.4; O2SAT 91
--- NOTE | 2019-08-15 16:20 | PM.DS ---
DS: Diagnosis Admitting Diagnosis Admitting Diagnosis: Sepsis, unspecified organism Discharge Diagnosis (1) Acute respiratory failure: Qualifiers: Respiratory failure complication: unspecified whether with hypoxia or hypercapnia Qualified Code(s): J96.00 - Acute respiratory failure, unspecified whether with hypoxia or hypercapnia Code(s): J96.00 - Acute respiratory failure, unspecified whether with hypoxia or hypercapnia Status: Acute Assessment and Plan: 08/14/19 12:20 Secondary to pneumonia and pneumothorax. Successfully extubated on 08/03/2019. Pulmonology consulted. Continue nebulizer treatments and Pulmozyme. Continue to wean off iv hydrocortisone. change to oral prednisone Pt admitted with septic shock, left pneumothorax and COPD. Successfully extubated on 08/03/2019. Patient had been transferred from ICU to medical floor on 08/04/2019. Remains stable. Pt is confused history of dementia. Pt has chest tube in situ pt being followed by surgery team. Chest tube is to water seal over the weekend, repeat chest x-ray did not show any pneumothorax today then hopefully removed tomorrow, however patient is not very cooperative on 08/11 was refusing refusing to take all his medication including Depakote for seizure we tried to reason with him but he is refusing to take any medication, he was clinically stable continue to monitor patient is high risk of going into seizure. Will communicated with pharmacy to switch him over to IV Keppra to prevent any seizure, today patient still uncooperative and does not take his oral medication, finally for the nurse was able to convince him to take his medication, on 08/12 he was seen by the surgeon and chest tube was removed as there is no pneumothorax on the chest x-ray on 08/12 again, is clinically stable, he is little more cooperative today, took some of his medications, he was seen by surgery teams today, will continue to monitor 1 more days to check for pneumothorax, repeat chest x-ray did not show any pneumothorax patient is seen by surgery team stable to discharge back to nursing. (2) Septic shock: Code(s): A41.9 - Sepsis, unspecified organism; R65.21 - Severe sepsis with septic shock Status: Resolved Assessment and Plan: Now resolved (3) Pneumonia: Qualifiers: Pneumonia type: due to unspecified organism Laterality: bilateral Lung location: unspecified part of lung Qualified Code(s): J18.9 - Pneumonia, unspecified organism Code(s): J18.9 - Pneumonia, unspecified organism Status: Resolved Assessment and Plan: CT chest on 08/06/2019 as noted above. Bc negative, sputum culture showing yeast. chest x-ray on 08/12 showed some infiltrates, clinically improving see, by medical biller/coder (4) Pneumothorax on left: Code(s): J93.9 - Pneumothorax, unspecified Status: Acute Assessment and Plan: Secondary to left IJ central line placement in ER. Chest tube replaced by Dr. Cuellar on 08/01/2019 due to redevelopment of pneumothorax after removal of original chest tube. No pneumothorax on recent chest x-ray and CT chest from 08/06/2019. Continue water seal over the weekend. Repeat chest x-ray 08/12 did not show pneumothorax, plan is above (5) Hypokalemia: Code(s): E87.6 - Hypokalemia Status: Resolved Assessment and Plan: Potassium normalised. (6) Hypophosphatemia: Code(s): E83.39 - Other disorders of phosphorus metabolism Status: Acute Assessment and Plan: Phosphorus normal at 3.3 (7) Normocytic anemia: Code(s): D64.9 - Anemia, unspecified Status: Acute Assessment and Plan: Acute on chronic with hemoglobin down to 11.1 (8) Metabolic acidosis: Code(s): E87.2 - Acidosis Status: Resolved Assessment and Plan: Secondary to septic shock and hypoperfusion. Now resolved. (9) COPD (chronic obstructive pulmonary disease): Qualifiers:
--- NOTE | 2019-08-15 16:39 | PC.NURSE ---
Guardian notified of discharge via telephone voice message.
--- NOTE | 2019-08-15 17:08 | PCCCNOTE ---
Received call from HIEU Tiwari regarding this patient. Karie was told by [facility] that a bed would not be available for this patient today due to need for isolation needs since the patient is coming from an outside facility. I spoke with Heather at the [facility] who confirmed this as they were not informed that patient would be arriving today and room will not be able to have necessary precautions in place with this short notice. Confirmed that room would be available tomorrow and that staff will be in at 6am to begin preparing his room. Spoke with Karie again and relayed this information. Plan is for [id number] report to be given in morning to [facility].
[2019-08-15] MEDS: IPRATROPIUM BR 0.02% INH SOLN 0.5 MG/2.5 ML VIAL INHALATION (19:44)
[2019-08-15 22:00] VITALS: BP 112/64; PULSE 94; RESP 18; TEMP 36.6; O2SAT 90
[2019-08-16 06:00] VITALS: BP 109/64; PULSE 100; RESP 20; TEMP 36.4; O2SAT 90
[2019-08-16] MEDS: DIVALPROEX SODIUM SPRINKLE 125 MG CAP.DR 250 MG PO (07:40)
== END 2019-08-16 10:50 | DRG 871 ==
LOC: ANHED 18:33 → ANHICU 18:34 → ANHIMU 08-05 10:50 → ANH2MED 08-15 16:19 → ANH3MEDSUR 08-17 15:43 → ANHICU 08-17 15:43 → ANHIMU 08-17 15:43
PROVIDERS: Family Medicine; Internal Medicine; Surgery; Admitting Provider Family Medicine; Emergency Provider Family Medicine; Visit Provider Hospitalist
DX: A41.9 Sepsis, unspecified organism (principal); R65.21 Severe sepsis with septic shock; J96.01 Acute respiratory failure with hypoxia; J18.9 Pneumonia, unspecified organism; E87.2 Acidosis; I50.32 Chronic diastolic (congestive) heart failure; S27.0XXA Traumatic pneumothorax, initial encounter; N17.9 Acute kidney failure, unspecified; B37.89 Other sites of candidiasis; J98.11 Atelectasis; T17.890A Other foreign object in other parts of respiratory tract causing asphyxiation, initial encounter; D72.829 Elevated white blood cell count, unspecified; I11.0 Hypertensive heart disease with heart failure; J43.9 Emphysema, unspecified; E87.6 Hypokalemia; D64.9 Anemia, unspecified; F03.90 Unspecified dementia, unspecified severity, without behavioral disturbance, psychotic disturbance, mood disturbance, and anxiety; N32.9 Bladder disorder, unspecified; E83.39 Other disorders of phosphorus metabolism; E78.5 Hyperlipidemia, unspecified; I73.9 Peripheral vascular disease, unspecified; K21.9 Gastro-esophageal reflux disease without esophagitis; Z89.512 Acquired absence of left leg below knee; Z89.511 Acquired absence of right leg below knee
CPT/HCPCS: 31500; 36415; 36430; 36556; 36600; 51701; 71045; 71250; 74018; 80048; 80053; 80202; 81001; 82375; 82805; 83050; 83605; 83735; 84100; 84484; 85025; 85027; 86850; 86900; 86901; 86920; 87040; 87070; 87081; 87086; 87205; 87804; 92610; 93005; 93306; 94002; 94003; 94640; 96365; 96366; 96367; 96368; 96375; 96376; 99291; A9270; C1729; C1751; C9113; J0330; J1644; J1720; J1940; J1953; J2060; J2250; J2370; J2543; J3010; J3370; J3480; J7030; J7050; J7060; J7070; J7120; J7512; P9016

== ENCOUNTER 2019-08-30 18:54 | Inpatient (IN) | payer MEDICARE, MEDICAID, SELFPAY ==
--- NOTE | ~2019-08-30 | XR_ITS ---
XR chest 1V 08/30/2019 19:57 Indication: Fever. Procedure: AP chest Comparison: Comparison to multiple prior studies sequentially, with oldest reviewed study dated 08/12. Findings: Heart size normal. Patchy airspace disease right mid and left lower lung, compatible with p neumonia. Heart size normal. There is atherosclerosis. There is emphysema. No acute osseous abnormali ty. Impression: 1: Patchy bilateral airspace disease, compatible with pneumonia. 2: Emphysema. Reviewed, dictated and finalized at location A. Impression: 1: Patchy bilateral airspace disease, compatible with pneumonia. 2: Emphysema.
--- NOTE | ~2019-08-30 | XR_ITS ---
EXAMINATION: XR chest 1V portable DATE: 09/01/2019 15:32 INDICATION: Pneumonia TECHNIQUE: frontal view of the chest was obtained. COMPARISON: Chest radiograph dated 08/30/2019 FINDINGS: Patient is rotated towards the left. Emphysema with increased lucency and architectural distortion at the bilateral apices. Mild biapical pleural-parenchymal scarring. Right lung is otherwise clear. The re is mild elevation of the left hemidiaphragm. Persistent opacities in the left lower lung zone. No pleural effusion or pneumothorax. Heart size is normal. Atherosclerotic aorta. IMPRESSION: 1. Persistent opacities in the left lower lung zone with mild associated volume loss which could repr esent atelectasis and/or pneumonia. 2. Emphysema. Reviewed, dictated and finalized at location A. IMPRESSION: 1. Persistent opacities in the left lower lung zone with mild associated volume loss which could represent atelectasis and/or pneumonia. 2. Emphysema.
--- NOTE | ~2019-08-30 | CT_ITS ---
EXAMINATION: CT brain wo con DATE: 08/30/2019 19:50 INDICATION: Altered mental status after fall TECHNIQUE: Computed tomography (CT) of the head was performed without intravenous contrast. The dose- length product was 1362.00 mGy-cm. The mA was adjusted according to patient size. Iterative reconstru ction technique was employed. COMPARISON: None FINDINGS: Generalized atrophy. There is intracranial atherosclerosis. There are scattered severe lucia ventricular and subcortical white matter changes, most likely related to small vessel ischemic diseas e (microangiopathy). No acute intracranial hemorrhage, infarction, mass or mass effect. Chronic bilat eral cerebellar infarctions. Chronic bilateral lacunar infarctions. Chronic right thalamic infarct. N o depressed skull fracture. Paranasal sinuses and mastoids are pneumatized. IMPRESSION: 1. No acute intracranial abnormality. 2: Chronic bilateral cerebellar and lacunar infarctions. Chronic right thalamic infarction. 3: Chronic age-related findings. Reviewed, dictated and finalized at location A.
[2019-08-30 18:56] VITALS: BP 102/71; PULSE 117; RESP 23; TEMP 38; O2SAT 96
--- NOTE | 2019-08-30 19:06 | ECG_ITS ---
Measurements Intervals [place] Rate: 112 P: 57 IL: 124 QRS: 49 QRSD: 90 T: 67 QT: 317 QTc: 434 Interpretive Statements SINUS TACHYCARDIA VENTRICULAR PREMATURE COMPLEX LOW QRS VOLTAGE IN LIMB LEADS BASELINE ARTIFACT- I, II, AVR, AVL, V1 ABNORMAL ECG Electronically Signed On 08-31-2019 7:08:20 CDT by Morgan Stevens D.O.
--- NOTE | 2019-08-30 19:28 | ED.AMS ---
HPI - Altered Mental Status General Chief Complaint: Altered Mental Status Stated Complaint: fall, ams Time Seen by Provider: 08/30/19 19:22 Source: patient Mode of arrival: ambulatory Limitations: no limitations History of Present Illness HPI narrative: Patient is a 69-year-old male who presents to the emergency department via EMS from local halfway with report of altered mental status. Patient was noted to be tachycardic and febrile. Patient was admitted to this hospital 1 month ago with sepsis and pneumonia. Patient is denying any complaints at this time other than being thirsty. MD complaint: altered mental status Associated symptoms: fever Related Data Home Medications Medication Instructions Recorded Confirmed Multivitamin 50 Plus 1 tablet PO DAILY 07/30/19 07/30/19 acetaminophen 650 mg PO Q4-6H PRN 07/30/19 07/30/19 amlodipine 10 mg PO DAILY 07/30/19 07/30/19 aspirin [Aspir-81] 81 mg PO DAILY 07/30/19 07/30/19 atorvastatin 10 mg PO HS 07/30/19 07/30/19 cholecalciferol (vitamin D3) 50,000 unit PO MONTHLY 07/30/19 07/30/19 divalproex 250 mg PO BID 07/30/19 07/30/19 lisinopril 2.5 mg PO DAILY 07/30/19 07/30/19 metoprolol succinate 25 mg PO DAILY 07/30/19 07/30/19 omeprazole 20 mg PO DAILY 07/30/19 07/30/19 Allergies Allergy/AdvReac Type Severity Reaction Status Date / Time No Known Allergies Allergy Verified 08/30/19 21:23 Review of Systems Review of Systems: All systems reviewed & are unremarkable except as noted in HPI and below Constitutional: Constitutional: Reports fever(s) PMFSH Past Medical History Medical History (Updated 08/30/19 @ 22:37 by Lorna Sears MD) Bladder mass CHF (congestive heart failure) COPD (chronic obstructive pulmonary disease) Dementia Emphysema lung GERD (gastroesophageal reflux disease) HLD (hyperlipidemia) HTN (hypertension) Pneumonia Pneumothorax on left PVD (peripheral vascular disease) Septic shock UTI (urinary tract infection) Surgical History Surgical History (Updated 08/30/19 @ 19:33 by Lorna Sears MD) History of below-knee amputation of both lower extremities History of chest tube placement Social History Social History (Updated 08/30/19 @ 22:33 by Lorna Sears MD) Living arrangements: halfway Gender identity (if verbalized by the patient): Male Spiritual care concerns: No Exam Const: General: cooperative, no acute distress and alert Nutritional Appearance: thin Orientation/consciousness: patient oriented x3 Limitations: no limitations HENMT: Mouth: Yes lip normal and Yes dry mucous membranes Resp: Effort & Inspection: normal respiratory effort Auscultation: clear to auscultation bilaterally Cardio: Rate: tachycardic Rhythm: regular rhythm GI: GI Palp: Yes Soft to palpation and No Tenderness to palpation present (GI) Auscultation: normal bowel sounds Skin: General skin exam: normal color Other: Scattered superficial wounds to extremities Neuro: General: patient oriented x3 Cognition (Neuro): normal cognition Speech: normal speech Extrem: General: full ROM, no clubbing, cyanosis or edema and amputation noted Below the knee: bilateral Right lower extremity: lower leg Psych: Appearance: disheveled Mental Status: mental status grossly normal Affect: normal affect Attitude: cooperative Course Course Emergency Course: Patient presents to the emergency department with report of altered mental status from halfway. Patient is tachycardic, febrile, and tachypneic. He has elevated white blood cell count and findings of pneumonia and UTI on testing. Patient cultured and started on broad-spectrum IV antibiotics. Patient given IV fluid bolus. Patient will be tested for COVID-19 due to bilateral infiltrates noted on chest x-ray that are underwhelming in appearance and patient is high risk living in a detention facility. Consultations Consultation #1: Case discussed with katia Perdomo
[2019-08-30 19:46] LABS: Basophils Absolute Auto 0.1 K/mm3 (0.0-0.1); Basophils Percent Auto 0.3 % (0.2-1.2); Eosinophils Percent Auto 0.1 % (0-4.4); Hematocrit 34.1 % (42.0-52.0); Hemoglobin 10.7 g/dL (14.0-18.0); Immature Granulocyte Percent A 0.7 % (0-0.5); Lymphocytes Absolute Auto 2.79 K/mm3 (0.9-3.2); Lymphocytes Percent Auto 18.5 % (18.3-44.2); Mean Corpuscular HGB Conc 31.4 g/dl (32-36); Mean Corpuscular Hemoglobin 28.4 pg (26-34); Mean Corpuscular Volume 90.5 fl (80-100); Mean Platelet Volume 10.1 fl (7.4-10.4); Monocytes Absolute Auto 1.5 K/mm3 (0.1-0.6); Neutrophils Absolute Auto 10.6 K/mm3 (1.3-6.7); Neutrophils Percent Auto 70.4 % (45.5-73.1); Platelet Count Result 452 k/mm3 (150-375); Red Blood Count 3.77 M/mm3 (4.6-6.20); Red Cell Distribution Width 15.8 % (11.5-14.5); White Blood Count 15.1 K/mm3 (4.5-10.0)
[2019-08-30 19:56] LABS: INR 1.1; Prothrombin Time 13.6 Seconds (11.1-14.7)
[2019-08-30 19:58] LABS: Lactic Acid Reflex 1.4 mmol/L (0.7-2.1)
[2019-08-30 20:01] LABS: Alanine Aminotransferase 19 U/L (4-50); Alkaline Phosphatase 105 U/L (38-126); Aspartate Amino Transferase 29 U/L (17-59); Bilirubin,Total 0.5 mg/dL (0.2-1.3); Blood Urea Nitrogen 23 mg/dL (9-20); CRP 6.2 mg/dL (<1.0); Calcium 8.4 mg/dL (8.4-10.2); Carbon Dioxide 25 mmol/L (22-30); Chloride 103 mmol/L (98-107); Estimated Glomerular Filt Rate > 60; Glucose 118 mg/dL (75-110); Potassium 4.2 mmol/L (3.4-5.0); Sodium 134 mmol/L (137-145)
[2019-08-30] MEDS: LACTATED RINGERS 1,000 ML 999 ML IV CONT (20:02)
[2019-08-30 20:28] LABS: Add Urine Microscopic? YES; Appearance Urine Cloudy (Clear); Bacteria Urine Trace /hpf; Bilirubin Urine Negative (Negative); Blood Urine 1+ (Negative); Budding Yeast Urine Present /hpf; Color Urine Yellow (Yellow); Glucose Urine UA Negative (Negative); Ketones Urine Trace mg/dL (Negative); Leukocyte Esterase Ur 2+ LEU/UL (Negative); Mucus Urine Heavy /lpf; Nitrate Urine Positive (Negative); Protein Urine 2+ mg/dL (Negative); RBC Urine 21-50 /hpf (0-2); Specific Grav Ur 1.023 (1.001-1.035); WBC Urine >75 /hpf
[2019-08-30 21:11] VITALS: BP 129/77; PULSE 96; RESP 21; TEMP 36.8; O2SAT 95
[2019-08-30 21:30] VITALS: RESP 20
[2019-08-30 21:36] VITALS: BP 124/74; PULSE 109; RESP 16
[2019-08-30 23:53] VITALS: BP 110/67; PULSE 98; RESP 18; O2SAT 98
[2019-08-31] VITALS (8 sets, daily range): BP systolic 95–151; BP diastolic 65–80; PULSE 82–108; RESP 16–20; TEMP 36.1–37.5; O2SAT 94–99
--- NOTE | 2019-08-31 00:39 | ADMGEN ---
This patient, Garcia Goodwin, was admitted to 3 Med Surg Room 330-01. Patient/family oriented to hospital policies and general routines including ID bracelet, bed and alarms, visiting hours, pain management, procedures, bathroom and other care routines, personal items, smoking policy, room service/diet, and visiting hours. Valuables list has been completed. Information on how to activate the Rapid Response Team has been discussed. Patient/Family are encouraged to report perceived risks to care and to ask questions if they do not understand what they are told or what they should do.
[2019-08-31] MEDS: LACTATED RINGERS 1,000 ML 150 ML IV CONT ×2 (01:58→15:57)
--- NOTE | 2019-08-31 02:33 | PM.IMHP ---
H&P: HPI History of Present Illness Chief complaint: Sepsis, Pneumonia, UTI Narrative: Date and time of patient contact: 08/30/2019 at 11:15 p.m. Garcia Goodwin is a 69 year old male with a past medical history of recent hospitalization (the 07/30/2019-08/15/2019) with sepsis, pneumonia and iatrogenic left, COPD, to the ER from and Rehab via EMS due to reported altered mental status. alf reported that the patient had a fever and tachycardia prior to calling EMS. The patient had evidently had a fall on the . The patient was monitored overnight and did not have any significant change in his mental status. However when the patient was evaluated by the nurse practitioner at the detention it was decided to transfer him to the hospital given that he had tachycardia and fever. Source of information is ER records and past medical records as the patient has dementia and was uncooperative with my exam. Patient was swinging and hitting at both me and the nurse at bedside. The patient inked stethoscope out of my ears and was swinging around violently at time of my evaluation. When staff tried to introduce themselves to the patient he stated ?I do not give a fuck.? Review of Systems Review of Systems: ROS unobtainable: Yes unobtainable due to medical condition and unobtainable due to mental status PMFSH Past Medical History Medical History (Updated 08/31/19 @ 03:03 by Joanna Lozano DO) Acute respiratory failure Requiring intubation 07/30/2019 through 08/03/2019 Bladder mass CHF (congestive heart failure) Technically difficult echocardiogram 07/31/2019 demonstrated grossly normal ejection fraction, right ventricular chamber dimension mildly enlarged, left atrial chamber mildly enlarged, mild aortic valve sclerosis, mild tricuspid valve regurgitation COPD (chronic obstructive pulmonary disease) Dementia Emphysema lung GERD (gastroesophageal reflux disease) HLD (hyperlipidemia) HTN (hypertension) Iatrogenic pneumothorax Left iatrogenic pneumothorax during left the IJ placement july 30, 2019 Normocytic anemia Pneumonia PVD (peripheral vascular disease) Status post bilateral below-knee amputation Septic shock 07/30/2019 Surgical History Surgical History (Updated 08/31/19 @ 02:54 by Joanna Lozano DO) History of below-knee amputation of both lower extremities History of chest tube placement July 30, 2019 removed 08/13/2019 Family History Family History Other Family history unknown Social History Social History (Updated 08/31/19 @ 02:55 by Joanna Lozano DO) Social History: Primary care physician: Dr. Leonard Negrete Code status: Full code Smoking status: Unknown if ever smoked Living arrangements: detention Additional occupation/education comments: [employer] Gender identity (if verbalized by the patient): Male Spiritual care concerns: No Meds Home Medications and Allergies Home Medications Medication Instructions Recorded Confirmed Type Multivitamin 50 Plus 1 tablet PO DAILY 07/30/19 08/30/19 History acetaminophen 650 mg PO Q4-6H PRN 07/30/19 08/30/19 History amlodipine 10 mg PO DAILY 07/30/19 08/30/19 History aspirin [Aspir-81] 81 mg PO DAILY 07/30/19 08/30/19 History atorvastatin 10 mg PO HS 07/30/19 08/30/19 History cholecalciferol (vitamin D3) 50,000 unit PO MONTHLY 07/30/19 08/30/19 History divalproex 250 mg PO BID 07/30/19 08/30/19 History lisinopril 2.5 mg PO DAILY 07/30/19 08/30/19 History metoprolol succinate 25 mg PO DAILY 07/30/19 08/30/19 History omeprazole 20 mg PO DAILY 07/30/19 08/30/19 History budesonide-formoterol [Symbicort] 2 puff INHALATION Q12HRT #1 device 08/15/19 08/30/19 Rx levalbuterol HCl 0.63 mg INHALATION Q6HRT #1 device 08/15/19 08/30/19 Rx prednisone 10 mg PO DAILY #13 tablet 08/15/19 08/30/19 Rx Allergies Allergy/AdvReac Type Severity Reaction Statu
[2019-08-31 05:23] LABS: Basophils Absolute Auto 0.1 K/mm3 (0.0-0.1); Basophils Percent Auto 0.4 % (0.2-1.2); Eosinophils Percent Auto 0.3 % (0-4.4); Hemoglobin 9.8 g/dL (14.0-18.0); Immature Granulocyte Absolute 0.11 K/mm3 (0.00-0.031); Immature Granulocyte Percent A 0.9 % (0-0.5); Lymphocytes Absolute Auto 2.21 K/mm3 (0.9-3.2); Lymphocytes Percent Auto 18.9 % (18.3-44.2); Mean Corpuscular HGB Conc 30.6 g/dl (32-36); Mean Corpuscular Hemoglobin 28.2 pg (26-34); Mean Corpuscular Volume 92.2 fl (80-100); Mean Platelet Volume 9.7 fl (7.4-10.4); Monocytes Absolute Auto 1.4 K/mm3 (0.1-0.6); Neutrophils Absolute Auto 7.9 K/mm3 (1.3-6.7); Neutrophils Percent Auto 67.5 % (45.5-73.1); Platelet Count Result 374 k/mm3 (150-375); Red Blood Count 3.47 M/mm3 (4.6-6.20); Red Cell Distribution Width 15.8 % (11.5-14.5); White Blood Count 11.7 K/mm3 (4.5-10.0)
[2019-08-31 05:50] LABS: Blood Urea Nitrogen 19 mg/dL (9-20); Calcium 8.2 mg/dL (8.4-10.2); Carbon Dioxide 27 mmol/L (22-30); Chloride 103 mmol/L (98-107); Estimated Glomerular Filt Rate > 60; Glucose 93 mg/dL (75-110); Potassium 4.5 mmol/L (3.4-5.0); Sodium 132 mmol/L (137-145)
--- NOTE | 2019-08-31 12:13 | PM.IMPN ---
Progress Note: A&P Assessment and Plan (1) Sepsis: Qualifiers: Sepsis acute organ dysfunction status: without acute organ dysfunction Sepsis type: sepsis due to unspecified organism Qualified Code(s): A41.9 - Sepsis, unspecified organism Code(s): A41.9 - Sepsis, unspecified organism Status: Acute Assessment and Plan: -----likely due to UTI and possible pneumonia. COVID-19 testing pending. He had 100.4 fever, tachycardia and tachypnea. At this time he is not tachypneic but is altered. He does have a past history of refusing medications and care according to the discharge summary earlier this month. Will continue ceftriaxone and azithromycin. At this time the patient is refusing an IV, to take any of his medications, or to cooperate. For his safety and to be able to give medications, 1 dose of Zyprexa will be given and we will start an IV once he is more calm. If he does not participate may change ceftriaxone to IM. Monitor cultures. (2) Pneumonia: Qualifiers: Laterality: bilateral Lung location: lower lobe of lung Pneumonia type: due to unspecified organism Qualified Code(s): J18.9 - Pneumonia, unspecified organism Code(s): J18.9 - Pneumonia, unspecified organism Status: Acute Assessment and Plan: -----bilateral infiltrates on chest x-ray. See above. COVID-19 pending. Because the likelihood of his infection being from his UTI and possible COVID-19, I am not going to treat him with hospital-acquired pneumonia antibiotics at this time. Will escalate antibiotics if needed. His white blood cell count has already improved. (3) UTI (urinary tract infection): Qualifiers: Hematuria presence: with hematuria Urinary tract infection type: site unspecified Qualified Code(s): N39.0 - Urinary tract infection, site not specified; R31.9 - Hematuria, unspecified Code(s): N39.0 - Urinary tract infection, site not specified Status: Acute Assessment and Plan: -----see above. Await cultures and continue ceftriaxone . 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 Zyprexa will be given as stated above. Time Spent With Patient Time with patient: 25 - 35 minutes Subjective Date/time seen: 08/31/19 12:13 Interval history: Pt is a 69-year-old male here for altered mental status, fever, and UTI/ pneumonia. Patient was seen today and would not cooperate for exam. He would not speak or follow commands. He was aggressive with me at bedside Review of Systems Review of Systems: All systems reviewed & are unremarkable except as noted in HPI and below Exam Narrative: Exam Narrative: General: Elderly patient resting comfortably sitting up in bed in no acute respiratory distress HEENT: normocephalic Neck: Refused Neuro: Refused CV: Refused Resp: Refused Abd: Refused Extremities: Refused Objective Data Vital Signs Vital Signs: Vital Signs - 24 hr 08/30/19 18:56 08/30/19 21:11 08/30/19 21:30 Temperature 100.4 F H 98.3 F Pulse Rate 117 H 96 Respiratory Rate 23 H 21 H 20 Blood Pressure 102/71 129/77 Pulse Oximetry 96 95 08/30/19 21:36 08/30/19 23:53 08/31/19 00:00 Temperature Pulse Rate 109 H 98 98 Respiratory Rate 16 18 Blood Pressure 124/74 110/67 Pulse Oximetry 98 08/31/19 02:05 08/31/19 06:55 08/31/19 07:30 Temperature 99.1 F 99.5 F Pulse Rate 105 H 82 Respiratory Rate 16 18 Blood Pressure 95/65 L 151/71 H Pulse Oximetry 95 95 94 08/31/19 08:00 08/31/19 10:00 Temperature 97.7 F Pulse Rate 105 H Respiratory Rate 18 Blood Pressure 123/65 Pulse Oximetry 95 96 Intake/Output Intake/Output: Intake & Output 08/28/19 08/29/19 08/30/1908/14
[2019-08-31 13:31] LABS: SARS-CoV-2 RNA PCR Negative
[2019-08-31] MEDS: OLANZapine 10 MG INJ VIAL 2.5 MG IM (14:51)
[2019-08-31] MEDS: ENOXAPARIN 40 MG/0.4 ML SYRINGE SUB-Q (15:57)
[2019-08-31] MEDS: DIVALPROEX SODIUM SPRINKLE 125 MG CAP.DR 250 MG PO (16:03)
--- NOTE | 2019-08-31 16:41 | PC.NURSE ---
Patient had fever 08/31/19 @ 1856 of 100.4 F Continue droplet isolation per Haritha until patient is 72 hours afebrile.
[2019-08-31] MEDS: ATORVASTATIN 10 MG TABLET PO (22:08)
[2019-09-01] VITALS (9 sets, daily range): BP systolic 83–123; BP diastolic 49–70; PULSE 85–115; RESP 18–20; TEMP 36.4–37.3; O2SAT 93–100
[2019-09-01] MEDS: LACTATED RINGERS 1,000 ML 150 ML IV CONT ×2 (03:57→21:35)
[2019-09-01 06:27] LABS: Blood Urea Nitrogen 13 mg/dL (9-20); Calcium 8.5 mg/dL (8.4-10.2); Carbon Dioxide 24 mmol/L (22-30); Chloride 106 mmol/L (98-107); Estimated Glomerular Filt Rate > 60; Glucose 85 mg/dL (75-110); Potassium 4.6 mmol/L (3.4-5.0); Sodium 136 mmol/L (137-145)
[2019-09-01 06:56] LABS: Lactate Dehydrogenase 555 U/L (313-618)
[2019-09-01 07:33] LABS: Hematocrit 30.5 % (42.0-52.0); Hemoglobin 9.6 g/dL (14.0-18.0); Mean Corpuscular HGB Conc 31.5 g/dl (32-36); Mean Corpuscular Hemoglobin 28.5 pg (26-34); Mean Corpuscular Volume 90.5 fl (80-100); Mean Platelet Volume 9.8 fl (7.4-10.4); Platelet Count Result 362 k/mm3 (150-375); Red Blood Count 3.37 M/mm3 (4.6-6.20); Red Cell Distribution Width 15.6 % (11.5-14.5); White Blood Count 8.9 K/mm3 (4.5-10.0)
[2019-09-01] MEDS: DIVALPROEX SODIUM SPRINKLE 125 MG CAP.DR 250 MG PO (09:40)
[2019-09-01] MEDS: PANTOPRAZOLE SOD SESQUIHYDRATE 20 MG TAB PO (09:42)
[2019-09-01] MEDS: OPTI-GEN TAB 1 TABLET PO (09:42)
[2019-09-01] MEDS: SILVERGEL (ELTA) 45 ML 1 APPLIC TOPICAL (09:43)
[2019-09-01] MEDS: predniSONE 10 MG TABLET PO (09:43)
[2019-09-01] MEDS: ENOXAPARIN 40 MG/0.4 ML SYRINGE SUB-Q (09:44)
[2019-09-01] MEDS: ASPIRIN 81 MG ENTERIC TABLET PO (09:44)
--- NOTE | 2019-09-01 14:56 | PM.IMPN ---
Progress Note: A&P Assessment and Plan (1) Sepsis: Qualifiers: Sepsis acute organ dysfunction status: without acute organ dysfunction Sepsis type: sepsis due to unspecified organism Qualified Code(s): A41.9 - Sepsis, unspecified organism Code(s): A41.9 - Sepsis, unspecified organism Status: Acute Assessment and Plan: -----likely due to UTI and possible pneumonia. COVID-19 testing negative. He had 100.4 fever 2 days ago but has not had any fevers since. He was improving on the ceftriaxone but because of his Pseudomonas UTI this was changed to Levaquin 08/31 which is sensitive. His white count has returned to normal but his blood pressure is still low last reading 96/59. I will draw a stat lactic. Blood cultures are negative and the patient appeared to be improving today on exam and on labs. Will have to watch his blood pressures closely. His blood pressure medications have been held. Continue IV fluids at 150mls/ per hour. I have spoken to the swing shift hospitalist and SP about this patient. (2) Pneumonia: Qualifiers: Laterality: bilateral Lung location: lower lobe of lung Pneumonia type: due to unspecified organism Qualified Code(s): J18.9 - Pneumonia, unspecified organism Code(s): J18.9 - Pneumonia, unspecified organism Status: Acute Assessment and Plan: -----bilateral infiltrates on chest x-ray. See above. COVID-19 negative and less likely since his ferritin and LDH are normal. Because the likelihood of his infection being from his UTI, I am not going to treat him with hospital-acquired pneumonia antibiotics at this time. I will get a repeat chest x-ray and lactic. Will escalate antibiotics if needed. His white blood cell count has already improved. (3) UTI (urinary tract infection): Qualifiers: Hematuria presence: with hematuria Urinary tract infection type: site unspecified Qualified Code(s): N39.0 - Urinary tract infection, site not specified; R31.9 - Hematuria, unspecified Code(s): N39.0 - Urinary tract infection, site not specified Status: Acute Assessment and Plan: -----see above. Continue Levaquin . 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 He had 1 dose of Zyprexa yesterday but has not needed any today. (5) Hypotension: Code(s): I95.9 - Hypotension, unspecified Status: Acute Assessment and Plan: -----likely due to infection but the patient does not appear symptomatic at this time. Will continue fluids 150 mils per hour and antibiotics. Lactic acid and new chest x-ray pending. Patient is a full code. No evidence of end-organ damage. If this persists or gets worse, may need a central line and higher level care. Subjective Date/time seen: 09/01/19 14:56 Interval history: Pt is a 69-year-old male here for altered mental status, fever, and UTI/ pneumonia. Patient was seen today and a little more cooperative. He denies chest pain, shortness of breath, fevers, chills, dysuria, abdominal pain, leg pain, nausea or vomiting. He is eating and drinking well and request pizza for lunch. Exam Narrative: Exam Narrative: General: Elderly patient resting comfortably sitting up in bed in no acute respiratory distress HEENT: normocephalic Neck: Supple Neuro: Alert oriented x4. Paranoid-like expression CV: Refused Resp: Refused Abd: Refused Extremities: Refused Objective Data Vital Signs Vital Signs: Vital Signs - 24 hr 08/31/19 18:00 08/31/19 22:00 09/01/19 02:00 Temperature 96.9 F L 98.2 F 98.1 F Pulse Rate 108 H 94 85 Respiratory Rate 18 Blood Pressure 103/73 136/80 123/70 Pulse Oximetry 99 96 93 09/01/19 06:00 09/01/19 08:00 04
[2019-09-01 15:08] LABS: Lactic Acid Reflex 1.2 mmol/L (0.7-2.1)
[2019-09-02 02:00] VITALS: BP 90/50; PULSE 94; RESP 16; TEMP 36.4; O2SAT 96
[2019-09-02 06:00] VITALS: BP 95/51; PULSE 99; RESP 16; TEMP 37; O2SAT 93
[2019-09-02 06:28] LABS: Alanine Aminotransferase 15 U/L (4-50); Albumin Level 2.5 g/dL (3.5-5.1); Alkaline Phosphatase 84 U/L (38-126); Aspartate Amino Transferase 23 U/L (17-59); Bilirubin,Total 0.3 mg/dL (0.2-1.3); Blood Urea Nitrogen 11 mg/dL (9-20); Calcium 8.2 mg/dL (8.4-10.2); Carbon Dioxide 28 mmol/L (22-30); Chloride 103 mmol/L (98-107); Estimated Glomerular Filt Rate > 60; Glucose 84 mg/dL (75-110); Potassium 4.1 mmol/L (3.4-5.0); Sodium 134 mmol/L (137-145)
[2019-09-02 06:32] LABS: Hematocrit 28.8 % (42.0-52.0); Hemoglobin 9.1 g/dL (14.0-18.0); Mean Corpuscular HGB Conc 31.6 g/dl (32-36); Mean Corpuscular Hemoglobin 28.5 pg (26-34); Mean Corpuscular Volume 90.3 fl (80-100); Mean Platelet Volume 9.8 fl (7.4-10.4); Platelet Count Result 359 k/mm3 (150-375); Red Blood Count 3.19 M/mm3 (4.6-6.20); Red Cell Distribution Width 15.6 % (11.5-14.5); White Blood Count 7.7 K/mm3 (4.5-10.0)
[2019-09-02 08:00] VITALS: PULSE 90; RESP 16; O2SAT 96
[2019-09-02 12:00] VITALS: BP 110/76; PULSE 90; RESP 16; TEMP 36.6; O2SAT 96
[2019-09-02] MEDS: ASPIRIN 81 MG ENTERIC TABLET PO (12:03)
[2019-09-02] MEDS: DIVALPROEX SODIUM SPRINKLE 125 MG CAP.DR 250 MG PO ×2 (12:03→16:51)
[2019-09-02] MEDS: ENOXAPARIN 40 MG/0.4 ML SYRINGE SUB-Q (12:07)
[2019-09-02] MEDS: OPTI-GEN TAB 1 TABLET PO (12:10)
[2019-09-02] MEDS: PANTOPRAZOLE SOD SESQUIHYDRATE 20 MG TAB PO (12:10)
[2019-09-02] MEDS: SILVERGEL (ELTA) 45 ML 1 APPLIC TOPICAL (12:11)
--- NOTE | 2019-09-02 13:52 | PM.IMPN ---
Progress Note: A&P Assessment and Plan (1) Sepsis: Qualifiers: Sepsis acute organ dysfunction status: without acute organ dysfunction Sepsis type: sepsis due to unspecified organism Qualified Code(s): A41.9 - Sepsis, unspecified organism Code(s): A41.9 - Sepsis, unspecified organism Status: Acute Assessment and Plan: -----likely due to UTI and possible pneumonia. COVID-19 testing negative. He had 100.4 fever on admission but has not had any fevers since. He was improving on the ceftriaxone but because of his Pseudomonas UTI this was changed to Levaquin 08/31 which is sensitive. His white count has returned to normal and his bp is better 110/76. lactic normal. Blood cultures are negative and the patient appeared to be improving today on exam and on labs. Will have to watch his blood pressures closely. His blood pressure medications have been held. Continue IV fluids at 150mls/ per hour but pt did not get all IV hydration since he lost access since overnight. (2) Pneumonia: Qualifiers: Laterality: bilateral Lung location: lower lobe of lung Pneumonia type: due to unspecified organism Qualified Code(s): J18.9 - Pneumonia, unspecified organism Code(s): J18.9 - Pneumonia, unspecified organism Status: Acute Assessment and Plan: -----bilateral infiltrates on chest x-ray. See above. COVID-19 negative and less likely since his ferritin and LDH are normal. Because the likelihood of his infection being from his UTI, I am not going to treat him with hospital-acquired pneumonia antibiotics at this time. Repeat CXR okay. Will escalate antibiotics if needed. His white blood cell count has already improved. (3) UTI (urinary tract infection): Qualifiers: Hematuria presence: with hematuria Urinary tract infection type: site unspecified Qualified Code(s): N39.0 - Urinary tract infection, site not specified; R31.9 - Hematuria, unspecified Code(s): N39.0 - Urinary tract infection, site not specified Status: Acute Assessment and Plan: -----see above. Continue Levaquin . 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 He had 1 dose of Zyprexa earlier in the stay but has not needed any today. (5) Hypotension: Code(s): I95.9 - Hypotension, unspecified Status: Acute Assessment and Plan: -----better today 110/76. likely due to infection but the patient does not appear symptomatic at this time. He has not been getting as many fluids as he should since he lost access site. Will continue fluids 150 mils per hour and antibiotics. Patient is a full code. No evidence of end-organ damage. If this persists or gets worse, may need a central line and higher level care. Subjective Date/time seen: 09/02/19 13:52 Interval history: Pt is a 69-year-old male here for altered mental status, fever, and UTI/ pneumonia. Patient was seen today and a little more cooperative. He denies chest pain, shortness of breath, fevers, chills, dysuria, abdominal pain, leg pain, nausea or vomiting. He is eating and drinking well. Nurse says he did not have IV access since last night. Exam Narrative: Exam Narrative: General: Elderly patient resting comfortably sitting up in bed in no acute respiratory distress HEENT: normocephalic Neck: Supple Neuro: Alert oriented x4. Paranoid-like expression CV: RRR Resp: Refused Abd: Refused Extremities: Refused Objective Data Vital Signs Vital Signs: Vital Signs - 24 hr 09/01/19 14:00 09/01/19 14:54 09/01/19 18:00 Temperature 98.5 F 99.1 F Pulse Rate 102 H 115 H Respiratory Rate 18 18 Blood Pressure 99/55 L 96/59 L 83/64 L Pulse Oximetry 99 100 09/01/19 22:
[2019-09-02 16:00] VITALS: BP 105/72; PULSE 93; RESP 18; TEMP 36.9; O2SAT 96
[2019-09-02] MEDS: LACTATED RINGERS 1,000 ML 150 ML IV CONT (16:49)
[2019-09-02] MEDS: ACETAMINOPHEN 325 MG TABLET 650 MG PO ×2 (16:50→17:50)
[2019-09-02 22:00] VITALS: BP 99/50; PULSE 92; RESP 16; TEMP 36.6; O2SAT 98
[2019-09-02] MEDS: ATORVASTATIN 10 MG TABLET PO (22:13)
[2019-09-03] MEDS: LACTATED RINGERS 1,000 ML 150 ML IV CONT (01:50)
[2019-09-03 01:58] VITALS: PULSE 77; RESP 21; O2SAT 96
[2019-09-03 02:00] VITALS: BP 94/53; PULSE 96; RESP 20; TEMP 36.7; O2SAT 91
[2019-09-03 06:00] VITALS: BP 122/62; PULSE 94; RESP 18; TEMP 36.3; O2SAT 98
[2019-09-03 08:00] VITALS: PULSE 93; RESP 16; O2SAT 95
[2019-09-03] MEDS: ENOXAPARIN 40 MG/0.4 ML SYRINGE SUB-Q (08:50)
[2019-09-03 10:00] VITALS: BP 110/61; PULSE 93; RESP 16; TEMP 37.1; O2SAT 95
--- NOTE | 2019-09-03 10:49 | PM.DS ---
DS: Diagnosis Admitting Diagnosis Admitting Diagnosis: Sepsis, unspecified organism Discharge Diagnosis (1) Sepsis: Qualifiers: Sepsis acute organ dysfunction status: without acute organ dysfunction Sepsis type: sepsis due to unspecified organism Qualified Code(s): A41.9 - Sepsis, unspecified organism Code(s): A41.9 - Sepsis, unspecified organism Status: Acute (2) Pneumonia: Qualifiers: Laterality: bilateral Lung location: lower lobe of lung Pneumonia type: due to unspecified organism Qualified Code(s): J18.9 - Pneumonia, unspecified organism Code(s): J18.9 - Pneumonia, unspecified organism Status: Acute (3) UTI (urinary tract infection): Qualifiers: Hematuria presence: with hematuria Urinary tract infection type: site unspecified Qualified Code(s): N39.0 - Urinary tract infection, site not specified; R31.9 - Hematuria, unspecified Code(s): N39.0 - Urinary tract infection, site not specified Status: Acute (4) 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 Hospital Course: Patient is a 69-year-old male who presented emergency [facility] the [facility] for altered mental status found to have pneumonia and UTI. Patient was admitted to the hospitalist service and started on ceftriaxone and azithromycin. His leukocytosis and symptoms improved with this but his urine culture came back Pseudomonas and he was transition to Levaquin. He did have many instances of hypotension and was treated with IV fluids. He was tested for COVID-19 and was negative. The patient expressed paranoid type activity and I spoke with the social media executive at the retirement who said this is his baseline. The retirement told me he is usually alert and oriented times 2-3. This was how he was the day of discharge as well. The day of discharge he had no complaints and his blood pressure and leukocytosis had improved. His blood pressure medications were adjusted as shown below. Patient was educated about the worrisome signs and symptoms come back to emergency room for was discharged in stable condition. Status at Discharge Overall status at discharge: patient is progressing back to baseline Time Spent with Patient Time attestation: Total time spent providing and/or coordinating discharge services:34 min Exam Narrative: Exam Narrative: General: Elderly patient resting comfortably sitting up in bed in no acute respiratory distress HEENT: normocephalic Neck: Supple Neuro: Alert oriented x4. Paranoid-like expression CV: RRR Resp: Refused Abd: Refused Extremities: Refused DS: Data Data Completed and Pending Labs on day of discharge: Preliminary micro results at discharge 08/30/19 19:38 Blood Culture - Preliminary Blood 08/30/19 20:01 Blood Culture - Preliminary Blood Discharge Plan Discharge Attending physician on discharge: Sergio Haney Consulting providers: Jolene Hooker ; Morgan Stevens ; Juan Manuel Beltre ; Amandeep Aguilar Discharging Clinician: Jolene Hooker Patient Disposition: SNF Activity: as tolerated Diet: regular Discharge Instructions: -Take all of the antibiotics even if you start to feel better -Continue to see wound care with silver gel to right stump and left hip -Worrisome signs and symptoms to come back to the ER for: chest pain, shortness of breath, behavior change, progressive significant weakness, or any other worrisome symptom. Patient Instructions: Antibiotic Form, Urinary Tract Infection in Men (DC), Sepsis (DC), Pneumonia (DC) Stand Alone Forms: General Discharge Information Follow-up/Refe
[2019-09-03] MEDS: SILVERGEL (ELTA) 45 ML 1 APPLIC TOPICAL (12:55)
[2019-09-03 14:00] VITALS: BP 102/48; PULSE 107; RESP 16; TEMP 36.6; O2SAT 95
== END 2019-09-03 15:49 | DRG 698 ==
LOC: ANHED 19:22 → ANH3MEDSUR 22:37
PROVIDERS: Physician Assistant; Admitting Provider Internal Medicine; Emergency Provider Emergency Medicine; Visit Provider Internal Medicine
DX: T83.511A Infection and inflammatory reaction due to indwelling urethral catheter, initial encounter (principal); A41.9 Sepsis, unspecified organism; J18.9 Pneumonia, unspecified organism; N39.0 Urinary tract infection, site not specified; B96.5 Pseudomonas (aeruginosa) (mallei) (pseudomallei) as the cause of diseases classified elsewhere; Z20.828 Contact with and (suspected) exposure to other viral communicable diseases; F03.90 Unspecified dementia, unspecified severity, without behavioral disturbance, psychotic disturbance, mood disturbance, and anxiety; J43.9 Emphysema, unspecified; K21.9 Gastro-esophageal reflux disease without esophagitis; E78.5 Hyperlipidemia, unspecified; I11.0 Hypertensive heart disease with heart failure; I50.9 Heart failure, unspecified; D64.9 Anemia, unspecified; I73.9 Peripheral vascular disease, unspecified; Z89.512 Acquired absence of left leg below knee; Z89.511 Acquired absence of right leg below knee; R31.9 Hematuria, unspecified
CPT/HCPCS: 36415; 51701; 70450; 71045; 80048; 80053; 80076; 81001; 82728; 83605; 83615; 85025; 85027; 85610; 85730; 86140; 87040; 87077; 87086; 87088; 87186; 87635; 93005; 96361; 96365; 96367; 99285; A9270; J0456; J0696; J1650; J1956; J7120; J7512; U0003

== ENCOUNTER 2019-10-07 07:02 | Emergency (ER) | payer MEDICARE, MEDICAID, SELFPAY ==
--- NOTE | 2019-10-07 07:23 | ED.CPR ---
HPI - CPR General Chief Complaint: Cardiac Arrest/CPR Stated Complaint: cardiac arrest Time Seen by Provider: 10/07/19 07:22 Source: EMS Mode of arrival: ambulatory Limitations: clinical condition History of Present Illness HPI narrative: 69 years old white male, half-way, history of hypertension, GERD and COPD. Was complaining of shortness of breath at 5 AM, at 6 AM patient found unresponsive, asystole, then V. fib, shocked once then PEA. On arrival to emergency room patient was in PEA. Received another shot of epinephrine then the code called off Related Data Home Medications Medication Instructions Recorded Confirmed Multivitamin 50 Plus 1 tablet PO DAILY 07/30/19 08/30/19 acetaminophen 650 mg PO Q4-6H PRN 07/30/19 08/30/19 aspirin [Aspir-81] 81 mg PO DAILY 07/30/19 08/30/19 atorvastatin 10 mg PO HS 07/30/19 08/30/19 cholecalciferol (vitamin D3) 50,000 unit PO MONTHLY 07/30/19 08/30/19 divalproex 250 mg PO BID 07/30/19 08/30/19 metoprolol succinate 25 mg PO DAILY 07/30/19 08/30/19 omeprazole 20 mg PO DAILY 07/30/19 08/30/19 Allergies Allergy/AdvReac Type Severity Reaction Status Date / Time No Known Allergies Allergy Verified 08/30/19 21:23 Review of Systems Review of Systems: Narrative: Not available [facility] Past Medical History Medical History Acute respiratory failure Requiring intubation 07/30/2019 through 08/03/2019 Bladder mass CHF (congestive heart failure) Technically difficult echocardiogram 07/31/2019 demonstrated grossly normal ejection fraction, right ventricular chamber dimension mildly enlarged, left atrial chamber mildly enlarged, mild aortic valve sclerosis, mild tricuspid valve regurgitation COPD (chronic obstructive pulmonary disease) Dementia Emphysema lung GERD (gastroesophageal reflux disease) HLD (hyperlipidemia) HTN (hypertension) Iatrogenic pneumothorax Left iatrogenic pneumothorax during left the IJ placement july 30, 2019 Normocytic anemia Pneumonia PVD (peripheral vascular disease) Status post bilateral below-knee amputation Septic shock 07/30/2019 Surgical History Surgical History History of below-knee amputation of both lower extremities History of chest tube placement July 30, 2019 removed 08/13/2019 Family History Family History Other Family history unknown Social History Social History Social History: Primary care physician: Dr. Leonard Negrete Code status: Full code Smoking status: Unknown if ever smoked Additional occupation/education comments: [employer] Gender identity (if verbalized by the patient): Male Spiritual care concerns: No Exam Narrative: Exam Narrative: General appearance: Malnourished, unresponsive Skin: Pale and cold Head: Normocephalic, nontraumatic Eyes: Thick clear film across eyes bilaterally, pupils are dilated and not reactive to light ENT: Intubated Chest and respiratory: No spontaneous breathing Heart: No heartbeats Abdomen: Soft,, scaphoid abdomen no bowel sounds Vascular: No peripheral pulses no capillary refill Musculoskeletal: Unresponsive Neurologic: Unresponsive Course Course Emergency Course: Patient is very much was prior to arrival to the emergency room, CPR was continued, 1 dose of epinephrine was given, monitor showing PEA, no pulses, code called off MDM - Cardiac Arrest/CPR MDM Narrative Medical decision making narrative: Patient found asystole 1 hour prior to arrival to the em
== END 2019-10-07 08:20 | disposition expired ==
PROVIDERS: Emergency Provider Emergency Medicine
DX: I46.9 Cardiac arrest, cause unspecified (principal); K21.9 Gastro-esophageal reflux disease without esophagitis; I50.9 Heart failure, unspecified; J43.9 Emphysema, unspecified; E78.5 Hyperlipidemia, unspecified; I11.0 Hypertensive heart disease with heart failure; I49.3 Ventricular premature depolarization; Z89.512 Acquired absence of left leg below knee; Z89.511 Acquired absence of right leg below knee
CPT/HCPCS: 92950; 99285; J0171